=== PATIENT | female | born 1985 | race Hispanic/Latino ===

== ENCOUNTER 2020-05-29 11:14 | Emergency (ER) | payer OTHER ==
[2020-05-29] MEDS ORDERED: METHYLPREDNISOLONE 125 MG INJ ONE (12:33)
[2020-05-29] MEDS ORDERED: DIPHENHYDRAMINE 50 MG/ML VIAL ONE (12:33)
[2020-05-29] MEDS ORDERED: FENTANYL CITR 100 MCG/2 ML ONE (12:34)
[2020-05-29] MEDS ORDERED: ONDANSETRON 4 MG/2 ML VIAL ONE (12:34)
[2020-05-29 12:43] LABS: Absolute Lymphocytes (CBC) 3.1 K/uL (0.7-4.9); Basophils % 1.2 % (0-1.3); Hematocrit 39.7 % (36.0-45.0); Lymphocytes % 37.8 % (15.3-44.8); MPV 8.3 fL (7.6-11.3); RBC Red Blood Cell Count 4.28 M/uL (3.86-4.86)
[2020-05-29 12:49] LABS: ALT/SGPT 18 U/L (12-78); AST/SGOT 6 U/L (15-37); Albumin 3.8 g/dL (3.4-5.0); Alkaline Phosphatase 123 U/L (45-117); BUN Blood Urea Nitrogen 20 mg/dL (7-18); Bicarbonate 25 mmol/L (21-32); Bilirubin Direct 0.2 mg/dL (0-0.2); Bilirubin Total 0.6 mg/dL (0.2-1.0); Glucose Level 84 mg/dL (74-106); Lipase 93 U/L (73-393); Potassium 4.5 mmol/L (3.5-5.1); Protein, Total 7.7 g/dL (6.4-8.2); Sodium Level 141 mmol/L (136-145)
[2020-05-29 12:54] LABS: HCG, Quantitative < 1 mIU/mL (1-3)
--- NOTE | 2020-05-29 13:29 | RAD REPORT ---
EXAM DESCRIPTION: CTAbdomen Pelvis W Contrast - 05/29/2020 1:17 pm CLINICAL HISTORY: Abdominal pain. ABD PAIN COMPARISON: No comparisons TECHNIQUE: Biphasic CT imaging of the abdomen and pelvis was performed with 100 ml non-ionic IV cont rast. All CT scans are performed using dose optimization technique as appropriate and may include automated exposure control or mA/KV adjustment according to patient size. FINDINGS: The lung bases are clear. The liver, spleen, pancreas, adrenal glands and kidneys are within normal limits. No bowel obstruction, free air, free fluid or abscess. The appendix is normal. No evidence of signi ficant lymphadenopathy. No suspicious bony findings. Enlarged uterus with fluid in the endometrial canal noted. IMPRESSION: No acute intra-abdominal or pelvic finding. Enlarged uterus with fluid in the endometrial canal.
--- NOTE | 2020-05-29 14:02 | ER ---
Nurse's Notes [facility] Name: Bethany Duarte Age: 34 yrs Sex: Female : 1985 Arrival Date: 05/29/2020 Time: 11:17 Bed 14 Private MD: Diagnosis: Abdominal and pelvic pain Presentation: 05/29 11:27 Chief complaint: Patient states: C section on 05/11/2020/, had normal vaginal bleeding ca1 post delivery. Then past 2-3 days, been having pain on lower abdominal area and on the surgical incision site that radiates to the knees. Reports post op site healing well, intact, denies infection. Reports chills and bilateral inguinal pain. Denies urinary symptoms. Denies N/V/D. Coronavirus screen: Client denies travel out of the [place] in the last 14 days. chills, Client presents with at least one sign or symptom that may indicate coronavirus-19. Standard/surgical mask placed on the client. Provider contacted for isolation considerations. The client reports previous COVID testing was negative. Date of collection: May 11, 2020. Ebola Screen: Patient negative for fever greater than or equal to 101.5 degrees Fahrenheit, and additional compatible Ebola Virus Disease symptoms Patient denies exposure to infectious person. Patient denies travel to an Ebola-affected area in the 21 days before illness onset. No symptoms or risks identified at this time. Initial Sepsis Screen: Does the patient meet any 2 criteria? No. Patient's initial sepsis screen is negative. Does the patient have a suspected source of infection? No. Patient's initial sepsis screen is negative. Risk Assessment: Do you want to hurt yourself or someone else? Patient reports no desire to harm self or others. Onset of symptoms was May 29, 2020. 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 - Social history:: Smoking status: Patient reports the use of cigarette tobacco products, smokes one-half pack cigarettes per day. Screenin:35 Abuse screen: Denies threats or abuse. Nutritional screening: No deficits noted. tw2 Tuberculosis screening: No symptoms or risk factors identified. Fall Risk None identified. Assessment: 12:01 Reassessment: provider at bedside at this time. tw2 12:02 General: Appears in no apparent distress. well groomed, Behavior is calm, cooperative, tw2 appropriate for age. Pain: Complains of pain in right lower quadrant and left lower quadrant. Neuro: Level of Consciousness is awake, alert, obeys commands, Oriented to person, place, time, situation. Cardiovascular: Heart tones S1 S2 Patient's skin is warm and dry. Respiratory: Airway is patent Respiratory effort is even, unlabored, Respiratory pattern is regular, symmetrical, Breath sounds are clear bilaterally. GI: Abdomen is round non-distended, Bowel sounds present X 4 quads. Reports "pain on the right side of my incision line", no drainage noted to incision line and no s/s of infection noted on incision line. : Urine is clear, Reports vaginal bleeding that is n/a "small amount yesterday". EENT: No signs and/or symptoms were reported regarding the EENT system. Derm: No signs and/or symptoms reported regarding the dermatologic system. Musculoskeletal: Range of motion: intact in all extremities. 13:03 Reassessment: Patient appears in no apparent distress at this time. Patient and/or tw2 family updated on plan of care and expected duration. Pain level reassessed. Patient is alert, oriented x 3, equal unlabored respirations, skin warm/dry/pink. Patient states feeling better. Patient states symptoms have improved. 14:09 Reassessment: Patient appears in no apparent distress at this time. Patient and/or tw2 family updated on plan of care and expected duration. Pain level reassessed. Patient is alert, oriented x 3, equal unlabored respirations, skin warm/dry/pink. Vital Signs: 11:27 BP 135 / 82; Pulse 74; Resp 18 S; Temp 98.3(O); Pulse Ox 99% on R/A; Height 5 ft. 2 in. ca1 (157.48 cm) (R); Pain 7/10; 12:15 BP 115 / 66; Pulse 52; Resp 17; Pulse Ox 99% on R/A; tw2 13:03 BP 112 / 66; Pulse 51; Resp 17; Pulse Ox 99% on R/A; tw2 14:09 BP 116 / 68; Pulse 53; Resp 17; Pulse Ox 99% on R/A; tw2 ED Course: 11:17 Patient arrived in ED. ag5 11:32 Triage completed. ca1 11:34 Arm band placed on right wrist. ca1 11:35 Aretha Robins, RN is Primary Nurse. tw2 11:36 Placed in gown. Bed in low position. Call light in reach. pt in restroom at this time tw2 collected urine sample. Warm blanket given. 11:45 David Henriquez PA is PHCP. jr8 11:45 León Kruse MD is Attending Physician. jr8 13:17 CT Abd/Pelvis - IV Contrast Only In Process Unspecified. EDMS 14:09 No provider procedures requiring assistance completed. IV discontinued, intact, tw2 bleeding controlled, No redness/swelling at site. Pressure dressing applied. Administered Medications: 12:26 Drug: Zofran (Ondansetron) 4 mg Route: IVP; Site: right antecubital; tw2 12:55 Follow up: Response: No adverse reaction tw2 12:28 Drug: fentaNYL (PF) 50 mcg Route: IVP; Site: right antecubital; tw2 12:55 Follow up: Response: No adverse reaction; Pain is decreased; RASS: Alert and Calm (0) tw2 12:56 Drug: Zofran (Ondansetron) 4 mg Route: IVP; Site: right antecubital; tw2 13:33 Follow up: Response: No adverse reaction tw2 12:58 Drug: Benadryl 25 mg Route: IVP; Site: right antecubital; tw2 13:34 Follow up: Response: No adverse reaction tw2 12:59 Drug: SOLU-Medrol 125 mg Route: IVP; Site: right antecubital; tw2 13:33 Follow up: Response: No adverse reaction tw2 Outcome: 14:02 Discharge ordered by . jr8 14:09 Discharged to home ambulatory, with significant other. tw2 14:09 Condition: stable 14:09 Discharge instructions given to patient, significant other, Instructed on discharge instructions, follow up and referral plans. medication usage, Demonstrated understanding of instructions, follow-up care, medications, Prescriptions given X 1. 14:09 Patient left the ED. tw2 Signatures: Dispatcher [employer] EDMS David Henriquez PA PA jr8 Aretha Robins RN RN tw2 Beth Cruz RN RN ca1 Loan Bradley [facility]
--- NOTE | 2020-05-29 14:03 | EDPHYS ---
Physician Documentation [facility] Name: Bethany Duarte Age: 34 yrs Sex: Female : 1985 Arrival Date: 05/29/2020 Time: 11:17 Bed 14 Private MD: ED Physician León Kruse HPI: 05/29 14:05 This 34 yrs old Female presents to ER via Ambulatory with complaints of jr8 Vaginal Bleeding, Post Problem. 14:05 Onset: The symptoms/episode began/occurred acutely, yesterday. Modifying factors: The jr8 symptoms are alleviated by nothing, the symptoms are aggravated by nothing. Associated signs and symptoms: The patient has no apparent associated signs or symptoms. Severity of symptoms: At their worst the symptoms were moderate, in the emergency department the symptoms are unchanged. The patient has not experienced similar symptoms in the past. The patient has not recently seen a physician. Patient stated that she had May 11. Uncomplicated with 5 days of vaginal bleeding that has since subsided. Stated that yesterday noticed brown discharge with mild blood present. Started to have lower abdominal pain that is not going away. Denies fevers . 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 - Social history:: Smoking status: Patient reports the use of cigarette tobacco products, smokes one-half pack cigarettes per day. ROS: 14:05 Eyes: Negative for injury, pain, redness, and discharge, ENT: Negative for injury, jr8 pain, and discharge, Neck: Negative for injury, pain, and swelling, Cardiovascular: Negative for chest pain, palpitations, and edema, Respiratory: Negative for shortness of breath, cough, wheezing, and pleuritic chest pain, Back: Negative for injury and pain, MS/Extremity: Negative for injury and deformity, Skin: Negative for injury, rash, and discoloration, Neuro: Negative for headache, weakness, numbness, tingling, and seizure. 14:05 Abdomen/GI: Positive for abdominal pain, Negative for nausea, vomiting, and diarrhea. 14:05 : Positive for vaginal bleeding, vaginal discharge. Exam: 14:05 Constitutional: This is a well developed, well nourished patient who is awake, alert, jr8 and in no acute distress. Cardiovascular: Regular rate and rhythm with a normal S1 and S2. No gallops, murmurs, or rubs. Normal PMI, no JVD. No pulse deficits. Respiratory: Lungs have equal breath sounds bilaterally, clear to auscultation and percussion. No rales, rhonchi or wheezes noted. No increased work of breathing, no retractions or nasal flaring. Back: No spinal tenderness. No costovertebral tenderness. Full range of motion. Skin: Warm, dry with normal turgor. Normal color with no rashes, no lesions, and no evidence of cellulitis. MS/ Extremity: Pulses equal, no cyanosis. Neurovascular intact. Full, normal range of motion. Neuro: Awake and alert, GCS 15, oriented to person, place, time, and situation. Cranial nerves II-XII grossly intact. Motor strength 5/5 in all extremities. Sensory grossly intact. Cerebellar exam normal. Normal gait. 14:05 Abdomen/GI: Inspection: obese Bowel sounds: active, all quadrants, Palpation: soft, in all quadrants, moderate abdominal tenderness, in the right lower quadrant and left lower quadrant, rebound tenderness, is not appreciated, voluntary guarding, is not appreciated, involuntary guarding, is not appreciated, no appreciated organomegaly, Indicators: McBurney's point is not tender, Palacios's sign is negative, Rovsing's sign is negative, Liver: tenderness, is not appreciated. Vital Signs: 11:27 BP 135 / 82; Pulse 74; Resp 18 S; Temp 98.3(O); Pulse Ox 99% on R/A; Height 5 ft. 2 in. ca1 (157.48 cm) (R); Pain 7/10; 12:15 BP 115 / 66; Pulse 52; Resp 17; Pulse Ox 99% on R/A; tw2 13:03 BP 112 / 66; Pulse 51; Resp 17; Pulse Ox 99% on R/A; tw2 14:09 BP 116 / 68; Pulse 53; Resp 17; Pulse Ox 99% on R/A; tw2 MDM: 11:46 Patient medically screened. jr8 14:03 Data reviewed: vital signs, nurses notes, lab test result(s), radiologic studies, CT jr8 scan. Data interpreted: Pulse oximetry: on room air is 99 %. Interpretation: normal. Counseling: I had a detailed discussion with the patient and/or guardian regarding: the historical points, exam findings, and any diagnostic results supporting the discharge/admit diagnosis, lab results, radiology results, the need for outpatient follow up, an OB/Gyne specialist, to return to the emergency department if symptoms worsen or persist or if there are any questions or concerns that arise at home. ED course: Patient feeling better. CT shows no surgically emergent findings. Enlarged uterus present with fluid in it. Patient has had mild brown discharge. No foul smelling. No elevation in WBC count and no fever. Patient was out of proportion on initial exam. Will medicate incase mild endometritis is present . 05/29 12:09 Order name: Basic Metabolic Panel; Complete Time: 12:59 jr8 05/29 12:09 Order name: CBC with Diff; Complete Time: 12:45 jr8 05/29 12:09 Order name: Hepatic Function; Complete Time: 12:59 jr8 05/29 12:09 Order name: Lipase; Complete Time: 12:59 jr8 05/29 12:09 Order name: HCG-Quantitative; Complete Time: 12:59 jr8 05/29 12:10 Order name: CT Abd/Pelvis - IV Contrast Only; Complete Time: 13:36 8 05/29 12:09 Order name: IV Saline Lock; Complete Time: 12:29 jr8 05/29 12:09 Order name: Labs collected and sent; Complete Time: 12:29 jr8 05/29 12:10 Order name: Misc. Order: Pretreat patient with Solu medrol, benadryl, and more zofran jr8 [address]; Complete Time: 13:02 Administered Medications: 12:26 Drug: Zofran (Ondansetron) 4 mg Route: IVP; Site: right antecubital; tw2 12:55 Follow up: Response: No adverse reaction tw2 12:28 Drug: fentaNYL (PF) 50 mcg Route: IVP; Site: right antecubital; tw2 12:55 Follow up: Response: No adverse reaction; Pain is decreased; RASS: Alert and Calm (0) tw2 12:56 Drug: Zofran (Ondansetron) 4 mg Route: IVP; Site: right antecubital; tw2 13:33 Follow up: Response: No adverse reaction tw2 12:58 Drug: Benadryl 25 mg Route: IVP; Site: right antecubital; tw2 13:34 Follow up: Response: No adverse reaction tw2 12:59 Drug: SOLU-Medrol 125 mg Route: IVP; Site: right antecubital; tw2 13:33 Follow up: Response: No adverse reaction tw2 Disposition: 14:26 Co-signature as Attending Physician, León Kruse MD. rn Disposition: 05/29/20 14:02 Discharged to Home. Impression: Abdominal and pelvic pain. - Condition is Stable. - Discharge Instructions: Abdominal Pain, Adult, Endometritis. - Prescriptions for Doxycycline Monohydrate 100 mg Oral Tablet - take 1 tablet by ORAL route every 12 hours for 10 days; 20 tablet. - Medication Reconciliation Form, Thank You Letter, Antibiotic Education, Prescription Opioid Use form. - Follow up: Private Physician; When: 5 - 6 days; Reason: Recheck today's complaints, Continuance of care, Re-evaluation by your physician. - Problem is new. - Symptoms have improved. Signatures: Dispatcher [employer] EDLeón Elmore MD MD rn Roszak, Josh, PA PA jr8 Aretha Robins RN RN tw2 Beth Cruz RN RN ca1 Corrections: (The following items were deleted from the chart) 14:09 14:02 05/29/2020 14:02 Discharged to Home. Impression: Abdominal and pelvic pain. tw2 Condition is Stable. Forms are Medication Reconciliation Form, Thank You Letter, Antibiotic Education, Prescription Opioid Use. Follow up: Private Physician; When: 5 - 6 days; Reason: Recheck today's complaints, Continuance of care, Re-evaluation by your physician. Problem is new. Symptoms have improved. jr8
[2020-05-29 14:39] VITALS: TEMP 98.3; O2SAT 99
[2020-05-29 14:51] VITALS: BP 116/68
--- OUTSIDE RECORDS SUMMARY | 2020-05-30 20:16 | XMS REPORT | Continuity of Care Document ---
:1985 Author Organization [facility] t Address [address] [place] [address] Care Team Providers Name Role Phone Maureen Palacios MD Attending Clinician Kirsten GRIGGS Attending Clinician Ab NG Attending Clinician Ab NG Admitting Clinician Payers Payer Name Policy Type Policy Number Effective Date Expiration Date S ource Problems This patient has no known problems. Allergies, Adverse Reactions, Alerts Allergy Allergy Status Severity Reaction(s) Onset Inactive Treating Comm ents Source Name Type Date Date Clinician phenylep DA Active [facility] hrine 04-17 [place] 00:00: [address] iodine DA Active [facility] 8 [place] 00:00: [address] codeine DA Active [facility] [place] 00:00: [address] chlorphe DA [facility]amine 04-17 [place] 00:00: [address] latex DA Active [facility] 04-17 [place] 00:00: [address] phenylep DA Active [facility] hrine 806 [place] HCl 00:00: [address] iodine DA Active [facility] 8 [place] 00:00: [address] codeine DA Active [facility] 8-06 [place] 00:00: [facility] chlorphe DA Active [facility] niramine 8-06 [place] 00:00: [facility] latex DA Active [facility] 8-06 [place] 00:00: [address] phenylep DA Active [facility] hrine 6-11 [place] HCl 00:00: [address] iodine DA Active [facility] 6 [place] 00:00: [facility] codeine DA Active [facility] 6-11 [place] 00:00: [facility] chlorphe DA Active [facility] niramine 6 [place] 00:00: [address] latex DA Active [facility] 611 [place] 00:00: [address] Medications This patient has no known medications. Procedures This patient has no known procedures. Encounters Start End Encounter Admission Attending Care Care Encounter Source Date/Time Date/Time Type Type Clinicians Facility Department ID 2020-05-29 2020-05-29 Telephone Maureen Palacios [facility] [id number] 00:00:00 00:00:00 Misha Head [id number] [place] [id number] Professio [id number] [address] 2020-05-29 2020-05-29 Telephone Maureen Palacios [facility] [id number] 00:00:00 00:00:00 Misha Head [id number] [place] [id number] Professio [phone] [address] 2020-05-21 2020-05-21 [id number] 00:00:00 00:00:00 Sarah Beth Head [id number] [place] [id number] Professio [phone] [address] 2020-05-11 2020-05-13 [facility] ALISTAIR Berger [id number] 15:48:00 11:55:00 Encounter Tiffany RUSSELL [id number] [place] [id number] 2020-05-10 2020-05-10 Telephone Maureen Palacios [id number] 00:00:00 00:00:00 [place] [id number] [place] [id number] Professio [phone] [address] 2020-05-10 2020-05-10 Telephone Maureen Palacios [place] 1.2.840.114 [id number] 00:00:00 00:00:00 [place] [id number] [place] 4.2.7.2.686 Professio [phone] [address] 2020-05-08 2020-05-08 Telephone Maureen Palacios [place] 1.2.840.114 [id number] 00:00:00 00:00:00 [place] [id number] [place] [id number] Professio [phone] [address] 2020-05-06 2020-05-06 Routine Maureen Palacios [place] [id number] 14:51:16 16:17:56 [place] 350.1.13.10 Visit [place] 4.2.7.2.686 Professio [phone] [address] Results Test Description Test Time Test Comments Results Result Comments Source UA RFLX MICR CULT IF INDICATED 2019-10-17 03:35:00 Test Item Value Reference Range Interpretation Comme nts UA COLOR (test code = COLU) Yellow YELLOW UA APPEARANCE (test code = APPU) Clear CLEAR UA GLUCOSE DIPSTICK (test code = DGLUU) Normal NORMAL UA BILIRUBIN DIPSTICK (test code = BILU) Negative NEGATIVE UA KETONE DIPSTICK (test code = KETU) Trace NEGATIVE UA SPECIFIC GRAVITY (test code = SGU) 1.025 1.000-1.032 N UA BLOOD DIPSTICK (test code = SHAUNA) Negative NEGATIVE UA PH DIPSTICK (test code = TREVON) 6.0 5.0-9.0 N UA PROTEIN DIPSTICK (test code = PROU) Negative NEGATIVE UA UROBILINIOGEN DIPSTICK (test code = URO) Normal NORMAL UA NITRITE DIPSTICK (test code = MONSTER) Negative NEGATIVE UA LEUKOCYTE ESTERASE DIPSTICK (test code = LEUU) Negative NEGA TIVE UA WBC (test code = WBCU) 0-2 0-5 UA CULTURE NEEDED? (test code = UACULT) SOURCE: URINESPECIMEN DESCRIPTION: CMCIndication for culture: Suprapubic PainUA [id number] 03:35:00 Test Item Value Reference Range Interpretation Comments UA RBC (test code = RBCU) 6-10 0-5 UA EPITHELIAL CELLS (test code = EPIU) 6-10 0-10 UA MUCUS (test code = MUCU) OCC NONE-FEW SOURCE: URINESPECIMEN DESCRIPTION: CMCIndication for culture: Suprapubic PainUA RFLX MICR CULT IF [id number] 03:35:00 Test Item Value Reference Range Interpretation Comments UA COLOR (test code = COLU) Yellow YELLOW UA APPEARANCE (test code = Clear CLEAR APPU) UA GLUCOSE DIPSTICK (test Normal NORMAL code = DGLUU) UA BILIRUBIN DIPSTICK (test Negative NEGATIVE code = BILU) UA KETONE DIPSTICK (test Trace NEGATIVE code = KETU) UA SPECIFIC GRAVITY (test 1.025 1.000-1.032 N code = SGU) UA BLOOD DIPSTICK (test code Negative NEGATIVE = SHAUNA) UA PH DIPSTICK (test code = 6.0 5.0-9.0 N TREVON) UA PROTEIN DIPSTICK (test Negative NEGATIVE code = PROU) UA UROBILINIOGEN DIPSTICK Normal NORMAL (test code = URO) UA NITRITE DIPSTICK (test Negative NEGATIVE code = MONSTER) UA LEUKOCYTE ESTERASE Negative NEGATIVE DIPSTICK (test code = LEUU) UA WBC (test code = WBCU) 0-2 0-5 UA CULTURE NEEDED? (test Criteria not met code = UACULT) SOURCE: URINESPECIMEN DESCRIPTION: CMCIndication for culture: Suprapubic PainUA [id number] 03:35:00 Test Item Value Reference Range Interpretation Comments UA RBC (test code = RBCU) 6-10 0-5 UA EPITHELIAL CELLS (test code = EPIU) 6-10 0-10 UA MUCUS (test code = MUCU) OCC NONE-FEW SOURCE: URINESPECIMEN DESCRIPTION: CMCIndication for culture: Suprapubic PainUA RFLX MICR CULT IF [id number] 03:34:00 Test Item Value Reference Range Interpretation Comments UA COLOR (test code = COLU) Yellow YELLOW UA APPEARANCE (test code = APPU) Clear CLEAR UA GLUCOSE DIPSTICK (test code = Normal NORMAL DGLUU) UA BILIRUBIN DIPSTICK (test code = Negative NEGATIVE BILU) UA KETONE DIPSTICK (test code = Trace NEGATIVE KETU) UA SPECIFIC GRAVITY (test code = 1.025 1.000-1.032 N SGU) UA BLOOD DIPSTICK (test code = SHAUNA) Negative NEGATIVE UA PH DIPSTICK (test code = TREVON) 6.0 5.0-9.0 N UA PROTEIN DIPSTICK (test code = Negative NEGATIVE PROU) UA UROBILINIOGEN DIPSTICK (test code Normal NORMAL = URO) UA NITRITE DIPSTICK (test code = Negative NEGATIVE MONSTER) UA LEUKOCYTE ESTERASE DIPSTICK (test Negative NEGATIVE code = LEUU) UA WBC (test code = WBCU) 0-5 UA CULTURE NEEDED? (test code = UACULT) SOURCE: URINESPECIMEN DESCRIPTION: CMCIndication for culture: Suprapubic PainUA [id number] 03:34:00 Test Item Value Reference Range Interpretation Comments UA RBC (test code = RBCU) 0-5 SOURCE: URINESPECIMEN DESCRIPTION: CMCIndication for culture: Suprapubic PainHCG [id number] 02:15:00 Test Item Value Reference Range Interpretation Comments HCG SERUM (test 314166 mIU/mL <5 Reporting U nits: code = HCG) micro-internati onal units/mL Concen tration of beta-HCG if healthy non- fe maleis less than 5 micro-internati onal units/mL. Weeks Post LMP Approx hCG Rang e(Last Menstrual Perio d) micro-internati onal units/mL======= ========= ======= ========= ==== 3-4 weeks 9 - 130 4-5 weeks 75 - 2,600 5-6 week s 850 - 20,800 6-7 wee ks 4,000 - 100,200 7-12 weeks 11,500 - 289,00 012-16 weeks 18,300 - 137,41099-15 we eks 1,400 - 53,000(2nd Trimester)29-41 weeks 940 - 60,000(3r d Trimester) - US ABDOMEN [id number] 02:06:00 [place]: [facility] St: REG Name: MARCE BOWER [facility] : 1985 Age/S: 34/F [address] [facility] Unit #: [id number] [facility] [place] [place] [address] Phys: Desiree Rodriguez MD Acct: [id number] Dis Date: Status: REG ER PHONE #: [phone] Exam Date: 10/17/2019 0115 FAX #: [phone] Reason: upper abd pain and tenderness EXAMS: CPT CODE: [id number] US ABDOMEN LTD 28285[place] ultrasound. History: First trimester . Vaginal bleeding. Tech nique and Findings: Ashley scale, color and pulsed Doppler imaging were utilized. Nocomparison studies are available. The uterus measures 11.3 x 5.2 x 7.9 cm. The crown-rump length measures 1.2 cm. The approximate gestational age of the fetus is 7 weeks 2 days. The uterus appears otherwise unremarkable.. heart tones measure 155 bpm. The right ovary measures 2.6 x 2.3 x 2.2 cm. The left ovary measures 1.8 x 1.7 x 1.9 cm. A normal flow pattern is seen in both ovaries. There is no evidence of free fluid within the pelvis. Impression: Single live intrauterine of an approximate gestational age of 7 weeks 2 days. ULTRASOUND: - US PREG 1ST TRIMTR, - US ABDOMEN LTD History: pelvic pain Comparison: None available. Findings: The limitedly visualized portion of the liver has relatively increased echogenicity. No intrahepatic ductal dilation is seen. No cholelithiasis is seen. There is no gallbladder wall thickening or pericholecystic free fluid The common bile duct measures 4 mm The pancreas is incompletely visualized. The right kidney measuring 9.6 cm there is no hydronephrosis. Visualized portions of the aorta and IVC are normal. PAGE 1 Signed Report (CONTINUED) [place]: [facility] St: REG Name: MARCE BOWER [facility] : 1985 Age/S: 34/F [address] Unit #: [id number] Loc: [place] [address] Phys: Desiree Rodriguez MD Acct: [id number] Dis Date: Status: REG ER PHONE #: [phone] Exam Date: 10/17/2019 0115 FAX #: [phone] Reason: upper abdpain and tenderness EXAMS: CPT CODE: [id number] US ABDOMEN LTD 06016 <Continued> Impression: No sonographic evidence of cholelithiasis or acute cholecystitis The appearance the liver is nonspecific but may reflect steatosis versus underlying parenchymal disease at 0206 Reported and signed by: JEAN BORRERO M.D. Facility ACR Accreditation for Ultrasound - September 2011 CC: Bentley Arnett MD; Desiree Rodriguez MD Technologist: ELSIE GAVIN RDMS Transcribed Date/Time/By: 10/17/2019 (205) : By: [email or web address] Orig Print D/T: S: 10/17/2019 (0209) PAGE 2 Signed Report- US PREG [id number] 02:06:00 [place]: [facility] St: REG Name: MARCE BOWER [facility] [place] : 1985 Age/S: 34/F [address] [facility] Unit #: [id number] [facility] [place], [place] [address] Phys: Desiree Rodriguez MD Acct: [id number] Dis Date: Status: REG ER PHONE #: [phone] Exam Date: 10/17/2019 011 FAX #: [phone] Reason: pelvic pain EXAMS: CPT CODE: [id number] US PREG 1ST TRIMTR 15[address] ultrasound. History: First trimester . Vaginal bleeding. Tech nique and Findings: Ashley scale, color and pulsed Doppler imaging were utilized. Nocomparison studies are available. The uterus measures 11.3 x 5.2 x 7.9 cm. The crown-rump length measures 1.2 cm. The approximate gestational age of the fetus is 7 weeks 2 days. The uterus appears otherwise unremarkable.. heart tones measure 155 bpm. The right ovary measures 2.6 x 2.3 x 2.2 cm. The left ovary measures 1.8 x 1.7 x 1.9 cm. A normal flow pattern is seen in both ovaries. There is no evidence of free fluid within the pelvis. Impression: Single live intrauterine of an approximate gestational age of 7 weeks 2 days. ULTRASOUND: - US PREG 1ST TRIMTR, - US ABDOMEN LTD History: pelvic pain Comparison: None available. Findings: The limitedly visualized portion of the liver has relatively increased echogenicity. No intrahepatic ductal dilation is seen. No cholelithiasis is seen. There is no gallbladder wall thickening or pericholecystic free fluid The common bile duct measures 4 mm The pancreas is incompletely visualized. The right kidney measuring 9.6 cm there is no hydronephrosis. Visualized portions of the aorta and IVC are normal. PAGE 1 Signed Report (CONTINUED) [place]: [facility] St: REG Name: MARCE BOWER [facility] : 1985 Age/S: 34/F [address] Unit #: [id number] Loc: [facility] [place], [place] [address] Phys: Desiree Rodriguez MD Acct: [id number] Dis Date: Status: REG ER PHONE #: [phone] Exam Date: 10/17/2019 011 FAX #: [phone] Reason: pelvic pain EXAMS: CPT CODE: [id number] US PREG 1ST TRIMTR 11604 <Continued> Impression: No sonographic evidence of cholelithiasis or acute cholecystitis The appearance the liver is nonspecific but may reflect steatosis versus underlying parenchymal disease at 0206 Reported and signed by: JEAN BORRERO M.D. Facility ACR Accreditation for Ultrasound - September 2011 CC: Bentley Arnett MD; Desiree Rodriguez MD Technologist: ELSIE GAVIN RDMS Transcribed Date/Time/By: 10/17/2019 (0206) : By: [email or web address] Orig Print D/T: S: 10/17/2019 (0205) PAGE 2 Signed ReportBASIC METABOLIC [id number] 01:39:00 Test Item Value Reference Range Interpretation Comments SODIUM (test code = 137 mmol/L 136-145 N NA) POTASSIUM (test code = 4.2 mmol/L 3.5-5.1 N K) CHLORIDE (test code = 109 mmol/L 98-107 H CL) CARBON DIOXIDE (test 18 mmol/L 21-32 L code = CO2) GLUCOSE (test code = 103 mg/dL 65-99 H GLU) BLOOD UREA NITROGEN 13 mg/dL 7-18 N (test code = BUN) GLOMERULAR FILTRATION 103 Report ing units: RATE (test code = GFR) ml/mi n/1.73m\\S\\2 (Modified MDRD Formula)If age < 18 years, GFR is n ot applicable. KD/ DOQI Clinical Practi ce Guidelines: Sta ge 1: Kidney damage w/normal or inc reased GFR >90Stag e 2: Kidney damage w /mild decrease in GFR 60 - 89Stage 3: Moderate decrea se in GFR 30 - 59Stage 4: Severe decrease in GFR 15 - 29Stage 5: Kidney failure < 15 (or dialysis) CREATININE (test code 0.7 mg/dL 0.6-1.0 N = CREAT) CALCIUM (test code = 8.4 mg/dL 7.8-10.9 N CA) BASIC METABOLIC [id number] 01:30:00 Test Item Value Reference Range Interpretation Comments SODIUM (test code = NA) 137 mmol/L 136-145 N POTASSIUM (test code = K) 4.2 mmol/L 3.5-5.1 N CHLORIDE (test code = CL) 109 mmol/L 98-107 H CARBON DIOXIDE (test code = CO2) 18 mmol/L 21-32 L GLUCOSE (test code = GLU) mg/dL 65-99 BLOOD UREA NITROGEN (test code = mg/dL 7-18 BUN) GLOMERULAR FILTRATION RATE (test code = GFR) CREATININE (test code = CREAT) mg/dL 0.6-1.0 CALCIUM (test code = CA) 8.4 mg/dL 7.8-10.9 N CBC W/AUTO [id number] 01:10:00 Test Item Value Reference Range Interpretation Comments WHITE BLOOD CELL (test code = 15.8 K/mm3 4.8-10.8 H WBC) RED BLOOD CELL (test code = RBC) 4.29 M/mm3 4.2-5.4 N HEMOGLOBIN (test code = HGB) 13.3 gm/DL 12.0-16.0 N HEMATOCRIT (test code = HCT) 38.5 % 34.7-43.3 N MEAN CELL VOLUME (test code = 89.7 fL 81-99 N MCV) MEAN CELL HGB (test code = MCH) 31.0 pg 27-31 N MEAN CELL HGB CONCETRATION (test 34.5 gm/dL 33-37 N code = MCHC) RED CELL DISTRIBUTION WIDTH (test 12.7 % 11.5-14.5 N code = RDW) PLATELET COUNT (test code = PLT) 327 X10(3) 130-400 N MEAN PLATELET VOLUME (test code = 10.0 fL 9.4-12.4 N MPV) NEUTROPHIL % (test code = NT%) 85.1 % 51.5-79.7 H IMMATURE GRANULOCYTE % (test code 0.500 % 0.108-0.322 H = IG%) LYMPHOCYTE % (test code = LY%) 9.5 % 14-40 L MONOCYTE % (test code = MO%) 4.3 % 4.0-10.2 N EOSINOPHIL % (test code = EO%) 0.5 % 0-4.1 N BASOPHIL % (test code = BA%) 0.1 % 0.1-0.7 N NUCLEATED RBC % (test code = 0 % 0-0 N NRBC%) NEUTROPHIL # (test code = NT#) 13.4 K/mm3 2.5-8.6 H IMMATURE GRANULOCYTE # (test code 0.080 K/mm3 0.0052-0.0224 H = IG#) LYMPHOCYTE # (test code = LY#) 1.5 K/mm3 1.1-3.6 N MONOCYTE # (test code = MO#) 0.7 K/mm3 0.3-0.9 N EOSINOPHIL # (test code = EO#) 0.08 # 0.0-0.4 N BASOPHIL # (test code = BA#) 0.02 K/mm3 0.0-0.2 N NUCLEATED RBC # (test code = 0.00 K/mm3 0.00-0.20 N NRBC#) POC LACTIC [id number] 15:26:00 Test Item Value Reference Range Interpretation Comments POC LACTIC ACID (test code = 1.08 MMOL/L 0.40-2.00 N POCLAC) UA RFLX MICR CULT IF [id number] 14:14:00 Test Item Value Reference Range Interpretation Comments UA COLOR (test code = COLU) YELLOW YELLOW UA APPEARANCE (test code = CLEAR CLEAR APPU) UA GLUCOSE DIPSTICK (test NEGATIVE NEGATIVE code = DGLUU) UA BILIRUBIN DIPSTICK (test NEGATIVE NEGATIVE code = BILU) UA KETONE DIPSTICK (test NEGATIVE NEGATIVE code = KETU) UA SPECIFIC GRAVITY (test 1.015 1.000-1.030 N code = SGU) UA BLOOD DIPSTICK (test code NEGATIVE NEGATIVE = SHAUNA) UA PH DIPSTICK (test code = 6.0 5.0-8.5 N TREVON) UA PROTEIN DIPSTICK (test NEGATIVE NEGATIVE code = PROU) UA UROBILINIOGEN DIPSTICK 0.2 EU/DL <=1.0 EU/DL (test code = URO) UA NITRITE DIPSTICK (test NEGATIVE NEGATIVE code = MONSTER) UA LEUKOCYTE ESTERASE NEGATIVE NEGATIVE DIPSTICK (test code = LEUU) UA WBC (test code = WBCU) 0-2 0-5 UA CULTURE NEEDED? (test Criteria not met code = UACULT) SOURCE: URINESPECIMEN DESCRIPTION: CMCIndication for culture: Sev. Sepsis-no other srcHEPATIC FUNCTION [id number] 14:01:00 Test Item Value Reference Range Interpretation Comments TOTAL PROTEIN (test 7.6 g/dL 6.4-8.2 N code = PROT) ALBUMIN (test code = 3.4 g/dL 3.4-5.0 N ALB) GLOBULIN (test code = 4.2 gm/dL 2.3-3.5 H GLOB) ALBUMIN/GLOBULIN 0.8 1.5-2.2 L RATIO (test code = A/G) BILIRUBIN TOTAL (test 0.6 mg/dL 0.0-1.1 N code = BILT) BILIRUBIN DIRECT <0.1 mg/dL 0.05-0.3 N (test code = BILD) BILIRUBIN INDIRECT 0.5 mg/dL 0.0-0.6 N (test code = BILIND) SGOT/AST (test code = 11 U/L 15-37 L Report ing units: AST) International U nits/L SGPT/ALT (test code = 23 U/L 10-30 N Report ing units: ALT) International U nits/L ALKALINE PHOSPHATASE 94 U/L 45-117 N TOTAL (test code = ALKP) [id number] 14:01:00 Test Item Value Reference Range Interpretation Comments TROPONIN-I (test <0.02 ng/mL 0.00-0.05 N <0.05 code = TROPI) Normal0.06 - 0 .39 Consistent with circulating Tro ponin with possible Myocar dial injury.>0.40 Consistent with Myocardial inju ry exten sive enough to confo rm with AMI as defined by WHO. PROCALCITONIN (PCT)2019-05-29 14:01:00 Test Item Value Reference Range Interpretation Comments PROCALCITONIN (PCT) (test code = 0.06 ng/mL 0.00-0.05 H PROCAL) - XR CHEST 1 [id number] 13:43:00 FAX: Beto Montgomery MD Cam[place]: ER St: REG FAX: Marcos Mayer FAX: Bentley Chamorro MD [phone] Name: MARCE BOWER [facility] : 1985 Age/S: 33/F [address] [facility] Unit #: [id number] Loc: [place], [place] [address] Phys: Marcos Bonilla Acct: [id number] Dis Date: Status: REG ER PHONE #: [phone] Exam Date: 05/29/2019 1253 FAX #: [phone] Reason: cough EXAMS: CPT CODE: [id number] XR CHEST 1 V 68058 - XR CHEST 1 V PROVIDED REASON FOR EXAM: cough COMPARISON: March 2019 FINDINGS: Lungs are clear of focal consolidation. Cardiac silhouette is unremarkable . Pulmonary vasculature is unremarkable . There are no acute osseous findings. IMPRESSION: No acute cardiopulmonary process. Location: V20 at 1343 Reported and signed by: DEANDRE ROJAS MD CC: Beto Puri MD; Marcos HUNT; Bentley Arnett MD Technologist: DEE MILLER RT(R) ARRT Transcribed Date/Time/By: 05/29/2019 (1151) :[email or web address] Orig Print D/T: S: 05/29/2019 (3074) Automated exposure control, iterative reconstruction technique, and/oradjustment of mA and/or kV according to patient's size was utilizedfor optimum radiation dose reduction. PAGE 1 Signed ReportUA RFLX MICR CULT IF [id number] 13:21:00 Test Item Value Reference Range Interpretation Comments UA COLOR (test code = COLU) YELLOW YELLOW UA APPEARANCE (test code = APPU) CLEAR CLEAR UA GLUCOSE DIPSTICK (test code = NEGATIVE NEGATIVE DGLUU) UA BILIRUBIN DIPSTICK (test code = NEGATIVE NEGATIVE BILU) UA KETONE DIPSTICK (test code = NEGATIVE NEGATIVE KETU) UA SPECIFIC GRAVITY (test code = 1.015 1.000-1.030 N SGU) UA BLOOD DIPSTICK (test code = SHAUNA) NEGATIVE NEGATIVE UA PH DIPSTICK (test code = TREVON) 6.0 5.0-8.5 N UA PROTEIN DIPSTICK (test code = NEGATIVE NEGATIVE PROU) UA UROBILINIOGEN DIPSTICK (test 0.2 EU/DL <=1.0 EU/DL code = URO) UA NITRITE DIPSTICK (test code = NEGATIVE NEGATIVE MONSTER) UA LEUKOCYTE ESTERASE DIPSTICK NEGATIVE NEGATIVE (test code = LEUU) UA WBC (test code = WBCU) 0-5 UA CULTURE NEEDED? (test code = UACULT) SOURCE: URINESPECIMEN DESCRIPTION: CMCIndication for culture: Sev. Sepsis-no other srcHEPATIC FUNCTION [id number] 13:19:00 Test Item Value Reference Range Interpretation Comments TOTAL PROTEIN (test 7.6 g/dL 6.4-8.2 N code = PROT) ALBUMIN (test code = 3.4 g/dL 3.4-5.0 N ALB) GLOBULIN (test code = 4.2 gm/dL 2.3-3.5 H GLOB) ALBUMIN/GLOBULIN 0.8 1.5-2.2 L RATIO (test code = A/G) BILIRUBIN TOTAL (test 0.6 mg/dL 0.0-1.1 N code = BILT) BILIRUBIN DIRECT <0.1 mg/dL 0.05-0.3 N (test code = BILD) BILIRUBIN INDIRECT 0.5 mg/dL 0.0-0.6 N (test code = BILIND) SGOT/AST (test code = 11 U/L 15-37 L Report ing units: AST) International U nits/L SGPT/ALT (test code = 23 U/L 10-30 N Report ing units: ALT) International U nits/L ALKALINE PHOSPHATASE 94 U/L 45-117 N TOTAL (test code = ALKP) [id number] 13:19:00 Test Item Value Reference Range Interpretation Comments TROPONIN-I (test <0.02 ng/mL 0.00-0.05 N <0.05 code = TROPI) Normal0.06 - 0 .39 Consistent with circulating Tro ponin with possible Myocar dial injury.>0.40 Consistent with Myocardial inju ry exten sive enough to confo rm with AMI as defined by WHO. PROCALCITONIN (PCT)2019-05-29 13:19:00 Test Item Value Reference Range Interpretation Comments PROCALCITONIN (PCT) (test code = ng/mL 0.00-0.05 PROCAL) CBC W/AUTO [id number] 13:06:00 Test Item Value Reference Range Interpretation Comments WHITE BLOOD CELL (test code = 18.9 K/mm3 4.8-10.8 H WBC) RED BLOOD CELL (test code = RBC) 4.32 M/mm3 4.2-5.4 N HEMOGLOBIN (test code = HGB) 13.3 gm/DL 12.0-16.0 N HEMATOCRIT (test code = HCT) 38.6 % 34.7-43.3 N MEAN CELL VOLUME (test code = 89.4 fL 81-99 N MCV) MEAN CELL HGB (test code = MCH) 30.8 pg 27-31 N MEAN CELL HGB CONCETRATION (test 34.5 gm/dL 33-37 N code = MCHC) RED CELL DISTRIBUTION WIDTH (test 13.3 % 11.5-14.5 N code = RDW) PLATELET COUNT (test code = PLT) 225 X10(3) 130-400 N MEAN PLATELET VOLUME (test code = 9.5 fL 9.4-12.4 N MPV) NEUTROPHIL % (test code = NT%) 86.9 % 51.5-79.7 H IMMATURE GRANULOCYTE % (test code 1.000 % 0.108-0.322 H = IG%) LYMPHOCYTE % (test code = LY%) 6.5 % 14-40 L MONOCYTE % (test code = MO%) 5.4 % 4.0-10.2 N EOSINOPHIL % (test code = EO%) 0.1 % 0-4.1 N BASOPHIL % (test code = BA%) 0.1 % 0.1-0.7 N NUCLEATED RBC % (test code = 0 % 0-0 N NRBC%) NEUTROPHIL # (test code = NT#) 16.4 K/mm3 2.5-8.6 H IMMATURE GRANULOCYTE # (test code 0.190 K/mm3 0.0052-0.0224 H = IG#) LYMPHOCYTE # (test code = LY#) 1.2 K/mm3 1.1-3.6 N MONOCYTE # (test code = MO#) 1.0 K/mm3 0.3-0.9 H EOSINOPHIL # (test code = EO#) 0.01 # 0.0-0.4 N BASOPHIL # (test code = BA#) 0.02 K/mm3 0.0-0.2 N NUCLEATED RBC # (test code = 0.00 K/mm3 0.00-0.20 N NRBC#) CHEMISTRY 8 [id number] 12:48:00 Test Item Value Reference Range Interpretation Comments IONIZED CALCIUM (test code = 1.17 mmol/L 1.13-1.32 N CAIABG) ISTAT-TCO2 VENOUS (test code = 21 MMOL/L 24-30 L TCO2VP) ISTAT-HEMOGLOBIN (test code = 13.9 G/DL 12.0-16.0 N HBP) ISTAT-HEMATOCRIT (test code = 41 % 44.0-56.0 L HCTP) ISTAT-SODIUM (test code = NAP) 135 MMOL/L 136-145 L ISTAT-POTASSIUM (test code = KP) 3.8 MMOL/L 3.5-5.1 N ISTAT-CHLORIDE (test code = CLP) 102 MMOL/L 98-107 N ISTAT GLUCOSE (test code = GLUP) 132 MG/DL 65-99 H ISTAT-BUN (test code = BUNP) 15 MG/DL 7-18 N BEDSIDE CREATININE (test code = 0.6 MG/DL 0.6-1.0 N CREATBED) POC LACTIC [id number] 12:43:00 Test Item Value Reference Range Interpretation Comments POC LACTIC ACID 2.86 MMOL/L 0.40-2.00 H RESULTS CALL ED TO [] (test code = POCLAC) AT 1243 05/29/19.NMI-MT CRITICA L VALUE READ BA CK BY NURSE AND VERIF IED BY TECH? []REFEREN CE RANGES FOR: 1) ARTERIAL SAMPLE (0.5-1.6MMOL/L) 2) SPINAL FLUID (0.6-2.2MMOL/L) UR HCG [id number] 23:25:00 Test Item Value Reference Range Interpretation Comments UR HCG QUAL (test code = HCGQLU) NEGATIVE Do not do if urine colorless or bloody CLEARUPG RESULT: NEGATIVEPERFORMED BY: LCHCG LOT # : [id number] EXPIRATION DATE: 10/20/20HCG PROCEDURAL CONTROL VERIFIED KIT LOT # [id number]. DATE 10/20/20- CT ABD PELVIS [id number] 16:29:00 [place]: [facility] St: REG Name: MARCE BOWER [facility] : 1985 Age/S: 33/F [address] [id number] [place], [place] [address] Phys: Beto Puri MD Acct: [id number] Dis Date: Status: REG ER PHONE #: [phone] Exam Date: 04/17/2019 5116 FAX #: [phone] Reason: ABD PAIN, RLQ CTDI: DLP: Automated exposure control, iterative reconstruction technique, and/oradjustment of mAand/or kV according to patient's size was utilized fooptimum radiation dose reduction. EXAMS: CPT CODE: [id number] CT ABD PELVIS W/CONT 48493 - CT ABD PELVIS W/CONT REASON FOR EXAM: ABD PAIN, RLQ TECHNIQUE: Volumetric CT data acquisition of the abdomen and pelvis was performed after the administration of IV contrast. Axial, sagittal, and coronal data sets are provided. All CT scan to performed using radiation dose reduction technique. Technical factors are evaluated to insure appropriate moderation of exposure. Automated dose management technologies applied to adjust the radiation dose to minimize exposure well achieving a diagnostic quality image. COMPARISON: February 2016. FINDINGS: VISUALIZED THORAX: Unremarkable. ABDOMEN / PELVIS: Liver: Unremarkable. Gallbladder: Unremarkable. Spleen: Unremarkable. Pancreas: Unremarkable. Adrenal glands: Unremarkable. Kidneys / Ureters: Unremarkable. Small Bowel: Unremarkable. Colon: The colon is unremarkable. The appendix is normal. Bladder: Unremarkable. Reproductive organs No significant abnormality. Adenopathy: No significant adenopathy. Fluid: No free fluid or fluid collection. Vascular: No significant abnormality. Other: No free air. OSSEOUS STRUCTURES: No significant abnormality. 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 : 1985 Age/S: 33/F [address] [facility] Unit #: [id number] Loc: [place], [place] [address] Phys: Beto Puri MD Acct: [id number] Dis Date: Status: REG ER PHONE #: [phone] Exam Date: 04/17/2019 1540 FAX #: [phone] Reason: ABD PAIN, RLQ CTDI: DLP: Automated exposure control, iterative reconstruction technique, and/oradjustment of mA and/or kV according to patient's size was utilized fooptimum radiation dose reduction. EXAMS: CPT CODE: [id number] CT ABD PELVIS W/CONT 68833 <Continued> IMPRESSION: No acute process in the abdomen or pelvis. The appendix is normal. Location: V20 at 1629 Reported and signed by:DEANDRE ROJAS MD Facility ACR Accreditation for March 2012 CC: Latasha Corado REGIONAL LOSS PREVENTION MANAGER; Beto Puri MD; Bentley Arnett MD Technologist: LILIAN BOWER RT(R) (ARRT) Transcribed Date/Time/By: 04/17/2019 (3186) : By: [email or web address] Orig Print D/T: S: 04/17/2019 (1218) PAGE 2 Signed ReportURINALYSIS W/O [id number] 15:21:00 Test Item Value Reference Range Interpretation Comments UA COLOR (test code = COLU) YELLOW YELLOW UA APPEARANCE (test code = SLIGHTLY HAZY CLEAR APPU) UA GLUCOSE DIPSTICK (test code NEGATIVE NEGATIVE = DGLUU) UA BILIRUBIN DIPSTICK (test SMALL NEGATIVE code = BILU) UA KETONE DIPSTICK (test code = SMALL NEGATIVE A KETU) UA SPECIFIC GRAVITY (test code 1.025 1.000-1.030 N = SGU) UA BLOOD DIPSTICK (test code = TRACE NEGATIVE A SHAUNA) UA PH DIPSTICK (test code = 6.0 5.0-8.5 N TREVON) UA PROTEIN DIPSTICK (test code TRACE NEGATIVE A = PROU) UA UROBILINIOGEN DIPSTICK (test 1.0 EU/DL <=1.0 EU/DL code = URO) UA NITRITE DIPSTICK (test code NEGATIVE NEGATIVE = MONSTER) UA LEUKOCYTE ESTERASE DIPSTICK NEGATIVE NEGATIVE (test code = LEUU) SOURCE: URINESPECIMEN DESCRIPTION: CMCUA [id number] 15:21:00 Test Item Value Reference Range Interpretation Comments UA WBC (test code = WBCU) 2-5 0-5 UA RBC (test code = RBCU) 1-5 0-5 UA BACTERIA (test code = BACU) 1+ NONE SEEN UA SQUAMOUS CELLS (test code = 5-10 #/lpf NONE SEEN SQU) SOURCE: URINESPECIMEN DESCRIPTION: CMCURINALYSIS W/O [id number] 14:48:00 Test Item Value Reference Range Interpretation Comments UA COLOR (test code = COLU) YELLOW YELLOW UA APPEARANCE (test code = SLIGHTLY HAZY CLEAR APPU) UA GLUCOSE DIPSTICK (test code NEGATIVE NEGATIVE = DGLUU) UA BILIRUBIN DIPSTICK (test SMALL NEGATIVE code = BILU) UA KETONE DIPSTICK (test code = SMALL NEGATIVE A KETU) UA SPECIFIC GRAVITY (test code 1.025 1.000-1.030 N = SGU) UA BLOOD DIPSTICK (test code = TRACE NEGATIVE A SHAUNA) UA PH DIPSTICK (test code = 6.0 5.0-8.5 N TREVON) UA PROTEIN DIPSTICK (test code TRACE NEGATIVE A = PROU) UA UROBILINIOGEN DIPSTICK (test 1.0 EU/DL <=1.0 EU/DL code = URO) UA NITRITE DIPSTICK (test code NEGATIVE NEGATIVE = MONSTER) UA LEUKOCYTE ESTERASE DIPSTICK NEGATIVE NEGATIVE (test code = LEUU) SOURCE: URINESPECIMEN DESCRIPTION: [facility] [id number] 14:48:00 Test Item Value Reference Range Interpretation Comments UA WBC (test code = WBCU) 0-5 UA RBC (test code = RBCU) 0-5 SOURCE: URINESPECIMEN DESCRIPTION: [facility]/O [id number] 14:48:00 Test Item Value Reference Range Interpretation Comments UA COLOR (test code = COLU) YELLOW YELLOW UA APPEARANCE (test code = SLIGHTLY HAZY CLEAR APPU) UA GLUCOSE DIPSTICK (test code NEGATIVE NEGATIVE = DGLUU) UA BILIRUBIN DIPSTICK (test SMALL NEGATIVE code = BILU) UA KETONE DIPSTICK (test code = SMALL NEGATIVE A KETU) UA SPECIFIC GRAVITY (test code 1.025 1.000-1.030 N = SGU) UA BLOOD DIPSTICK (test code = TRACE NEGATIVE A SHAUNA) UA PH DIPSTICK (test code = 6.0 5.0-8.5 N TREVON) UA PROTEIN DIPSTICK (test code TRACE NEGATIVE A = PROU) UA UROBILINIOGEN DIPSTICK (test 1.0 EU/DL <=1.0 EU/DL code = URO) UA NITRITE DIPSTICK (test code NEGATIVE NEGATIVE = MONSTER) UA LEUKOCYTE ESTERASE DIPSTICK NEGATIVE NEGATIVE (test code = LEUU) SOURCE: URINESPECIMEN DESCRIPTION: [facility] [id number] 14:48:00 Test Item Value Reference Range Interpretation Comments UA WBC (test code = WBCU) 0-5 UA RBC (test code = RBCU) 0-5 SOURCE: URINESPECIMEN DESCRIPTION: [facility] [id number] 13:28:00 Test Item Value Reference Range Interpretation Comments TOTAL PROTEIN (test 8.5 g/dL 6.4-8.2 H code = PROT) ALBUMIN (test code = 4.1 g/dL 3.4-5.0 N ALB) GLOBULIN (test code = 4.4 gm/dL 2.3-3.5 H GLOB) ALBUMIN/GLOBULIN 0.9 1.5-2.2 L RATIO (test code = A/G) BILIRUBIN TOTAL (test 0.5 mg/dL 0.0-1.1 N code = BILT) BILIRUBIN DIRECT <0.1 mg/dL 0.05-0.3 N (test code = BILD) BILIRUBIN INDIRECT 0.4 mg/dL 0.0-0.6 N (test code = BILIND) SGOT/AST (test code = 13 U/L 15-37 L Report ing units: AST) International U nits/L SGPT/ALT (test code = 20 U/L 10-30 N Report ing units: ALT) International U nits/L ALKALINE PHOSPHATASE 94 U/L 45-117 N TOTAL (test code = ALKP) CHEMISTRY 8 [id number] 13:08:00 Test Item Value Reference Range Interpretation Comments IONIZED CALCIUM (test code = 1.11 mmol/L 1.13-1.32 L CAIABG) ISTAT-TCO2 VENOUS (test code = 21 MMOL/L 24-30 L TCO2VP) ISTAT-HEMOGLOBIN (test code = 15.3 G/DL 12.0-16.0 N HBP) ISTAT-HEMATOCRIT (test code = 45 % 44.0-56.0 N HCTP) ISTAT-SODIUM (test code = NAP) 140 MMOL/L 136-145 N ISTAT-POTASSIUM (test code = KP) 3.8 MMOL/L 3.5-5.1 N ISTAT-CHLORIDE (test code = CLP) 107 MMOL/L 98-107 N ISTAT GLUCOSE (test code = GLUP) 97 MG/DL 65-99 N ISTAT-BUN (test code = BUNP) 20 MG/DL 7-18 H BEDSIDE CREATININE (test code = 0.7 MG/DL 0.6-1.0 N CREATBED) CBC W/AUTO [id number] 12:37:00 Test Item Value Reference Range Interpretation Comments WHITE BLOOD CELL (test code = 8.4 K/mm3 4.8-10.8 N WBC) RED BLOOD CELL (test code = RBC) 4.83 M/mm3 4.2-5.4 N HEMOGLOBIN (test code = HGB) 14.5 gm/DL 12.0-16.0 N HEMATOCRIT (test code = HCT) 43.9 % 34.7-43.3 H MEAN CELL VOLUME (test code = 90.9 fL 81-99 N MCV) MEAN CELL HGB (test code = MCH) 30.0 pg 27-31 N MEAN CELL HGB CONCETRATION (test 33.0 gm/dL 33-37 N code = MCHC) RED CELL DISTRIBUTION WIDTH (test 12.9 % 11.5-14.5 N code = RDW) PLATELET COUNT (test code = PLT) 326 X10(3) 130-400 N MEAN PLATELET VOLUME (test code = 9.5 fL 9.4-12.4 N MPV) NEUTROPHIL % (test code = NT%) 61.7 % 51.5-79.7 N IMMATURE GRANULOCYTE % (test code 0.200 % 0.108-0.322 N = IG%) LYMPHOCYTE % (test code = LY%) 32.3 % 14-40 N MONOCYTE % (test code = MO%) 5.0 % 4.0-10.2 N EOSINOPHIL % (test code = EO%) 0.6 % 0-4.1 N BASOPHIL % (test code = BA%) 0.2 % 0.1-0.7 N NUCLEATED RBC % (test code = 0 % 0-0 N NRBC%) NEUTROPHIL # (test code = NT#) 5.2 K/mm3 2.5-8.6 N IMMATURE GRANULOCYTE # (test code 0.020 K/mm3 0.0052-0.0224 N = IG#) LYMPHOCYTE # (test code = LY#) 2.7 K/mm3 1.1-3.6 N MONOCYTE # (test code = MO#) 0.4 K/mm3 0.3-0.9 N EOSINOPHIL # (test code = EO#) 0.05 # 0.0-0.4 N BASOPHIL # (test code = BA#) 0.02 K/mm3 0.0-0.2 N NUCLEATED RBC # (test code = 0.00 K/mm3 0.00-0.20 N NRBC#) - XR NECK SOFT [id number] 12:32:00 FAX: Latahsa Corado [phone] Camps: ER St: REG FAX: Beto Montgomery MD FAX: Bentley Chamorro MD [phone] Name: MARCE BOWER [facility] : 1985 Age/S: 33/F [address] [facility] Unit #: [id number] Loc: [place], [place] [address] Phys: Beto Puri MD Acct: [id number] Dis Date: Status: REG ER PHONE #: [phone] Exam Date: 04/17/2019 1212 FAX #: [phone] Reason: PAIN EXAMS: CPT CODE: [id number] XR NECK SOFT TISSUE 72048 - XR NECK SOFT TISSUE PROVIDED REASON FOR EXAM: PAIN Comparison: None available. FINDINGS: Lung apices are clear. Prevertebralsoft tissues are unremarkable. Facets are well aligned.. No acute fracture or subluxation. Regional soft tissues are unremarkable. IMPRESSION: No acute process. Location: V20 at 1232 Reported and signed by: DEANDRE ROJAS MD CC: Latasha Corado REGIONAL LOSS PREVENTION MANAGER; Beto Puri MD; Bentley Arnett MD Technologist: DEE MILLER, RT(R) ARRT Transcribed Date/Time/By: 04/17/2019 (1232) :[email or web address] Orig Print D/T: S: 04/17/2019 (0399) Automated exposure control, iterative reconstruction technique, and/oradjustment of mA and/or kV according to patient's size was utilizedfor optimum radiation dose reduction. PAGE 1 Signed ReportUR HCG [id number] 05:51:00 Test Item Value Reference Range Interpretation Comments UR HCG QUAL (test code = HCGQLU) NEGATIVE UPG RESULT: NEGATIVEPERFORMED BY: SMHCG LOT # : [id number] EXPIRATION DATE: 07/22/20HCG PROCEDURAL CONTROL VERIFIED KIT LOT # [id number]. DATE 07/22/20COMPREHENSIVE METABOLIC [id number] 04:54:00 Test Item Value Reference Range Interpretation Comments SODIUM (test code = 137 mmol/L 136-145 N NA) POTASSIUM (test code 3.9 mmol/L 3.5-5.1 N = K) CHLORIDE (test code = 109 mmol/L 98-107 H CL) CARBON DIOXIDE (test 21 mmol/L 21-32 N code = CO2) GLUCOSE (test code = 94 mg/dL 65-99 N GLU) BLOOD UREA NITROGEN 15 mg/dL 7-18 N (test code = BUN) GLOMERULAR FILTRATION 89 Report ing units: RATE (test code = ml/min/1.7 3m\\S\\2 GFR) (Modified MDRD Formula)If age < 18 years, GFR is n ot applicable. KD/ DOQI Clinical Practi ce Guidelines: Sta ge 1: Kidney damage w /normal or increased GF R >90Stage 2: Kid crispin damage w/mild d ecrease in GFR 60 - 89Stage 3: Mode rate decrease in GFR 30 - 59Stage 4: Vaishali re decrease in GFR 15 - 29Stage 5: Kidn ey failure < 15 (or darren lysis) CREATININE (test code 0.8 mg/dL 0.6-1.0 N = CREAT) TOTAL PROTEIN (test 7.5 g/dL 6.4-8.2 N code = PROT) ALBUMIN (test code = 3.6 g/dL 3.4-5.0 N ALB) GLOBULIN (test code = 3.9 gm/dL 2.3-3.5 H GLOB) ALBUMIN/GLOBULIN 0.9 1.5-2.2 L RATIO (test code = A/G) CALCIUM (test code = 8.5 mg/dL 7.8-10.9 N CA) BILIRUBIN TOTAL (test 0.3 mg/dL 0.0-1.1 N code = BILT) SGOT/AST (test code = 10 U/L 15-37 L Report ing units: AST) International U nits/L SGPT/ALT (test code = 25 U/L 10-30 N Report ing units: ALT) International U nits/L ALKALINE PHOSPHATASE 97 U/L 45-117 N TOTAL (test code = ALKP) COMPREHENSIVE METABOLIC [id number] 04:48:00 Test Item Value Reference Range Interpretation Comments SODIUM (test code = NA) 137 mmol/L 136-145 N POTASSIUM (test code = K) 3.9 mmol/L 3.5-5.1 N CHLORIDE (test code = CL) 109 mmol/L 98-107 H CARBON DIOXIDE (test code = CO2) 21 mmol/L 21-32 N GLUCOSE (test code = GLU) mg/dL 65-99 BLOOD UREA NITROGEN (test code = mg/dL 7-18 BUN) GLOMERULAR FILTRATION RATE (test code = GFR) CREATININE (test code = CREAT) mg/dL 0.6-1.0 TOTAL PROTEIN (test code = PROT) g/dL 6.4-8.2 ALBUMIN (test code = ALB) 3.6 g/dL 3.4-5.0 N GLOBULIN (test code = GLOB) gm/dL 2.3-3.5 ALBUMIN/GLOBULIN RATIO (test code 1.5-2.2 = A/G) CALCIUM (test code = CA) 8.5 mg/dL 7.8-10.9 N BILIRUBIN TOTAL (test code = BILT) mg/dL 0.0-1.1 SGOT/AST (test code = AST) U/L 15-37 SGPT/ALT (test code = ALT) U/L 10-30 ALKALINE PHOSPHATASE TOTAL (test U/L 45-117 code = ALKP) - XR CHEST 2 [id number] 04:44:00 FAX: Eric Arnett MD [phone] Cam[place]: [place] St: REG Name: MARCE BOWER [facility] : 1985 Age/S: 33/F [address] Unit #: [id number] Loc: [place] [address] Phys: Eric Arnett MD Acct: [id number] Dis Date: Status: REG ER PHONE #: [phone] Exam Date: 03/28/2019 0425 FAX #: [phone] Reason: cp EXAMS: CPT CODE: [id number] XR CHEST 2 V 98059 HISTORY: Chest pain. Location: C3 COMPARISON:None FINDINGS: 2 views of the chest are provided. Heart size and vascularity are within normal limits. The lungs are clear of focal consolidation. No effusion, pneumothorax, or acute osseous abnormality. IMPRESSION: 1. No focal consolidation. No other acute abnormalities. at 0444 Reported and signed by: JV GUIDO M.D. CC: Eric Arnett MD Technologist: DEE MILLER RT(R) ARRT Transcribed Date/Time/By: 03/28/2019 (0444) :[email or web address] Orig Print D/T: S: 03/28/2019 (0447) Automated exposure control, iterative reconstruction technique, and/oradjustment of mA and/or kV according to patient's size was utilizedfor optimum radiation dose reduction. PAGE 1 Signed ReportCBC W/AUTO [id number] 04:33:00 Test Item Value Reference Range Interpretation Comments WHITE BLOOD CELL (test code = 12.5 K/mm3 4.8-10.8 H WBC) RED BLOOD CELL (test code = RBC) 4.32 M/mm3 4.2-5.4 N HEMOGLOBIN (test code = HGB) 13.2 gm/DL 12.0-16.0 N HEMATOCRIT (test code = HCT) 40.0 % 34.7-43.3 N MEAN CELL VOLUME (test code = 92.6 fL 81-99 N MCV) MEAN CELL HGB (test code = MCH) 30.6 pg 27-31 N MEAN CELL HGB CONCETRATION (test 33.0 gm/dL 33-37 N code = MCHC) RED CELL DISTRIBUTION WIDTH (test 13.2 % 11.5-14.5 N code = RDW) PLATELET COUNT (test code = PLT) 263 X10(3) 130-400 N MEAN PLATELET VOLUME (test code = 9.8 fL 9.4-12.4 N MPV) NEUTROPHIL % (test code = NT%) 68.5 % 51.5-79.7 N IMMATURE GRANULOCYTE % (test code 0.300 % 0.108-0.322 N = IG%) LYMPHOCYTE % (test code = LY%) 24.5 % 14-40 N MONOCYTE % (test code = MO%) 5.4 % 4.0-10.2 N EOSINOPHIL % (test code = EO%) 1.0 % 0-4.1 N BASOPHIL % (test code = BA%) 0.3 % 0.1-0.7 N NUCLEATED RBC % (test code = 0 % 0-0 N NRBC%) NEUTROPHIL # (test code = NT#) 8.6 K/mm3 2.5-8.6 N IMMATURE GRANULOCYTE # (test code 0.040 K/mm3 0.0052-0.0224 H = IG#) LYMPHOCYTE # (test code = LY#) 3.1 K/mm3 1.1-3.6 N MONOCYTE # (test code = MO#) 0.7 K/mm3 0.3-0.9 N EOSINOPHIL # (test code = EO#) 0.13 # 0.0-0.4 N BASOPHIL # (test code = BA#) 0.04 K/mm3 0.0-0.2 N NUCLEATED RBC # (test code = 0.00 K/mm3 0.00-0.20 N NRBC#) TROPONIN I [id number] 04:19:00 Test Item Value Reference Range Interpretation Comments TROPONIN I RAPID 0.00 NG/ML 0.00-0.08 N 0.00 - 0.08 (test code = Normal0.09 - 0. 40 TROPIRAP) Indeterminate f or AMI 0.41 and above Compatible with AMI HEPATIC FUNCTION [id number] 00:40:00 Test Item Value Reference Range Interpretation Comments TOTAL PROTEIN (test 7.5 g/dL 6.4-8.2 N code = PROT) ALBUMIN (test code = 3.6 g/dL 3.4-5.0 N ALB) GLOBULIN (test code = 3.9 gm/dL 2.3-3.5 H GLOB) ALBUMIN/GLOBULIN 0.9 1.5-2.2 L RATIO (test code = A/G) BILIRUBIN TOTAL (test 0.4 mg/dL 0.0-1.1 N code = BILT) BILIRUBIN DIRECT <0.1 mg/dL 0.05-0.3 N (test code = BILD) BILIRUBIN INDIRECT 0.3 mg/dL 0.0-0.6 N (test code = BILIND) SGOT/AST (test code = 14 U/L 15-37 L Report ing units: AST) International U nits/L SGPT/ALT (test code = 24 U/L 10-30 N Report ing units: ALT) International U nits/L ALKALINE PHOSPHATASE 86 U/L 45-117 N TOTAL (test code = ALKP) [id number] 00:40:00 Test Item Value Reference Range Interpretation Comments LIPASE (test code = 76 U/L 73-393 N Reportin g units: LIP) International U nits/L URINALYSIS W/O [id number] 00:39:00 Test Item Value Reference Range Interpretation Comments UA COLOR (test code = COLU) YELLOW YELLOW UA APPEARANCE (test code = SLIGHTLY HAZY CLEAR APPU) UA GLUCOSE DIPSTICK (test code NEGATIVE NEGATIVE = DGLUU) UA BILIRUBIN DIPSTICK (test NEGATIVE NEGATIVE code = BILU) UA KETONE DIPSTICK (test code = SMALL NEGATIVE A KETU) UA SPECIFIC GRAVITY (test code <= 1.005 1.000-1.030 N = SGU) UA BLOOD DIPSTICK (test code = NEGATIVE NEGATIVE SHAUNA) UA PH DIPSTICK (test code = 6.0 5.0-8.5 N TREVON) UA PROTEIN DIPSTICK (test code NEGATIVE NEGATIVE = PROU) UA UROBILINIOGEN DIPSTICK (test 0.2 EU/DL <=1.0 EU/DL code = URO) UA NITRITE DIPSTICK (test code NEGATIVE NEGATIVE = MONSTER) UA LEUKOCYTE ESTERASE DIPSTICK NEGATIVE NEGATIVE (test code = LEUU) SOURCE: URINESPECIMEN DESCRIPTION: [facility]MC[facility] [id number] 00:39:00 Test Item Value Reference Range Interpretation Comments UA WBC (test code = WBCU) 0-2 0-5 UA RBC (test code = RBCU) 0-2 0-5 UA BACTERIA (test code = BACU) 2+ NONE SEEN UA SQUAMOUS CELLS (test code = SQU) 3-5 #/lpf NONE SEEN SOURCE: URINESPECIMEN DESCRIPTION: [facility] [place] ABDOMEN [id number] 00:34:00 [place]: [facility] St: REG Name: MARCE BOWER [facility] : 1985 Age/S: 33/F [address] [id number] Loc: [place], [place] [address] Phys: Desiree Rodriguez MD Acct: [id number] Dis Date: Status: [facility] ER PHONE #: [phone] Exam Date: 02/26/2019 0013 FAX #: [phone] Reason: abdominal pain EXAMS: CPT CODE: [id number] ABDOMEN LTD 11512 HISTORY: Pain COMPARISON: None FINDINGS: The gallbladder is normal appearance with no cholelithiasis. No significant gallbladder wall thickening or pericholecystic fluid. The common bile duct is within normal limits measuring 3 mm. The liver is homogeneous in appearance with no focal liver lesion identified. Doppler interrogation of the portal vein demonstrates normalflow. The visualized right kidney demonstrates no significant abnormalities. The pancrease is partially obscured without significant abnormality. IMPRESSION: 1. No gallstones demonstrated. No biliary dilatation. at 0034 Reported and signed by: JV GUIDO M.D. Facility ACR Accreditation for Ultrasound - September 2011 CC: Desiree Rodriguez MD Technologist: PACHECO ZAMBRANO RT(R)(CT)RDMS(RVT) Transcribed Date/Time/By: 02/27/2019 (0034) : By: [email or web address] Orig Print D/T: S: 02/27/2019 (0037) PAGE 1 Signed ReportURINALYSIS W/O MICRO 2019-02-27 00:32:00 Test Item Value Reference Range Interpretation Comments UA COLOR (test code = COLU) YELLOW YELLOW UA APPEARANCE (test code = SLIGHTLY HAZY CLEAR APPU) UA GLUCOSE DIPSTICK (test code NEGATIVE NEGATIVE = DGLUU) UA BILIRUBIN DIPSTICK (test NEGATIVE NEGATIVE code = BILU) UA KETONE DIPSTICK (test code = SMALL NEGATIVE A KETU) UA SPECIFIC GRAVITY (test code <= 1.005 1.000-1.030 N = SGU) UA BLOOD DIPSTICK (test code = NEGATIVE NEGATIVE SHAUNA) UA PH DIPSTICK (test code = 6.0 5.0-8.5 N TREVON) UA PROTEIN DIPSTICK (test code NEGATIVE NEGATIVE = PROU) UA UROBILINIOGEN DIPSTICK (test 0.2 EU/DL <=1.0 EU/DL code = URO) UA NITRITE DIPSTICK (test code NEGATIVE NEGATIVE = MONSTER) UA LEUKOCYTE ESTERASE DIPSTICK NEGATIVE NEGATIVE (test code = LEUU) SOURCE: URINESPECIMEN DESCRIPTION: [facility] [id number] 00:32:00 Test Item Value Reference Range Interpretation Comments UA WBC (test code = WBCU) 0-5 UA RBC (test code = RBCU) 0-5 SOURCE: URINESPECIMEN DESCRIPTION: CMCURINALYSIS W/O [id number] 00:32:00 Test Item Value Reference Range Interpretation Comments UA COLOR (test code = COLU) YELLOW YELLOW UA APPEARANCE (test code = SLIGHTLY HAZY CLEAR APPU) UA GLUCOSE DIPSTICK (test code NEGATIVE NEGATIVE = DGLUU) UA BILIRUBIN DIPSTICK (test NEGATIVE NEGATIVE code = BILU) UA KETONE DIPSTICK (test code = SMALL NEGATIVE A KETU) UA SPECIFIC GRAVITY (test code <= 1.005 1.000-1.030 N = SGU) UA BLOOD DIPSTICK (test code = NEGATIVE NEGATIVE SHAUNA) UA PH DIPSTICK (test code = 6.0 5.0-8.5 N TREVON) UA PROTEIN DIPSTICK (test code NEGATIVE NEGATIVE = PROU) UA UROBILINIOGEN DIPSTICK (test 0.2 EU/DL <=1.0 EU/DL code = URO) UA NITRITE DIPSTICK (test code NEGATIVE NEGATIVE = MONSTER) UA LEUKOCYTE ESTERASE DIPSTICK NEGATIVE NEGATIVE (test code = LEUU) SOURCE: URINESPECIMEN DESCRIPTION: [facility] [id number] 00:32:00 Test Item Value Reference Range Interpretation Comments UA WBC (test code = WBCU) 0-5 UA RBC (test code = RBCU) 0-5 SOURCE: [facility]PEC[facility]EN [facility] [id number] 00:18:00 Test Item Value Reference Range Interpretation Comments WHITE BLOOD CELL (test code = 10.7 K/mm3 4.8-10.8 N WBC) RED BLOOD CELL (test code = RBC) 4.60 M/mm3 4.2-5.4 N HEMOGLOBIN (test code = HGB) 13.9 gm/DL 12.0-16.0 N HEMATOCRIT (test code = HCT) 41.3 % 34.7-43.3 N MEAN CELL VOLUME (test code = 89.8 fL 81-99 N MCV) MEAN CELL HGB (test code = MCH) 30.2 pg 27-31 N MEAN CELL HGB CONCETRATION (test 33.7 gm/dL 33-37 N code = MCHC) RED CELL DISTRIBUTION WIDTH (test 13.2 % 11.5-14.5 N code = RDW) PLATELET COUNT (test code = PLT) 305 X10(3) 130-400 N MEAN PLATELET VOLUME (test code = 9.8 fL 9.4-12.4 N MPV) NEUTROPHIL % (test code = NT%) 69.4 % 51.5-79.7 N IMMATURE GRANULOCYTE % (test code 0.500 % 0.108-0.322 H = IG%) LYMPHOCYTE % (test code = LY%) 25.3 % 14-40 N MONOCYTE % (test code = MO%) 4.4 % 4.0-10.2 N EOSINOPHIL % (test code = EO%) 0.2 % 0-4.1 N BASOPHIL % (test code = BA%) 0.2 % 0.1-0.7 N NUCLEATED RBC % (test code = 0 % 0-0 N NRBC%) NEUTROPHIL # (test code = NT#) 7.4 K/mm3 2.5-8.6 N IMMATURE GRANULOCYTE # (test code 0.050 K/mm3 0.0052-0.0224 H = IG#) LYMPHOCYTE # (test code = LY#) 2.7 K/mm3 1.1-3.6 N MONOCYTE # (test code = MO#) 0.5 K/mm3 0.3-0.9 N EOSINOPHIL # (test code = EO#) 0.02 # 0.0-0.4 N BASOPHIL # (test code = BA#) 0.02 K/mm3 0.0-0.2 N NUCLEATED RBC # (test code = 0.00 K/mm3 0.00-0.20 N NRBC#) CHEMISTRY 8 [id number] 23:59:00 Test Item Value Reference Range Interpretation Comments IONIZED CALCIUM (test code = 1.09 mmol/L 1.13-1.32 L CAIABG) ISTAT-TCO2 VENOUS (test code = 21 MMOL/L 24-30 L TCO2VP) ISTAT-HEMOGLOBIN (test code = 14.6 G/DL 12.0-16.0 N HBP) ISTAT-HEMATOCRIT (test code = 43 % 44.0-56.0 L HCTP) ISTAT-SODIUM (test code = NAP) 140 MMOL/L 136-145 N ISTAT-POTASSIUM (test code = KP) 3.6 MMOL/L 3.5-5.1 N ISTAT-CHLORIDE (test code = CLP) 107 MMOL/L 98-107 N ISTAT GLUCOSE (test code = GLUP) 96 MG/DL 65-99 N ISTAT-BUN (test code = BUNP) 9 MG/DL 7-18 N BEDSIDE CREATININE (test code = 0.8 MG/DL 0.6-1.0 N CREATBED) URINALYSIS W/O [id number] 06:54:00 Test Item Value Reference Range Interpretation Comments UA COLOR (test code = COLU) YELLOW YELLOW UA APPEARANCE (test code = APPU) CLEAR CLEAR UA GLUCOSE DIPSTICK (test code = NEGATIVE NEGATIVE DGLUU) UA BILIRUBIN DIPSTICK (test code = NEGATIVE NEGATIVE BILU) UA KETONE DIPSTICK (test code = NEGATIVE NEGATIVE KETU) UA SPECIFIC GRAVITY (test code = <= 1.005 1.000-1.030 N SGU) UA BLOOD DIPSTICK (test code = SHAUNA) NEGATIVE NEGATIVE UA PH DIPSTICK (test code = TREVON) 6.0 5.0-8.5 N UA PROTEIN DIPSTICK (test code = NEGATIVE NEGATIVE PROU) UA UROBILINIOGEN DIPSTICK (test 0.2 EU/DL <=1.0 EU/DL code = URO) UA NITRITE DIPSTICK (test code = NEGATIVE NEGATIVE MONSTER) UA LEUKOCYTE ESTERASE DIPSTICK NEGATIVE NEGATIVE (test code = LEUU) SOURCE: URINESPECIMEN DESCRIPTION: [employer] SystemsUDS PROCEDURAL CONTROL VERIFIED? YKIT LOT # [id number]. DATE DRUGS OF ABUSE SCREEN [id number] 06:54:00 Test Item Value Reference Range Interpretation Comments URN TRICYCLICS (test Negative NEGATIVE code = TRICYCURN) URN COCAINE (test Positive NEGATIVE A THE code = COCAURN) PROFILE-II/V ERDICT-II DRUGS OF ABUSE TEST PROVIDES ONLYA PRELIMINARY PINKY LYTICAL TEST RESULT. A MORE SPECIFICALTERNA TE CHEMICAL METHOD MUST BE USED IN ORDER T O OBTAIN ACONFIRMED ANAL YTICAL RESULT. URN CANNABINOIDS Negative NEGATIVE (test code = CANNABURN) URN AMPHETAMINE (test Negative NEGATIVE code = AMPHETURN) URN BARBITURATE (test Negative NEGATIVE code = BARBITURN) URN BENZODIAZEPINE Positive NEGATIVE A THE (test code = PROFILE-II/VERD ICT-II BENZOURN) DRUGS OF ABUSE TEST PROVIDES ONLYA PRELIMINARY PINKY LYTICAL TEST RESULT. A MORE SPECIFICALTERNA TE CHEMICAL METHOD MUST BE USED IN ORDER T O OBTAIN ACONFIRMED ANAL YTICAL RESULT. URN OPIATES (test Negative NEGATIVE code = OPIATURN) URN PHENCYCLIDINE Negative NEGATIVE (PCP) (test code = PHENCURN) URN METHADONE (test Negative NEGATIVE code = METHAURN) SOURCE: URINESPECIMEN DESCRIPTION: [employer] Systems[employer]DS PROCEDURAL CONTROL VERIFIED? YKIT LOT # [id number]. DATE URINALYSIS W/O [id number] 06:51:00 Test Item Value Reference Range Interpretation Comments UA COLOR (test code = COLU) YELLOW YELLOW UA APPEARANCE (test code = APPU) CLEAR CLEAR UA GLUCOSE DIPSTICK (test code = NEGATIVE NEGATIVE DGLUU) UA BILIRUBIN DIPSTICK (test code = NEGATIVE NEGATIVE BILU) UA KETONE DIPSTICK (test code = NEGATIVE NEGATIVE KETU) UA SPECIFIC GRAVITY (test code = <= 1.005 1.000-1.030 N SGU) UA BLOOD DIPSTICK (test code = SHAUNA) NEGATIVE NEGATIVE UA PH DIPSTICK (test code = TREVON) 6.0 5.0-8.5 N UA PROTEIN DIPSTICK (test code = NEGATIVE NEGATIVE PROU) UA UROBILINIOGEN DIPSTICK (test 0.2 EU/DL <=1.0 EU/DL code = URO) UA NITRITE DIPSTICK (test code = NEGATIVE NEGATIVE MONSTER) UA LEUKOCYTE ESTERASE DIPSTICK NEGATIVE NEGATIVE (test code = LEUU) SOURCE: URINESPECIMEN DESCRIPTION: CMCDRUGS OF ABUSE SCREEN [id number] 06:51:00 Test Item Value Reference Range Interpretation Comments URN TRICYCLICS (test code = TRICYCURN) NEGATIVE URN COCAINE (test code = COCAURN) NEGATIVE URN CANNABINOIDS (test code = NEGATIVE CANNABURN) URN AMPHETAMINE (test code = AMPHETURN) NEGATIVE URN BARBITURATE (test code = BARBITURN) NEGATIVE URN BENZODIAZEPINE (test code = NEGATIVE BENZOURN) URN OPIATES (test code = OPIATURN) NEGATIVE URN PHENCYCLIDINE (PCP) (test code = NEGATIVE PHENCURN) URN METHADONE (test code = METHAURN) NEGATIVE SOURCE: URINESPECIMEN DESCRIPTION: CMCUR HCG [id number] 06:43:00 Test Item Value Reference Range Interpretation Comments UR HCG QUAL (test code = HCGQLU) NEGATIVE UPG RESULT: NEGATIVEPERFORMED BY: MLMHCG LOT # : [id number] EXPIRATION DATE: 02/20/20HCG PROCEDURAL CONTROL VERIFIED YKIT LOT # [id number]. DATE 02/20/20CBC W/AUTO [id number] 05:46:00 Test Item Value Reference Range Interpretation Comments WHITE BLOOD CELL (test code = 7.9 K/mm3 4.8-10.8 N WBC) RED BLOOD CELL (test code = RBC) 4.58 M/mm3 4.2-5.4 N HEMOGLOBIN (test code = HGB) 13.7 gm/DL 12.0-16.0 N HEMATOCRIT (test code = HCT) 42.7 % 34.7-43.3 N MEAN CELL VOLUME (test code = 93.2 fL 81-99 N MCV) MEAN CELL HGB (test code = MCH) 29.9 pg 27-31 N MEAN CELL HGB CONCETRATION (test 32.1 gm/dL 33-37 L code = MCHC) RED CELL DISTRIBUTION WIDTH (test 14.6 % 11.5-14.5 H code = RDW) PLATELET COUNT (test code = PLT) 368 X10(3) 130-400 N MEAN PLATELET VOLUME (test code = 9.0 fL 9.4-12.4 L MPV) NEUTROPHIL % (test code = NT%) 41.0 % 51.5-79.7 L IMMATURE GRANULOCYTE % (test code 0.300 % 0.108-0.322 N = IG%) LYMPHOCYTE % (test code = LY%) 49.4 % 14-40 H MONOCYTE % (test code = MO%) 7.4 % 4.0-10.2 N EOSINOPHIL % (test code = EO%) 1.5 % 0-4.1 N BASOPHIL % (test code = BA%) 0.4 % 0.1-0.7 N NUCLEATED RBC % (test code = 0 % 0-0 N NRBC%) NEUTROPHIL # (test code = NT#) 3.3 K/mm3 2.5-8.6 N IMMATURE GRANULOCYTE # (test code 0.020 K/mm3 0.0052-0.0224 N = IG#) LYMPHOCYTE # (test code = LY#) 3.9 K/mm3 1.1-3.6 H MONOCYTE # (test code = MO#) 0.6 K/mm3 0.3-0.9 N EOSINOPHIL # (test code = EO#) 0.12 # 0.0-0.4 N BASOPHIL # (test code = BA#) 0.03 K/mm3 0.0-0.2 N NUCLEATED RBC # (test code = 0.00 K/mm3 0.00-0.20 N NRBC#) BASIC METABOLIC [id number] 05:15:00 Test Item Value Reference Range Interpretation Comments SODIUM (test code = 141 mmol/L 136-145 N NA) POTASSIUM (test code = 4.0 mmol/L 3.5-5.1 N K) CHLORIDE (test code = 110 mmol/L 98-107 H CL) CARBON DIOXIDE (test 23 mmol/L 21-32 N code = CO2) GLUCOSE (test code = 73 mg/dL 65-99 N GLU) BLOOD UREA NITROGEN 6 mg/dL 7-18 L (test code = BUN) GLOMERULAR FILTRATION 89 Report ing units: RATE (test code = GFR) ml/mi n/1.73m\\S\\2 (Modified MDRD Formula)If age < 18 years, GFR is n ot applicable. KD/ DOQI Clinical Practi ce Guidelines: Sta ge 1: Kidney damage w/normal or inc reased GFR >90Stag e 2: Kidney damage w /mild decrease in GFR 60 - 89Stage 3: Moderate decrea se in GFR 30 - 59Stage 4: Severe decrease in GFR 15 - 29Stage 5: Kidney failure < 15 (or dialysis) CREATININE (test code 0.8 mg/dL 0.6-1.0 N = CREAT) CALCIUM (test code = 8.6 mg/dL 7.8-10.9 N CA) BASIC METABOLIC [id number] 05:12:00 Test Item Value Reference Range Interpretation Comments SODIUM (test code = NA) 141 mmol/L 136-145 N POTASSIUM (test code = K) 4.0 mmol/L 3.5-5.1 N CHLORIDE (test code = CL) 110 mmol/L 98-107 H CARBON DIOXIDE (test code = CO2) 23 mmol/L 21-32 N GLUCOSE (test code = GLU) mg/dL 65-99 BLOOD UREA NITROGEN (test code = mg/dL 7-18 BUN) GLOMERULAR FILTRATION RATE (test code = GFR) CREATININE (test code = CREAT) mg/dL 0.6-1.0 CALCIUM (test code = CA) 8.6 mg/dL 7.8-10.9 N HEPATIC FUNCTION [id number] 05:12:00 Test Item Value Reference Range Interpretation Comments TOTAL PROTEIN (test 8.1 g/dL 6.4-8.2 N code = PROT) ALBUMIN (test code = 3.6 g/dL 3.4-5.0 N ALB) GLOBULIN (test code = 4.5 gm/dL 2.3-3.5 H GLOB) ALBUMIN/GLOBULIN 0.8 1.5-2.2 L RATIO (test code = A/G) BILIRUBIN TOTAL (test 0.3 mg/dL 0.0-1.1 N code = BILT) BILIRUBIN DIRECT <0.1 mg/dL 0.05-0.3 N (test code = BILD) BILIRUBIN INDIRECT 0.2 mg/dL 0.0-0.6 N (test code = BILIND) SGOT/AST (test code = 10 U/L 15-37 L Report ing units: AST) International U nits/L SGPT/ALT (test code = 17 U/L 10-30 N Report ing units: ALT) International U nits/L ALKALINE PHOSPHATASE 106 U/L 45-117 N TOTAL (test code = ALKP) [id number] 05:12:00 Test Item Value Reference Range Interpretation Comments ACETAMINOPHEN (test code = ACET) <2 mcg/mL 10-25 L [id number] 05:12:00 Test Item Value Reference Range Interpretation Comments SALICYLATE (test code = TASHA) 3.3 mg/dL 2.8-20.0 N [id number] 05:12:00 Test Item Value Reference Range Interpretation Comments ALCOHOL (test code 72 mg/dL 0-50 H THE PHARM ALOGICAL RESPONSE = ALC) TO BLOOD ALCOHO L LEVELS MAY VARYFROM IN DIVIDUAL TO INDIVIDUAL. THE FATAL CONCENTRATION H ASBEEN REPORTED TO BE GREATER THAN 400 MG/DL. THE PHYSIOLOGICAL A ND PSYCHOLOGICAL E FFECTS OF ETHANOL DONOT N ECESSARILY CORRELATE WITH URINARY CONCENTRATIONS. THEPRESENCE OF ETHANOL IN URINE IS ONLY A N INDICATION OF RECENTINGESTION . DETERMINATIONS ON SERUM, PLASMA, OR WHOL E BLOODARE NEEDED TO ASSES S THE EFFECT. [id number] 11:46:00 RUN DATE: 08/15/18 [facility] LIVE PAGE 1 RUN TIME: 1146 Specimen Inquiry RUN USER: INTERFACE PATIENT: MARCE BOWER LOC: [address] #: [id number] AGE/SX: 32/F ROOM: [facility] RE08/11/18REG DR: Dmitri Contreras MD : 87 BED: 01 DIS: 08/13/18 STATUS: DIS IN TLOC: SPEC #: [id number] RECD: 08/11/18 STATUS: [facility] #: [id number] GABRIELE: 08/11/18-[address] [facility] [address]: Dmitri Contreras MD ENTERED: 08/12/18 SP TYPE: SURGICAL OTHR DR: Jeff Arguello MD, Viji CRNAORDERED: GROSS/MICRO V CODES: [id number] - PLACENTA, NOS COPIES TO: Jeff Arguello MD [facility] [address] [place] [address] Dmitri Contreras MD [address] [place] [address] Tete Pickering WAREHOU[employer]ER [address] [facility] [place] [address] PROCEDURES: GROSS/MICRO V (08/12/18) TISSUES: A. PLACENTA, NOS - PLACENTA AND CORD CLINICAL DIAGNOSIS: Repeat 34 weeks gestation. FINAL DIAGNOSIS SPECIMEN 1 - PLACENTA, PRODUCTS OF DELIVERY: -- THIRD TRIMESTER PLACENTA, WEIGHT 440 GRAMS (WEIGHT WITHIN 10TH - 90TH PERCENTILES FOR STATED EGA OF 34 WEEKS) WITH SMALL INFARCTED AREA INVOLVING <5% OF DISC VOLUME, DEEMED PHYSIOLOGICALLY INSIGNIFICANT. -- THREE VESSEL UMBILICAL CORD WITH NO SIGNIFICANT PATHOLOGIC ABNORMALITY. -- MEMBRANES WITH NO SIGNIFICANT PATHOLOGIC ABNORMALITY. CONTINUED ON NEXT PAGE RUN DATE: 08/15/18 [facility] LIVE PAGE 2 RUN TIME: 1146 Specimen Inquiry RUN USER: INTERFACE SPEC #: [id number] PATIENT: MARCE BOWER #[id number] (Continued) GROSS DESCRIPTION Specimen 1 received in formalin fixative. Container labeled "placenta and cord" on Mckenna. Received is an oval to slightly triangularly shaped placenta with eccentric inserting umbilical cord. The placenta is 19.5 x 18.5 x 2.7 cm and 440 grams. The umbilical cord segment is 36.0 cm in length and averages 1.4 cm in diameter. It has no knots or varix and has small areas of thrombosed vascular component. The membranes are wrinkled, dull, pink to yellow-stephen and slightly thickened and opaque. The maternal surface is lobular, complete and intact. Cross sections through the parenchyma reveal a spongy red-brown cut surface. There is a 1.8 cm pale yellow infarct, 6.0cm from the umbilical cord insertion. There are no masses or other focal lesions identified. Car Restorer sections are submitted as follows: 1A - account manager sales representative sections of the umbilical cord. 1B - membranres. 1C-1D - full thickness sections of the chorionic plate. 1E - account manager sales representative section of the infarcted area. RPE five blocks 1A - 1E. MICROSCOPIC DESCRIPTION Microscopic examination of all glass slides. Signed SIGNATURE ON FILE Foreign Drake Madhuri 08/15/18 1146 END OF REPORT
--- OUTSIDE RECORDS SUMMARY | 2020-05-30 20:22 | XMS REPORT | Summary of Care ---
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 Performing Organization Address City/State/Zipcode Phone Number BLD LAB Type and Screen - ONCE Routine (05/11/2020 5:24 PM CDT) Pathologist Sig nature ABO & RH O NEGATIVE LAB Comment: Performed at [facility] Laboratory Services - [facility] Blood [place] [address] Toll Free: [phone] CLIA No. [id number] IAT Positive LAB Comment: Performed at [facility] Laboratory Services - [facility] Blood [place] [address] Toll Free: [phone] CLIA No. [id number] Specimen Blood - VENOUS Performing Organization Address [facility] Phone Number [facility] COVID-19 (ID NOW RAPID TESTING) (05/11/2020 4:05 PM CDT) SARS-CoV-2 Rapid ID Not Detected Not Detected [facility] NOW SERVICES Specimen Swab - NASOPHARYNGEAL SWAB Narrative Performed At ID NOW COVID-19 Assay is an isothermal nucleic acid [facility] amplification test intended for the qualitative detect ion of nucleic acid from SARS-CoV-2 viral RNA in nasopharynge al (STATION JAILER) specimens. It is used under Emergency Use Authori zation (EUA) by FDA. The limit of detection (LOD) of the assa y is 125 Genome Equivalents/mL. A positive result is indicative of the presence of SARS-CoV-2 RNA. Clinical correlation with patient hi story and other diagnostic information is necessary to deter mine patient infection status. A negative (Not Detected) result does not preclude SARS-CoV-2 infection. In patients with clinical sympto ms and other tests that are consistent with SARS-CoV-2 infect ion, negative results should be treated as presumptive nega tive and a new specimen should be tested with alternative P CR molecular test. Invalid: Please collect a new specimen for repeat amie ent testing if clinically indicated. 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, antepartum condition 37 weeks gestation of state, incidental Delivery of by sectio n documented in this encounter Administered Medications Medication Order MAR Action Action Date Dose Rate Site cetirizine (ZYRTEC) tablet 10 mg Given 05/13/2020 9:47 AM CDT 10 mg 10 mg, Oral, DAILY, First dose on 05/12/20 at 0900, Until Discontinued, Routine Given 05/12/2020 8:09 AM CDT 10 mg diphenhydrAMINE (BENADRYL) tablet 25 mg Given 05/12/2020 4:38 AM CDT 25 mg 25 mg, Oral, Q6HPRN, Starting 05/11/20 at 2305, Until Discontinued, Routine, Sleep, Itching docusate calcium (SURFAK) capsule 240 mg Given 05/13/2020 4:05 AM CDT 240 mg 240 mg, Oral, QDAILYPRN, Starting 05/11/20 at 2305, Until Discontinued, Routine, Constipation Given 05/12/2020 8:09 AM CDT 240 mg HYDROcodone-acetaminophen (NORCO 5) 5-32 5 mg tablet 1 tablet 1 tablet, Oral, Q6HPRN, Starting Sat 04/23 05/12 at 2305, Until Discontinued, Routine, Pain (scale 4-6) HYDROcodone-acetaminophen (NORCO 5) 5-325 Given 2019 9:47 AM CDT 2 tablets mg tablet 2 tablet 2 tablet, Oral, Q6HPRN, Starting 05/11/20 at 2305, Until Discontinued, Routine, Pain (scale 7-10) Given 05/13/2020 4:05 AM CDT 2 tablets Given 05/12/2020 10:31 PM CDT 2 tablets ibuprofen (IBU) tablet 600 mg Given 05/13/2020 6:19 AM CDT 600 mg 600 mg, Oral, Q6HPRN, Starting 05/11/20 at 2305, Until Discontinued, Routine, Pain (scale 1-3) Given 05/13/2020 12:45 AM CDT 600 mg Given 05/12/2020 3:55 PM CDT 600 mg naloxone (NARCAN) injection 0.4 mg 0.4 mg, Slow IV Push, PRN - SEE INSTRUCT IONS, Starting 05/11/20 at 2105, Until 05/13/20 at 1814, Routine, Analgesia Recovery simethicone (GAS RELIEF (SIMETHICONE)) Given 05/13/2020 9:47 AM CDT 160 mg chewable tablet 160 mg 160 mg, Oral, PC+HSPRN, Starting 05/11/20 at 2305, Until Discontinued, Routine, Gas Given 05/13/2020 4:05 AM CDT 160 mg Given 05/12/2020 10:32 PM CDT 160 mg Medication Order MAR Action Action Date Dose Rate Site acetaminophen (TYLENOL) tablet Given 05/11/2020 6:00 PM CDT 650 mg 650 mg 650 mg, Oral, ONCE, 1 dose, 05/11/20 at 1715, Routine acetaminophen ADULT (OFIRMEV) injection Given 05/11/2020 10:45 P M CDT 1,000 mg 1,000 mg 1,000 mg, IV Infusion, Administer over 15 Minutes, ONCE, 1 dose, 05/11/20 at 2245, Routine, Indication: Perioperative Patient ceFAZolin in dextrose (iso-os) (ANCEF) 2 Given 05/11/2020 8:02 PM CDT 2 g gram/100 mL Piggyback 2 g 2 g (2,000 mg), IV Piggyback, O.R. 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, Duration of therapy: within 24 hours of surgery Given 05/12/2020 12:00 PM CDT 2 g Given 05/12/2020 4:18 AM CDT 2 g diphenhydrAMINE (BENADRYL) injection 25 mg Given 05/11/2020 10:15 PM CDT 25 mg 25 mg, Slow IV Push, Q4HPRN, Starting 05/11/20 at 2105, Until 05/12/20 at 1855, Routine, Itching ketorolac (TORADOL) injection 30 mg Given 05/11/2020 10:15 PM CDT 30 mg 30 mg, Slow IV Push, PRN, 1 dose, Starting 05/11/20 at 2105, Until 05/11/20 at 2215, Routine, Pain (scale 7-10), manufacturing team member approving Restricted medication: MEL GALLAGHER lactated ringers IV infusion New Bag 05/11/2020 5:35 PM CDT 1,000 mL 125 mL/hr 1,000 mL at 125 mL/hr, 1,000 mL, IV Infusion, CONTINUOUS, Starting 05/11/20 at 1715, Until 05/11/20 at 2305, Routine lactated ringers IV infusion 500 New Bag 05/11/2020 5:35 PM C DT 500 mL 999 mL/hr mL at 999 mL/hr, 500 mL, IV Infusion, ONCE, 1 dose, 05/11/20 at 1715, Routine LR 1000 mL + oxytocin 20 units IV Given 05/11/2020 11:20 PM CDT 125 mL/hr Solution at 125 mL/hr, IV Infusion, ONCE, 1 dose, 05/11/20 at 2315, JHONATHAN rho(D) immune globulin (RHOGAM) Given 05/12/2020 4:58 PM CDT 30 0 mcg Left Arm syringe 300 mcg 300 mcg, Intramuscular, ONCE, 1 dose, 05/11/20 at 2330, Routine sodium citrate-citric acid (BICITRA) 500-334 Given 8:02 PM CDT 30 mL mg/5 mL solution 30 mL 30 mL, Oral, PRE-PROCEDURE ONCE, 1 dose, Starting 05/11/20 at 1711, Until 05/11/20 at 2002, Routine, Surgery/Procedure documented in this encounter Additional Health Concerns Infection Onset Date Last Indicated Resolved Time COVID-19 Rule Out 05/11/2020 05/11/2020 05/11/2020 4: 33 PM CDT documented as of this encounter Insurance Payer Benefit Plan / Subscriber ID Effective Dates Phone Addre ss Type Group SUPERIOR SUPERIOR STAR [id number] 2016-Manohar INIGUEZ , Medicaid [place] [phone] MANAGED MEDICAID documented as of this encounter
--- OUTSIDE RECORDS SUMMARY | 2020-05-30 20:23 | XMS REPORT | Summary of Care ---
:1985 Author Organization [facility] Address [address] [place] [address] Care Team Providers Name Role Phone Maureen Palacios MD Primary Care Provider Reason for Visit Reason Comments Refill Request Encounter Details Date Type Department Care Team Description 05/21/2020 Refill [facility] Women's Kavitha Curtis PA-C Refill Request Healthcare- [place] [address] [facility] 146 [facility] [address] [place] [address] [place] [address] [phone] Allergies Active Allergy Reactions Severity Noted Date Comments Codeine Anaphylaxis 11/23/2019 Iodine Nausea and/or Vomiting, Rash 11/23/2019 Latex Anaphylaxis 11/23/2019 documented as of this encounter (statuses as of 05/27/2020) Medications Medication Sig Dispensed Refills Start End Date Status Date fluticasone Inhale. 0 Active propion/salmeterol (ADVAIR DISKUS INHALE) albuterol 90 Inhale 2 Puffs 8.5 g 1 Ac tive mcg/actuation every 6 (six) 0 inhalerIndications: hours as needed Mild intermittent for Wheezing, asthma without Shortness of complication Breath, Bronchospasm or Chest tightness. diethyltoluamide Apply 1 [place] to 113 g 1 Active (OFF DEEP ANDRES DRY) area(s) as 0 25 % needed ([place] AerPIndications: EXPOSURE). Supervision of with history of pre-term labor in second trimester vitamin Take 1 tablet by 100 tablet [...] daily as S/P section needed for Constipation. CETIRIZINE 10 mg TAKE 1 TABLET BY 30 tablet 1 Active tabletIndications: MOUTH EVERY DAY 0 Mild intermittent asthma without complication CETIRIZINE 10 mg TAKE 1 TABLET BY 30 tablet 1 Discontinued tabletIndications: MOUTH EVERY DAY 0 20 Mild intermittent asthma without complication documented as of this encounter (statuses as of 05/27/2020) Active Problems Problem Noted Date 37 weeks [...] as of this encounter (statuses as of 05/27/2020) Resolved Problems Problem Noted Date Resolved Date Uterine size-date discrepancy in second trimester 02/15/2020 04/01/2020 Nausea and vomiting during prior to 22 weeks 11/2204/01/2020 gestation documented as of this encounter (statuses as of 05/27/2020) Immunizations Name Administration Dates Next Due HPV9 [...] of this encounter Last Filed Vital Signs Not on filedocumented in this encounter Plan of Treatment Date Type Specialty Care Team Description 06/03/2020 Routine Obstetrics & Palacios, Maureen Cabral MD Visit Gynecology [address] [place] [address] DR. Machado [place] [address] [phone] Health Maintenance Due Date Last Done Comments VARICELLA VACCINES (1 of 2 - 2-dose childhood series) 1988 PNEUMOCOCCAL 0-64 YEARS COMBINED SERIES (1 of 1 - 1993 PPSV23) Depression Screening 1999 PAP SMEAR 2008 INFLUENZA VACCINE (#1) 2020 DTaP,Tdap,and Td Vaccines (2 - Td) 03/15/2030 03/15/2020 documented as of this encounter Results Not on filedocumented in this encounter Visit Diagnoses Diagnosis Mild intermittent asthma without complic ation Unspecified asthma documented in this encounter Insurance Payer Benefit Plan / Subscriber ID Effective Dates Phone Addre ss Type Group SUPERIOR SUPERIOR STAR [id number] [facility] [place] , [place] [phone] MANAGED MEDICAID documented as of this encounter
--- OUTSIDE RECORDS SUMMARY | 2020-05-30 20:23 | XMS REPORT | Summary of Care ---
:1985 Author Organization [facility] Address [address] [place] [address] Care Team Providers Name Role Phone Maureen Palacios MD Primary Care Provider Reason for Visit Reason Comments Assessment Possible Infection Encounter Details Date Type Department Care Team Description 05/29/2020 Telephone [facility] Women's Maureen Palacios MD Assessment (Possible Healthcare- [address] Infection) [address] [place] [address] [address]. Bush, [address] [facility] 208 [place], [place] [address] [phone] Allergies Active Allergy Reactions Severity Noted Date Comments Codeine Anaphylaxis 11/23/2019 Iodine Nausea and/or Vomiting, Rash 11/23/2019 Latex Anaphylaxis 11/23/2019 documented as of this encounter (statuses as of 05/29/2020) Medications Medication Sig Dispensed Refills Start Date End Date Status fluticasone Inhale. 0 Active propion/salmeterol (ADVAIR DISKUS INHALE) albuterol 90 Inhale 2 Puffs 8.5 g 1 11/23/2019 A ctive mcg/actuation every 6 (six) inhalerIndications: hours as needed Mild intermittent for Wheezing, asthma without Shortness of complication Breath, Bronchospasm or Chest tightness. diethyltoluamide (OFF Apply 1 [place] to 113 g 1 12/21/2019 Active DEEP ANDRES DRY) 25 % area(s) as needed AerPIndications: ([place] Supervision of EXPOSURE). with history of pre-term labor in second trimester vitamin w/FA Take 1 tablet by 100 tablet 3 05/13/2020 Active tabletIndications: S/P mouth daily. section ferrous sulfate 325 mg Take 1 tablet by 60 tablet 2 05/13/2020 Active (65 mg iron) mouth 2 (two) tabletIndications: S/P times daily. section ibuprofen 600 mg Take 1 tablet by 60 tablet 1 05/13/2020 Active tabletIndications: S/P mouth every 6 section (six) hours as needed (Pain). Take with food or milk. Docusate Sodium (DOK) Take 1 tablet by 60 tablet 1 05/13/2020 Active 100 mg mouth 2 (two) tabletIndications: S/P times daily as section needed for Constipation. CETIRIZINE 10 mg TAKE 1 TABLET BY 30 tablet 1 05/27/2020 Active tabletIndications: MOUTH EVERY DAY Mild intermittent asthma without complication documented as of this encounter (statuses as of 05/29/2020) Active Problems Problem Noted Date 37 weeks [...] as of this encounter (statuses as of 05/29/2020) Resolved Problems Problem Noted Date Resolved Date Uterine size-date discrepancy in second trimester 02/15/2020 04/01/2020 Nausea and vomiting during prior to 22 weeks 11/2204/01/2020 gestation documented as of this encounter (statuses as of 05/29/2020) Immunizations Name Administration Dates Next Due HPV9 [...] Signs Not on filedocumented in this encounter Miscellaneous Notes Telephone Encounter - Leonel Atkins - 05/29/2020 9:07 AM CDTAfter discussing the patient symptoms with Dr. Palacios I called the patient back to instruct her to go to the ER for evaluation. Due to her pain scale, fever, and no visible signs of infection, she needs to be evaluated where diagnostic imaging is available. Patient verbalized her understanding. In office appointment canceled. Leonel Atkins 05/29/2020 9:08 AM documented in this encounter Plan of Treatment Date Type Specialty Care Team Description 06/03/2020 Routine Obstetrics & Maureen Palacios MD Visit Gynecology [address] [place] [address] DR. Machado [place] [address] 15 [phone] Health Maintenance Due Date Last Done Comments VARICELLA VACCINES (1 of 2 - 2-dose childhood series) 1988 PNEUMOCOCCAL 0-64 YEARS COMBINED SERIES (1 of 1 - 1993 PPSV23) Depression Screening 1999 PAP SMEAR 2008 INFLUENZA VACCINE (#1) 2020 DTaP,Tdap,and Td Vaccines (2 - Td) 03/15/2030 03/15/2020 documented as of this encounter Results Not on filedocumented in this encounter Insurance Payer Benefit Plan / Subscriber ID Effective Dates Phone Addre ss Type Group SUPERIOR SUPERIOR STAR [id number] 2016-Manohar [place] , [place] [phone] MANAGED MEDICAID documented as of this encounter
--- OUTSIDE RECORDS SUMMARY | 2020-05-30 20:23 | XMS REPORT | Summary of Care ---
:1985 Author Organization [facility] Address [address] [place] [address] Care Team Providers Name Role Phone Maureen Palacios MD Primary Care Provider Reason for Visit Reason Comments Assessment Encounter Details Date Type Department Care Team Description 05/29/2020 Telephone [facility] Women's Maureen Palacios MD Assessment Healthcare- [address] [place] [address] [place] [address] [place] [address] [phone] Allergies Active Allergy Reactions Severity Noted Date [...] or Chest tightness. diethyltoluamide (OFF Apply 1 [place] to 113 g 1 12/21/2019 Active DEEP [...] Telephone Encounter - Leonel Atkins - 05/29/2020 8:58 AM CDTPatient delivered in [place] by C Section 05/11/20 Has not had PP wound check Patient c/o possible wound infection. Patient states she had fever of 102 with chills and possible signs of infection yesterday and she isc/o incisional pain of 10/10, however the incision is closed and does not appear to be infected per patient. Patient states she was COVID tested last week and was negative. Appointment given for Physician evaluation TODAY Patient verbalized her understanding. elephone Encounter - Theresa Nicholson - 05/29/2020 8:46 AM CDTPatient is calling and is requesting to speak to the nurse, patient is 2 wks PP and is having severe pain, chills and blood around wound is brown, patient stated pain feels like she is having contractions, call has been transferred to clinic for traige documented in this encounter Plan of Treatment Date Type Specialty Care Team Description 05/29/2020 Routine Obstetrics & Maureen Palacios MD Visit Gynecology [address] [place] [address] [address]. Finney [address] [place] [address] [phone] 06/03/2020 Routine Obstetrics & PalaciosMaureen MD Visit Gynecology [address] [place] [address] [address]. Finney [address] [place] [address] 15 [phone] Health Maintenance Due Date Last Done Comments [...] Addre ss Type Group SUPERIOR SUPERIOR STAR [id number] 2016-Manohar [place] , [place] [phone] MANAGED MEDICAID documented as of this encounter
== END 2020-05-29 14:09 | disposition home or self-care (01) ==
LOC: ER 11:14
DX: R10.2 Pelvic and perineal pain (principal); F17.210 Nicotine dependence, cigarettes, uncomplicated; Z88.5 Allergy status to narcotic agent; Z91.040 Latex allergy status; Z91.048 Other nonmedicinal substance allergy status
CPT/HCPCS: 85025; 80048; 36415; 80076; 84702; 83690; 74177; 96375; 96374; 99283; Q9967; J1200; J3010; J2930; J2405

== ENCOUNTER 2020-06-17 09:10 | Emergency (ER) | payer OTHER ==
--- NOTE | 2020-06-17 09:48 | ER ---
Nurse's Notes [facility] Name: Bethany Duarte Age: 34 yrs Sex: Female : 1985 Arrival Date: 06/17/2020 Time: 09:13 Bed 16 Private MD: Diagnosis: mood disturbance;Bipolar disorder Presentation: 06/17 09:28 Chief complaint: Patient states: POST- DEPRESSION, DELIVERY ON 05/11. -SI/HI. bp Coronavirus screen: At this time, the client does not indicate any symptoms associated with coronavirus-19. Ebola Screen: No symptoms or risks identified at this time. Initial Sepsis Screen: Does the patient meet any 2 criteria? No. Patient's initial sepsis screen is negative. Does the patient have a suspected source of infection? No. Patient's initial sepsis screen is negative. Risk Assessment: Do you want to hurt yourself or someone else? Patient reports no desire to harm self or others. Onset of symptoms is unknown. 09:28 Method Of Arrival: Ambulatory bp 09:28 Acuity: SHERLYN 4 bp Triage Assessment: 09:30 General: Appears distressed, comfortable, obese, Behavior is cooperative, appropriate bp for age, anxious, crying. Pain: Denies pain. EENT: No deficits noted. Neuro: Level of Consciousness is awake, alert, obeys commands, Oriented to person, place, time, situation, Appropriate for age. Cardiovascular: No deficits noted. Respiratory: No deficits noted. GI: No signs and/or symptoms were reported involving the gastrointestinal system. : No signs and/or symptoms were reported regarding the genitourinary system. Derm: No deficits noted. Musculoskeletal: No deficits noted. 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 - Social history:: Smoking status: Patient denies any tobacco usage or history of. Screenin:30 Abuse screen: Denies threats or abuse. Denies injuries from another. Nutritional bp screening: No deficits noted. Tuberculosis screening: No symptoms or risk factors identified. Fall Risk None identified. Assessment: 09:30 General: SEE TRIAGE NOTE. bp Vital Signs: 09:28 BP 113 / 84; Pulse 98; Resp 16; Temp 98; Pulse Ox 98% ; Weight 77.11 kg; Height 5 ft. 2 bp in. (157.48 cm); 09:28 Body Mass Index 31.09 (77.11 kg, 157.48 cm) bp ED Course: 09:13 Patient arrived in ED. ag5 09:18 Lev Terry, RN is Primary Nurse. bp 09:19 David Henriquez PA is PHCP. jr8 09:19 Garo Aguilera MD is Attending Physician. jr8 09:30 Patient has correct armband on for positive identification. Bed in low position. Call bp light in reach. Side rails up X2. 09:31 Triage completed. bp 09:32 Arm band placed on. bp 09:46 Chi Laura MD is Referral Physician. jr8 10:18 No provider procedures requiring assistance completed. Patient did not have IV access iw during this emergency room visit. Administered Medications: No medications were administered Outcome: 09:47 Discharge ordered by . jr8 10:18 Discharged to home ambulatory. iw 10:18 Condition: good 10:18 Discharge instructions given to patient, Instructed on discharge instructions, follow up and referral plans. medication usage, Demonstrated understanding of instructions, follow-up care, medications, Prescriptions given X 2. 10:18 Patient left the ED. iw Signatures: Nichol Correa RN WALLACE David Henriquez PA PA rust Lev Terry, RN RN Loan Chish[place]m ag5
--- NOTE | 2020-06-17 09:48 | EDPHYS ---
Physician Documentation [facility] Name: Bethany Duarte Age: 34 yrs Sex: Female : 1985 Arrival Date: 06/17/2020 Time: 09:13 Bed 16 Private MD: Garo Cadet HPI: 06/17 09:50 This 34 yrs old Female presents to ER via Ambulatory with complaints of jr8 Depression. 09:50 Onset: The symptoms/episode began/occurred gradually, 2 week(s) ago. Associated signs jr8 and symptoms: The patient has no apparent associated signs or symptoms. Modifying factors: The patient symptoms are alleviated by nothing, the patient symptoms are aggravated by nothing. The patient has not experienced similar symptoms in the past. The patient has not recently seen a physician. Patient with history of bipolar disorder. Currently off of her medication and has been for several months as she was and had recent delivery about one month ago. Stated that over the past couple of weeks has been very sad and crying uncontrollably. Has been getting into more arguments as well. Stated that she needs to be back on her medications and has no f/u around this area. No breast feeding per patient . [employer]: 09:32 LMP N/A - Recent bp Historical: - Allergies: 09:32 Codeine; bp 09:32 Iodine; bp 09:32 Latex, Natural Rubber; bp - Home Meds: 09:32 Zoloft Oral [Active]; Seroquel Oral [Active]; Trazodone Oral [Active]; bp - PMHx: 09:32 Bipolar disorder; bp - Immunization history:: Adult Immunizations up to date. - Social history:: Smoking status: Patient denies any tobacco usage or history of. ROS: 09:50 Eyes: Negative for injury, pain, redness, and discharge, ENT: Negative for injury, jr8 pain, and discharge, Neck: Negative for injury, pain, and swelling, Cardiovascular: Negative for chest pain, palpitations, and edema, Respiratory: Negative for shortness of breath, cough, wheezing, and pleuritic chest pain, Abdomen/GI: Negative for abdominal pain, nausea, vomiting, diarrhea, and constipation, Back: Negative for injury and pain, MS/Extremity: Negative for injury and deformity, Skin: Negative for injury, rash, and discoloration, Neuro: Negative for headache, weakness, numbness, tingling, and seizure. 09:50 Psych: Positive for depression, insomnia, Negative for suicide gesture, suicidal ideation. Exam: 09:50 Eyes: Pupils equal round and reactive to light, extra-ocular motions intact. Lids and jr8 lashes normal. Conjunctiva and sclera are non-icteric and not injected. Cornea within normal limits. Periorbital areas with no swelling, redness, or edema. ENT: Nares patent. No nasal discharge, no septal abnormalities noted. Tympanic membranes are normal and external auditory canals are clear. Oropharynx with no redness, swelling, or masses, exudates, or evidence of obstruction, uvula midline. Mucous membranes moist. Neck: Trachea midline, no thyromegaly or masses palpated, and no cervical lymphadenopathy. Supple, full range of motion without nuchal rigidity, or vertebral point tenderness. No Meningismus. Cardiovascular: Regular rate and rhythm with a normal S1 and S2. No gallops, murmurs, or rubs. Normal PMI, no JVD. No pulse deficits. Respiratory: Lungs have equal breath sounds bilaterally, clear to auscultation and percussion. No rales, rhonchi or wheezes noted. No increased work of breathing, no retractions or nasal flaring. Abdomen/GI: Soft, non-tender, with normal bowel sounds. No distension or tympany. No guarding or rebound. No evidence of tenderness throughout. Back: No spinal tenderness. No costovertebral tenderness. Full range of motion. Skin: Warm, dry with normal turgor. Normal color with no rashes, no lesions, and no evidence of cellulitis. MS/ Extremity: Pulses equal, no cyanosis. Neurovascular intact. Full, normal range of motion. Neuro: Awake and alert, GCS 15, oriented to person, place, time, and situation. Cranial nerves II-XII grossly intact. Motor strength 5/5 in all extremities. Sensory grossly intact. Cerebellar exam normal. Normal gait. 09:50 Psych: Behavior/mood is cooperative, depressed, Affect is calm, Oriented to person, place, time, Patient has no thoughts/intents to harm self or others. Judgement / Insight is normal. Memory is normal. Delusions/hallucinations are not present. Vital Signs: 09:28 BP 113 / 84; Pulse 98; Resp 16; Temp 98; Pulse Ox 98% ; Weight 77.11 kg; Height 5 ft. 2 bp in. (157.48 cm); 09:28 Body Mass Index 31.09 (77.11 kg, 157.48 cm) bp MDM: 09:19 Patient medically screened. jr8 09:50 Data reviewed: vital signs, nurses notes. Data interpreted: Pulse oximetry: on room air jr8 is 98 %. Interpretation: normal. Counseling: I had a detailed discussion with the patient and/or guardian regarding: the historical points, exam findings, and any diagnostic results supporting the discharge/admit diagnosis, the need for outpatient follow up, a psychiatrist, to return to the emergency department if symptoms worsen or persist or if there are any questions or concerns that arise at home. ED course: Will start patient back on Zoloft and Klonopin. Will hold her Seroquel and trazodone for now as it makes her too sleepy at night time and wont be able to get up with child to feed him. Will also have her f/u with psych today as well on outpatient basis and inpatient is not indicated at this time. Patient and good with this plan . Administered Medications: No medications were administered Disposition: 15:55 Co-signature as Attending Physician, Garo Aguilera MD I agree with the assessment and kate plan of care. Disposition: 06/17/20 09:47 Discharged to Home. Impression: mood disturbance, Bipolar disorder. - Condition is Stable. - Discharge Instructions: Bipolar Disorder, Depression and Baby Blues. - Prescriptions for Klonopin 0.5 mg Oral Tablet - take 1 tablet by ORAL route every 12 hours As needed; 20 tablet. Zoloft 50 mg Oral Tablet - take 1 tablet by ORAL route once daily for 7 days then increase to 100mg once daily; 30 tablet. - Medication Reconciliation Form, Thank You Letter, Antibiotic Education, Prescription Opioid Use form. - Follow up: Chi Laura MD; When: Today; Reason: Recheck today's complaints, Continuance of care, Re-evaluation by your physician. - Problem is new. - Symptoms have improved. Signatures: Garo Aguilera MD MD cha Williams, Irene, RN RN David Henriquez PA PA jr8 Lev Terry RN RN bp Corrections: (The following items were deleted from the chart) 10:18 09:47 06/17/2020 09:47 Discharged to Home. Impression: mood disturbance; iw Bipolar disorder. Condition is Stable. Prescriptions for Klonopin 0.5 mg Oral Tablet - take 1 tablet by ORAL route every 12 hours As needed; 20 tablet, Zoloft 50 mg Oral Tablet - take 1 tablet by ORAL route once daily; 30 tablet. and Forms are Medication Reconciliation Form, Thank You Letter, Antibiotic Education, Prescription Opioid Use. Follow up: Chi Laura; When: Today; Reason: Recheck today's complaints, Continuance of care, Re-evaluation by your physician. Problem is new. Symptoms have improved. jr8
--- OUTSIDE RECORDS SUMMARY | 2020-06-17 10:14 | XMS REPORT | Continuity of Care Document ---
:1985 Author Organization [facility] t Address [address] [place] [address] Care Team Providers Name Role Phone Maureen [...] Type Date Date Clinician phenylep DA [facility] 04[facility]17 [place] 00:[facility]: [address] iodine [facility] [place] 00:00: [address] codeine DA Active [facility] 8 [place] 00:00: [address] chlorphe DA Active [facility] niramine 04-17 [place] 00:00: [address] latex [facility] 04-17 [place] 00:00: [address] phenylep DA Active [facility] hrine 806 [place] HCl 00:00: [address] iodine DA [facility] 8 [place] 00:00: [address] codeine DA Active [facility] 8-06 [place] 00:00: [address] [facility] chlorphe DA Active [facility] niramine 8-06 [place] 00:00: [facility] latex DA [facility] 8-06 [place] 00:00: [address] phenylep DA Active [facility] hrine 6-11 [place] HCl 00:00: [address] iodine DA [facility] 611 [place] 00:00: [facility] codeine DA Active [facility] 6-11 [place] 00:00: [facility] chlorphe DA Active [facility] niramine 6-11 [place] 00:00: [address] latex [facility] 611 [place] 00:00: [address] Medications This patient has no known medications. Procedures This patient has no known procedures. Encounters Start End Encounter Admission Attending Care Care Encounter Source Date/Time Date/Time Type Type Clinicians Facility Department ID 2020-06-07 2020-06-07 Telephone Maureen Palacios [facility] [id number] 00:00:00 00:00:00 [place] [id number] [place] 4.2.7.2.686 Professio [phone] [address] 2020-05-29 2020-05-29 Telephone Maureen Palacios [facility] 1.2.840.114 [id number] 00:00:00 00:00:00 [place] 350.1.13.10 [place] 4.2.7.2.686 Professio [phone] [address] 2020-05-29 2020-05-29 Telephone Maureen Palacios [facility] 1.2.840.114 [id number] 00:00:00 00:00:00 [place] 350.1.13.10 [place] 4.2.7.2.686 Professio [phone] [address] 2020-05-21 2020-05-21 [facility] [id number] 00:00:00 00:00:00 Sarah Beth [place] 350.1.13.10 [place] 4.2.7.2.686 Professio [phone] [address] 2020-05-11 2020-05-13 Hospital [facility] 1.2.840.114 [id number] 15:48:00 11:55:00 Encounter Tifafny RUSSELL 350.1.13.10 [facility] 4.2.7.2.686 [id number] 2020-05-10 2020-05-10 Telephone Maureen Palacios [place] 1.2.840.114 [id number] 00:00:00 00:00:00 [place] 350.1.13.10 [place] 4.2.7.2.686 Professio [phone] [address] 2020-05-10 2020-05-10 Telephone Maureen Palacios [place] 1.2.840.114 [id number] 00:00:00 00:00:00 [place] 350.1.13.10 [place] 4.2.7.2.686 Professio [phone] [address] 2020-05-08 2020-05-08 Telephone Maureen Palacios [place] 1.2.840.114 [id number] 00:00:00 00:00:00 [place] 350.1.13.10 [place] 4.2.7.2.686 Professio [phone] [address] 2020-05-06 2020-05-06 Routine Maureen Palacios [place] [id number] 14:51:16 16:17:56 [place] 350.1.13.10 Visit [place] 4.2.7.2.686 Professio [phone] [address] Results Test Description Test Time Test [...] URINESPECIMEN DESCRIPTION: CMCIndication for culture: Suprapubic PainUA [id number] 03:35:00 Test Item Value Reference Range Interpretation Comments UA RBC (test code = RBCU) 6-10 0-5 UA EPITHELIAL CELLS (test code = EPIU) 6-10 0-10 UA MUCUS (test code = MUCU) OCC NONE-FEW SOURCE: URINESPECIMEN DESCRIPTION: CMCIndication for culture: Suprapubic PainUA RFLX MICR CULT IF [id number] 03:35:00 Test Item Value Reference Range Interpretation [...] URINESPECIMEN DESCRIPTION: CMCIndication for culture: Suprapubic PainUA [id number] 03:35:00 Test Item Value Reference Range Interpretation Comments UA RBC (test code = RBCU) 6-10 0-5 UA EPITHELIAL CELLS (test code = EPIU) 6-10 0-10 UA MUCUS (test code = MUCU) OCC NONE-FEW SOURCE: URINESPECIMEN DESCRIPTION: CMCIndication for culture: Suprapubic PainUA RFLX MICR CULT IF [id number] 03:34:00 Test Item Value Reference Range Interpretation [...] URINESPECIMEN DESCRIPTION: CMCIndication for culture: Suprapubic PainUA [id number] 03:34:00 Test Item Value Reference Range Interpretation Comments UA RBC (test code = RBCU) 0-5 SOURCE: URINESPECIMEN DESCRIPTION: CMCIndication for culture: Suprapubic PainHCG [id number] 02:15:00 Test Item Value Reference Range Interpretation Comments HCG SERUM (test 316382 mIU/mL <5 Reporting U nits: code = [...] 11,500 - 289,00 012-16 weeks 18,300 - 137,86845-10 we eks 1,400 - 53,000(2nd Trimester)29-41 weeks 940 - 60,000(3r d Trimester) - US ABDOMEN [id number] 02:06:00 [place]: [facility] St: REG Name: MARCE BOWER [facility] : 1985 Age/S: 34/F [address] [facility] Unit #: [id number] Loc: [place], [place] [address] Phys: Desiree Rodriguez MD Acct: [id number] Dis Date: Status: REG ER PHONE #: [phone] Exam Date: 10/17/2019114 FAX #: [phone] Reason: upper abd pain and tenderness EXAMS: CPT CODE: [id number] US ABDOMEN LTD 70831Kmgkix ultrasound. History: First trimester . Vaginal bleeding. [...] are normal. PAGE 1 Signed Report (CONTINUED) [place]: [facility]: REG Name: SATHISHMARCE [facility] : 1985 Age/S: 34/F [address] [facility] Unit #: [id number] Loc: [place], [place] [address] Phys: Desiree Rodriguez MD Acct: [id number] Dis Date: Status: REG ER PHONE #: [phone] Exam Date: 10/17/2019 0115 FAX #: [phone] Reason: upper abdpain and tenderness EXAMS: CPT CODE: [id number] US ABDOMEN LTD 76493 <Continued> Impression: No sonographic evidence of cholelithiasis [...] By: [email or web address] Orig Print D/T: S: 10/17/2019 (0207) PAGE 2 Signed Report- US PREG 1ST [id number] 02:06:00 [place]: [facility] St: REG Name: MARCE BOWER [facility] : 1985 Age/S: 34/F [address] [facility] Unit #: [id number] Loc: [place], [place] [address] Phys: Desiree Rodriguez MD Acct: [id number] Dis Date: Status: REG ER PHONE #: [phone] Exam Date: 10/17/2019 0115 FAX #: [phone] Reason: pelvic pain EXAMS: CPT CODE: [id number] US PREG 1ST TRIMTR 51790Hgboue ultrasound. History: First trimester . Vaginal bleeding. [...] are normal. PAGE 1 Signed Report (CONTINUED) [place]: [facility]: REG Name: MARCE BOWER [facility] : 1985 Age/S: 34/F [address] [facility] Unit #: [id number] [facility] [place] [place] [address] Phys: Desiree Rodriguez MD Acct: [id number] Dis Date: Status: REG ER PHONE #: [phone] Exam Date: 10/17/2019 0115 FAX #: [phone] Reason: pelvic pain EXAMS: CPT CODE: [id number] US PREG 1ST TRIMTR 11642 <Continued> Impression: No sonographic evidence of cholelithiasis [...] By: [email or web address] Orig Print D/T: S: 10/17/2019 (208) PAGE 2 Signed ReportBASIC METABOLIC [id number] 01:39:00 Test Item Value Reference Range Interpretation [...] 8.4 mg/dL 7.8-10.9 N CA) BASIC METABOLIC [id number] 01:30:00 Test Item Value Reference Range Interpretation [...] CA) 8.4 mg/dL 7.8-10.9 N CBC W/AUTO [id number] 01:10:00 Test Item Value Reference Range Interpretation [...] 0.00 K/mm3 0.00-0.20 N NRBC#) POC LACTIC [id number] 15:26:00 Test Item Value Reference Range Interpretation Comments POC LACTIC ACID (test code = 1.08 MMOL/L 0.40-2.00 N POCLAC) UA RFLX MICR CULT IF [id number] 14:14:00 Test Item Value Reference Range Interpretation [...] for culture: Sev. Sepsis-no other srcHEPATIC FUNCTION [id number] 14:01:00 Test Item Value Reference Range Interpretation [...] 45-117 N TOTAL (test code = ALKP) [id number] 14:01:00 Test Item Value Reference Range Interpretation [...] 0.00-0.05 H PROCAL) - XR CHEST 1 [id number] 13:43:00 FAX: Beto Montgomery MD Camps: ER St: REG FAX: Marcos Mayer FAX: Bentley Chamorro MD [phone] Name: MARCE BOWER [facility] : 1985 Age/S: 33/F [address] [facility] Unit #: [id number] Loc: [place], [place] [address] Phys: Marcos Bonilla Acct: [id number] Dis Date: Status: REG ER PHONE #: [phone] Exam Date: 05/29/2019 1253 FAX #: [phone] Reason: cough EXAMS: CPT CODE: [id number] XR CHEST 1 V 96972 - XR CHEST 1 V PROVIDED REASON [...] DEE MILLER RT(R) ARRT Transcribed Date/Time/By: 05/29/2019 (2291) :[email or web address] Orig Print D/T: S: 05/29/2019 (6060) Automated exposure control, iterative reconstruction technique, and/oradjustment of mA and/or kV according to patient's size was utilizedfor optimum radiation dose reduction. PAGE 1 Signed ReportUA RFLX MICR CULT IF [id number] 13:21:00 Test Item Value Reference Range Interpretation [...] for culture: Sev. Sepsis-no other srcHEPATIC FUNCTION [id number] 13:19:00 Test Item Value Reference Range Interpretation [...] 45-117 N TOTAL (test code = ALKP) [id number] 13:19:00 Test Item Value Reference Range Interpretation [...] code = ng/mL 0.00-0.05 PROCAL) CBC W/AUTO [id number] 13:06:00 Test Item Value Reference Range Interpretation [...] 0.00 K/mm3 0.00-0.20 N NRBC#) CHEMISTRY 8 [id number] 12:48:00 Test Item Value Reference Range Interpretation [...] 0.6 MG/DL 0.6-1.0 N CREATBED) POC LACTIC [id number] 12:43:00 Test Item Value Reference Range Interpretation Comments POC LACTIC ACID 2.86 MMOL/L 0.40-2.00 H RESULTS CALL ED TO [] (test code = POCLAC) AT 1243 05/29/19.NMI-MT CRITICA L VALUE READ BA CK BY NURSE AND VERIF IED BY TECH? []REFEREN CE RANGES FOR: 1) ARTERIAL SAMPLE (0.5-1.6MMOL/L) 2) SPINAL FLUID (0.6-2.2MMOL/L) UR HCG [id number] 23:25:00 Test Item Value Reference Range Interpretation Comments UR HCG QUAL (test code = HCGQLU) NEGATIVE Do not do if urine colorless or bloody CLEARUPG RESULT: NEGATIVEPERFORMED BY: LCHCG LOT # : [id number] EXPIRATION DATE: 10/20/20HCG PROCEDURAL CONTROL VERIFIED KIT LOT # [id number]. DATE 10/20/20- CT ABD PELVIS [id number] 16:29:00 [place]: [facility] St: REG Name: MARCE BOWER [facility] : 1985 Age/S: 33/F [address] Unit #: [id number] Loc: [place], [place] [address] Phys: Beto Puri MD Acct: [id number] Dis Date: Status: REG ER PHONE #: [phone] Exam Date: 04/17/2019 1540 FAX #: [phone] Reason: ABD PAIN, RLQ CTDI: DLP: Automated exposure control, iterative reconstruction technique, and/oradjustment of mAand/or kV according to patient's size was utilized fooptimum radiation dose reduction. EXAMS: CPT CODE: [id number] CT ABD PELVIS W/CONT 15248 - CT ABD PELVIS W/CONT REASON FOR [...] joint; chronic PAGE 1 Signed Report (CONTINUED) [place]: [facility]: REG Name: MARCE BOWER [facility] : 1985 Age/S: 33/F [address] [facility] Unit #: [id number] Loc: [place], [place] [address] Phys: Beto Puri MD Acct: [id number] Dis Date: Status: REG ER PHONE #: [phone] Exam Date: 04/17/2019 1540 FAX #: [phone] Reason: ABD PAIN, RLQ CTDI: DLP: Automated exposure control, iterative reconstruction technique, and/oradjustment of mA and/or kV according to patient's size was utilized fooptimum radiation dose reduction. EXAMS: CPT CODE: [id number] CT ABD PELVIS W/CONT 24433 <Continued> IMPRESSION: No acute process in the abdomen or pelvis. The appendix is normal. Location: V20 at 1629 Reported and signed by:DEANDRE ROJAS MD Facility ACR Accreditation for CT - March 2012 CC: Latasha Corado SANITARY ENGINEER; Beto Puri MD; Bentley Arnett MD Technologist: LILIAN BOWER RT(R) (ARRT) Transcribed Date/Time/By: 04/17/2019 (5109) : By: [email or web address] Orig Print D/T: S: 04/17/2019 (5097) PAGE 2 Signed ReportURINALYSIS W/O [id number] 15:21:00 Test Item Value Reference Range Interpretation [...] code = LEUU) SOURCE: URINESPECIMEN DESCRIPTION: CMCUA [id number] 15:21:00 Test Item Value Reference Range Interpretation Comments UA WBC (test code = WBCU) 2-5 0-5 UA RBC (test code = RBCU) 1-5 0-5 UA BACTERIA (test code = BACU) 1+ NONE SEEN UA SQUAMOUS CELLS (test code = 5-10 #/lpf NONE SEEN SQU) SOURCE: URINESPECIMEN DESCRIPTION: CMCURINALYSIS W/O [id number] 14:48:00 Test Item Value Reference Range Interpretation [...] code = LEUU) SOURCE: URINESPECIMEN DESCRIPTION: CMCUA [id number] 14:48:00 Test Item Value Reference Range Interpretation Comments UA WBC (test code = WBCU) 0-5 UA RBC (test code = RBCU) 0-5 SOURCE: URINESPECIMEN DESCRIPTION: CMCURINALYSIS W/O [id number] 14:48:00 Test Item Value Reference Range Interpretation [...] code = LEUU) SOURCE: URINESPECIMEN DESCRIPTION: CMCUA [id number] 14:48:00 Test Item Value Reference Range Interpretation Comments UA WBC (test code = WBCU) 0-5 UA RBC (test code = RBCU) 0-5 SOURCE: URINESPECIMEN DESCRIPTION: [facility] [id number] 13:28:00 Test Item Value Reference Range Interpretation [...] TOTAL (test code = ALKP) CHEMISTRY 8 [id number] 13:08:00 Test Item Value Reference Range Interpretation [...] 0.7 MG/DL 0.6-1.0 N CREATBED) CBC W/AUTO [id number] 12:37:00 Test Item Value Reference Range Interpretation [...] 0.00-0.20 N NRBC#) - XR NECK SOFT [id number] 12:32:00 FAX: Latasha Corado [phone] Camps: ER St: REG FAX: Beto Montgomery MD FAX: Bentley Chamorro MD [phone] Name: MARCE BOWER [facility] : 1985 Age/S: 33/F [address] [facility] Unit #: [id number] Loc: [place], [place] [address] Phys: Beto Puri MD Acct: [id number] Dis Date: Status: REG ER PHONE #: [phone] Exam Date: 04/17/2019 1212 FAX #: [phone] Reason: PAIN EXAMS: CPT CODE: [id number] XR NECK SOFT TISSUE 58602 - XR NECK SOFT TISSUE PROVIDED REASON FOR EXAM: PAIN Comparison: None available. FINDINGS: Lung apices are clear. Prevertebralsoft tissues are unremarkable. Facets are well aligned.. No acute fracture or subluxation. Regional soft tissues are unremarkable. IMPRESSION: No acute process. Location: V20 at 1232 Reported and signed by: DEANDRE ROJAS MD CC: Latasha Corado SANITARY ENGINEER; Beto Puri MD; Bentley Arnett MD Technologist: DEE MILLER RT(R) ARRT Transcribed Date/Time/By: 04/17/2019 (1232) :[email or web address] Orig Print D/T: S: 04/17/2019 (9690) Automated exposure control, iterative reconstruction technique, and/oradjustment of mA and/or kV according to patient's size was utilizedfor optimum radiation dose reduction. PAGE 1 Signed ReportUR HCG [id number] 05:51:00 Test Item Value Reference Range Interpretation Comments UR HCG QUAL (test code = HCGQLU) NEGATIVE UPG RESULT: NEGATIVEPERFORMED BY: SMHCG LOT # : [id number] EXPIRATION DATE: 07/22/20HCG PROCEDURAL CONTROL VERIFIED KIT LOT # [id number]. DATE 07/22/20COMPREHENSIVE METABOLIC [id number] 04:54:00 Test Item Value Reference Range Interpretation [...] TOTAL (test code = ALKP) COMPREHENSIVE METABOLIC [id number] 04:48:00 Test Item Value Reference Range Interpretation [...] code = ALKP) - XR CHEST 2 [id number] 04:44:00 FAX: Eric Arnett MD [phone] Camps: ER St: REG Name: MARCE BOWER [facility] : 1985 Age/S: 33/F [address] [facility] Unit #: [id number] Loc: [place], [place] [address] Phys: Eric Arnett MD Acct: [id number] Dis Date: Status: REG ER PHONE #: [phone] Exam Date: 03/28/2019 0425 FAX #: [phone] Reason: cp EXAMS: CPT CODE: [id number] XR CHEST 2 V 74463 HISTORY: Chest pain. Location: C3 COMPARISON:None FINDINGS: [...] optimum radiation dose reduction. PAGE 1 Signed ReportC W/AUTO [id number] 04:33:00 Test Item Value Reference Range Interpretation [...] 0.00 K/mm3 0.00-0.20 N NRBC#) TROPONIN I [id number] 04:19:00 Test Item Value Reference Range Interpretation Comments TROPONIN I RAPID 0.00 NG/ML 0.00-0.08 N 0.00 - 0.08 (test code = Normal0.09 - 0. 40 TROPIRAP) Indeterminate f or AMI 0.41 and above Compatible with AMI HEPATIC FUNCTION [id number] 00:40:00 Test Item Value Reference Range Interpretation [...] 45-117 N TOTAL (test code = ALKP) [id number] 00:40:00 Test Item Value Reference Range Interpretation Comments LIPASE (test code = 76 U/L 73-393 N Reportin g units: LIP) International U nits/L URINALYSIS W/O [id number] 00:39:00 Test Item Value Reference Range Interpretation [...] (test code = LEUU) SOURCE: URINESPECIMEN DESCRIPTION: [facility] [id number] 00:39:00 Test Item Value Reference Range Interpretation Comments UA WBC (test code = WBCU) 0-2 0-5 UA RBC (test code = RBCU) 0-2 0-5 UA BACTERIA (test code = BACU) 2+ NONE SEEN UA SQUAMOUS CELLS (test code = SQU) 3-5 #/lpf NONE SEEN SOURCE: URINESPECIMEN DESCRIPTION: [facility] US ABDOMEN [id number] 00:34:00 [place]: [facility] St: REG Name: MARCE BOWER [facility] : 1985 Age/S: 33/F [address] [id number] Loc: [place], [place] [address] Phys: Desiree Rodriguez MD Acct: [id number] Dis Date: Status: REG ER PHONE #: [phone] Exam Date: 02/26/2019 0013 FAX #: [phone] Reason: abdominal pain EXAMS: CPT CODE: [id number] US ABDOMEN LTD 25591 HISTORY: Pain COMPARISON: None FINDINGS: The gallbladder [...] code = LEUU) SOURCE: URINESPECIMEN DESCRIPTION: CMCUA [id number] 00:32:00 Test Item Value Reference Range Interpretation Comments UA WBC (test code = WBCU) 0-5 UA RBC (test code = RBCU) 0-5 SOURCE: URINESPECIMEN DESCRIPTION: CMCURINALYSIS W/O [id number] 00:32:00 Test Item Value Reference Range Interpretation [...] (test code = LEUU) SOURCE: URINESPECIMEN DESCRIPTION: [facility] [id number] 00:32:00 Test Item Value Reference Range Interpretation Comments UA WBC (test code = WBCU) 0-5 UA RBC (test code = RBCU) 0-5 SOURCE: URINESPECIMEN DESCRIPTION: [facility] W/AUTO [id number] 00:18:00 Test Item Value Reference Range Interpretation [...] 0.00 K/mm3 0.00-0.20 N NRBC#) CHEMISTRY 8 [id number] 23:59:00 Test Item Value Reference Range Interpretation [...] 0.8 MG/DL 0.6-1.0 N CREATBED) URINALYSIS W/O [id number] 06:54:00 Test Item Value Reference Range Interpretation [...] (test code = LEUU) SOURCE: URINESPECIMEN DESCRIPTION: [facility] PROCEDURAL CONTROL VERIFIED? YKIT LOT # [id number]. DATE DRUGS OF ABUSE SCREEN [id number] 06:54:00 Test Item Value Reference Range Interpretation [...] NEGATIVE code = [place]) SOURCE: URINESPECIMEN DESCRIPTION: CMCUDS PROCEDURAL CONTROL VERIFIED? YKIT LOT # [id number]. DATE URINALYSIS W/O [id number] 06:51:00 Test Item Value Reference Range Interpretation [...] SOURCE: URINESPECIMEN DESCRIPTION: CMCDRUGS OF ABUSE SCREEN [id number] 06:51:00 Test Item Value Reference Range Interpretation [...] [place]) NEGATIVE SOURCE: URINESPECIMEN DESCRIPTION: CMCUR HCG [id number] 06:43:00 Test Item Value Reference Range Interpretation Comments UR HCG QUAL (test code = HCGQLU) NEGATIVE UPG RESULT: NEGATIVEPERFORMED BY: MLCG LOT # : [id number] EXPIRATION DATE: 02/20/20HCG PROCEDURAL CONTROL VERIFIED YKIT LOT # [id number]. DATE 02/20/20CBC W/AUTO [id number] 05:46:00 Test Item Value Reference Range Interpretation [...] (test code = 0.00 K/mm3 0.00-0.20 N NR#) BASIC METABOLIC [id number] 05:15:00 Test Item Value Reference Range Interpretation [...] 8.6 mg/dL 7.8-10.9 N CA) BASIC METABOLIC [id number] 05:12:00 Test Item Value Reference Range Interpretation [...] CA) 8.6 mg/dL 7.8-10.9 N HEPATIC FUNCTION [id number] 05:12:00 Test Item Value Reference Range Interpretation [...] 45-117 N TOTAL (test code = ALKP) [id number] 05:12:00 Test Item Value Reference Range Interpretation Comments ACETAMINOPHEN (test code = ACET) <2 mcg/mL 10-25 L [id number] 05:12:00 Test Item Value Reference Range Interpretation Comments SALICYLATE (test code = TASHA) 3.3 mg/dL 2.8-20.0 N [id number] 05:12:00 Test Item Value Reference Range Interpretation [...] BLOODARE NEEDED TO ASSES S THE EFFECT. [id number] 11:46:00 RUN DATE: 08/15/18 [facility] LAB LIVE PAGE 1 RUN TIME: 1146 Specimen Inquiry RUN USER: INTERFACE PATIENT: MARCE BOWER LOC: [facility] U #: [id number] AGE/SX: 32/F ROOM: [facility] RE08/11/18REG DR: Dmitri Contreras MD : 89 BED: 01 DIS: 08/13/18 STATUS: DIS IN TLOC: SPEC #: [id number] RECD: 08/11/18 STATUS: RAMON REQ #: [id number] GABRIELE: 08/11/18-1230 [facility] [address]: Dmitri Contreras MD ENTERED: 08/12/18-0752 SP TYPE: SURGICAL OTHR DR: Jeff Arguello MD, Viji CRNAORDERED: GROSS/MICRO V CODES: [id number] - PLACENTA, NOS COPIES TO: Jeff Arguello MD Lissett Mancilla [address] [place] [address] Dmitri Contreras MD [address] [address] Tete Pickering PATIENT CLERICAL ASSISTANT [address] [facility] [place] [address] PROCEDURES: GROSS/MICRO V (08/12/18-751) TISSUES: A. PLACENTA, NOS - PLACENTA AND [...] CONTINUED ON NEXT PAGE RUN DATE: 08/15/18 [facility] LIVE PAGE 2 RUN TIME: 1146 Specimen Inquiry RUN USER: INTERFACE SPEC #: [id number] PATIENT: MARCE BOWER SUKUMAR #[id number] (Continued) GROSS DESCRIPTION Specimen 1 received in [...] no masses or other focal lesions identified. Anesthesia Assistant sections are submitted as follows: 1A - logistics service representative sections of the umbilical cord. 1B - membranres. 1C-1D - full thickness sections of the chorionic plate. 1E - logistics service representative section of the infarcted area. RPE five blocks 1A - 1E. MICROSCOPIC DESCRIPTION Microscopic examination of all glass slides. Signed SIGNATURE ON FILE Foreign DrakeJonathan 08/15/18 1146 END OF REPORT
--- OUTSIDE RECORDS SUMMARY | 2020-06-17 10:22 | XMS REPORT | Summary of Care ---
:1985 Author Organization [facility] Address [address] [place] [address] Care Team Providers Name Role Phone Maureen Palacios MD Primary Care Provider Reason for Visit Reason Comments Assessment Encounter Details Date Type Department Care Team Description 05/29/2020 Telephone [facility] Women's Maureen Palacios MD Assessment Healthcare- [address]Jonathan [address] [place] [address] [place] [address] [phone] Allergies Active Allergy Reactions Severity Noted Date [...] or Chest tightness. diethyltoluamide (OFF Apply 1 [place] to 113 g 1 12/21/2019 Active DEEP [...] - 05/29/2020 8:58 AM CDTPatient [place] in [place] C Section 05/11/20 Has not had [...] Obstetrics & Maureen Palacios MD Visit Gynecology [address] [place] [address] [address]. [address] [address] 15 [phone] 06/03/2020 Routine Obstetrics & PalaciosMaureen MD Visit Gynecology [address] [place] [address] [address] [address] 15 [phone] Health Maintenance Due Date Last Done Comments [...] Addre ss Type Group SUPERIOR SUPERIOR STAR [id number] 2016-Manohar [place] , [place] [address] MANAGED MEDICAID documented as of this encounter
--- OUTSIDE RECORDS SUMMARY | 2020-06-17 10:22 | XMS REPORT | Summary of Care ---
:1985 Author Organization [facility] Address [address] [place] [address] Care Team Providers Name Role Phone Maureen Palacios MD Primary Care Provider Reason for Visit Reason Comments Assessment Possible Infection Encounter Details Date Type Department Care Team Description 05/29/2020 Telephone [facility] Women's Maureen Palacios MD Assessment (Possible Healthcare- [address] Infection) [address] [place] [address] DR[address] Bush, [address] [facility] [address] [place], [place] [address] [phone] Allergies Active Allergy Reactions Severity Noted Date [...] or Chest tightness. diethyltoluamide (OFF Apply 1 [place] to 113 g 1 12/21/2019 Active DEEP [...] Obstetrics & Maureen Palacios MD Visit Gynecology [address] [place] [address] [address]. Machado [place] [address] [phone] Health Maintenance Due Date Last Done Comments [...] Addre ss Type Group SUPERIOR SUPERIOR STAR [id number] 2016-Manohar F[place]INGTON , [place] [address] MANAGED MEDICAID documented as of this encounter
--- OUTSIDE RECORDS SUMMARY | 2020-06-17 10:22 | XMS REPORT | Summary of Care ---
:1985 Author Organization [facility] Address [address] [place] [address] Care Team Providers Name Role Phone Maureen Palacios MD Primary Care Provider Reason for Referral (Routine) Status Reason Specialty Diagnoses / Referred By Referred To Procedures Contact Contact New Request Diagnoses S/P section Tiffany Berger MD Lam, Vien Cam, MD Procedures DISCHARGE FOLLOW-UP: PRIVATE PHYSICIAN [address] [place] [id number] [place] [address] [address] Phone: [place], [place] [address] Phone: Fax: Reason for Visit Auth/Cert Status Reason Specialty Diagnoses / Referred By Contact Refe rred To Contact Procedures Obstetrics Diagnoses 37 weeks gestation of [address] [address] Phone: Fax: Encounter Details Date Type Department Care Team Description 05/11/2020 - Hospital Encounter Mother Baby Unit Liu Berger ous 05/13/2020 ([facility]) MD Tiffany section [address] [place] [address] [id number] [place] [address] [phone] Allergies Active Allergy Reactions Severity Noted Date [...] Bronchospasm or Chest tightness. diethyltoluamide Apply 1 [place] to 113 g 1 Active (OFF DEEP [...] or Questions Call: OB Clinic Family Planning [phone] or Emergency: Go to the closest emergency room or call 911 AttachmentsThe following attachments cannot be sent through Care Everywhere. , Breast Care After (Gambian), After (Gambian) Depression, Understanding (Gambian)When to Call the Healthcare Provider, After Delivery (Gambian)documented in this encounter Progress Notes Herminia Stevens [...] O negative/IAT negative, GBS negative, PAP NILM ([place], [place] 2019) Postoperative care: - Diet: Advance as tolerated - Fluid: Encourage oral intake - Activity: Encourage ambulation and incentive spirometry - Pain: [place] and Ibuprofen - DVT prophylaxis: SCDs and [...] O negative/IAT negative, GBS negative, Pap NILM ([place], [place] 2019) - H/H, plt: 11.3 / 34.4, 266 on 03/01 Postoperative care: - Diet: Advance as tolerated - Fluid: Encourage oral intake - Activity: Encourage ambulation and incentive spirometry - Pain: [place] and Ibuprofen - DVT prophylaxis: SCDs and [...] before discharge. Tamra Miller MD atabeto Dina, [facility] - 05/12/2020 7:39 AM CDT Advance [...] Encourage ambulation and incentive spirometry - Pain: [place] and Ibuprofen - DVT prophylaxis: SCDs and [...] ANDRES DRY) 25 % AerP Apply 1 [place] to area(s) as needed ([place] EXPOSURE). 113 [...] Age of Onset Diabetes Mother Heart Father VA (myocardial infarction) Father Stroke Father Arthritis NoFHx [...] Value Date/Time GLUF 87 03/05/2020 09:09 AM [id number] 108 (L) 03/05/2020 11:49 AM GLU3H 97 [...] pregnancies, both at 32 weeks - s/p Mcgaffey Abnormal glucose tolerance - 1 hr 152 - 3 hr wnl, [id number] Rh negative - Received Rhogam 10/06 and [...] posterior placenta - EFW: 3162 g by [facility] US 05/03 - FHT reactive and reassuring [...] reast massage and hand expression Handouts given Gambian Genetic Counsellor Observation Pumping Yes using Ameda single use Position right side Football skin to skin Interventions Placed skin to skin;Taught hand expression reviewed pump use Mother demonstrated teach back of Breast massage and hand expression;Proper use of breast pump equipment Follow up Mom will call staff;[facility] warmline;[facility] office Recommended Feeding Plan Recommended feeding plan Frequent isxu-ut-prsc time with parents;Pump/hand express minimum 8 timesin [...] Clinical Trials: none Surgeon: Radha Hua MD Card Cutter Surgeon: Mari Buenrostro MD OB Faculty: Tiffany [...] of fascia was also grsaped with two [facility] her clamps and both blunt and [...] by lateral traction from the surgeon's and congressional assistant's hand. Delivery A bladder flap was developed by grasping with Andorran forcep and enter with Metzenbaun scissor. Then [...] aid of fundal pressure applied by the respiratory care assistant surgeon . Nuchal cord x1 was [...] sent to pathology. Radha Hua MD PGY-2 DEPARTMENT CHAIRPERSON Personal Pager: [phone] 05/11/20 9:35 PM Associated attestation - Tiffany [...] Description 05/17/2020 Nurse Visit Obstetrics & Nurse, [facility] Women's Gynecology Health 05/24/2020 Hospital Encounter Obstetrics Maureen Palacios MD [address] [place] [address] [address] [address] [phone] 05/24/2020 Surgery Surgery Maureen Palacios M D SECTION [address] [place] [address] DR. Finney [address] [place], [place] [address] [phone] 06/03/2020 Routine Obstetrics & Palacios, Maureen Cabral MD Visit Gynecology [address] [place] [address] DR. Finney [address] [place], [place] [address] [phone] Name Type Priority Associated Order Schedule Diagnoses [...] MATERNAL HEMO SCREEN (05/12/2020 4:30 AM CDT) [facility] SCREEN Negative LAB Comment: Performed at [facility] Laboratory Services - [facility] Blood [place] [address] Toll Free: [phone] CLIA No. [id number] RHIG REQUIRED? 1 Syringe LAB Comment: Baby is Rh positive Performed at [facility] Laboratory Services - [facility] Blood [place] [address] Toll Free: [phone] CLIA No. [id number] Specimen Blood - VENOUS Performing Organization Address City/State/Zipcode Phone Number D LAB CBC with Differential (05/12/2020 4:22 AM CDT) [facility] WBC 10.16 4.30 - 11.10 [facility] LABORATORY 10*3/L SERVICES RBC 3.36 (L) 3.93 - 5.25 [facility] LABORATORY 10*6/L SERVICES HGB 10.5 (L) 11.6 - 15.0 [facility] LABORATORY g/dL SERVICES HCT 31.9 (L) 35.7 - 45.2 % [facility] LABORATORY SERVICES MCV 94.9 80.6 - 95.5 fL [facility] LABORATORY SERVICES MCH 31.3 25.9 - 32.8 pg [facility] LABORATORY SERVICES MCHC 32.9 31.6 - 35.1 [facility] LABORATORY g/dL SERVICES RDW-SD 45.5 39.0 - 49.9 fL [facility] LABORATORY SERVICES RDW-CV 13.1 12.0 - 15.5 % [facility] LABORATORY SERVICES PLT 198 166 - 358 [facility] LABORATORY 10*3/L SERVICES MPV 10.1 9.5 - 12.9 fL [facility] LABORATORY SERVICES NRBC/100 WBC 0.0 0.0 - 10.0 /100 [facility] LABORATORY WBCs SERVICES NRBC x10^3 <0.01 10*3/L [...] Blood - ARM, RIGHT Performing Organization Address City/[facility]/Zipcode Phone Number [facility] LABORATORY SERVICES CLIA: [id number] [place] [address] [place] [address] Venous Cord Gas (05/11/2020 9:27 PM CDT) Pathologist Sig nature VENOUS BASE EXCESS, -2.8 mEq/L [facility] LABORATORY CORD SERVICES VENOUS PH, CORD 7.30 7.25 - 7.45 [facility] LABORATORY SERVICES VENOUS PC02, CORD 50 (H) 27 - 49 mmHg [facility] LABORATORY SERVICES VENOUS PO2, CORD 17 17 - 41 mmHg [facility] LABORATORY SERVICES VENOUS BICARBONATE, 24 12 - 29 mEq/L [facility] LABORATORY CORD SERVICES Specimen Blood - CORD Performing Organization Address City/[facility]/Zipcode Phone Number [facility] LABORATORY SERVICES CLIA: [id number] [place] [address] [place] [address] Arterial Cord Gas (05/11/2020 9:27 PM CDT) Pathologist Sig nature BASE EXCESS, CORD -3.6 mEq/L [facility] LABORATORY SERVICES AC PH, CORD (BEAKER) 7.28 7.18 - 7.38 [facility] LABORATORY SERVICES PC02, CORD 53 32 - 66 mmHg [facility] LABORATORY SERVICES PO2, CORD 11 10 - 30 mmHg [facility] LABORATORY SERVICES BICARBONATE, CORD 24 17 - 27 mEq/L [facility] LABORATORY SERVICES Specimen Blood - CORD Performing Organization Address City/State/Zipcode Phone Number [facility] LABORATORY SERVICES CLIA: [id number] [place] [address] [place] [address] CBC with Differential (05/11/2020 5:40 PM CDT) Pathologist Sig nature WBC 10.59 4.30 - 11.10 [facility] 10*3/L SERVICES RBC 4.02 3.93 - 5.25 [facility] LABORATORY 10*6/L SERVICES HGB 12.5 11.6 - 15.0 [facility] g/dL SERVICES HCT 37.3 35.7 - 45.2 % [facility] LABORATORY SERVICES MCV 92.8 80.6 - 95.5 fL [facility] LABORATORY SERVICES MCH 31.1 25.9 - 32.8 pg [facility] LABORATORY SERVICES MCHC 33.5 31.6 - 35.1 [facility] g/dL SERVICES RDW-SD 44.6 39.0 - 49.9 fL [facility] LABORATORY SERVICES RDW-CV 13.2 12.0 - 15.5 % [facility] LABORATORY SERVICES PLT 259 166 - 358 [facility] LABORATORY 10*3/L SERVICES MPV 10.4 9.5 - 12.9 fL [facility] LABORATORY SERVICES NRBC/100 WBC 0.0 0.0 - 10.0 /100 [facility] LABORATORY WBCs SERVICES NRBC x10^3 <0.01 10*3/L [facility]OR[facility] SERVICES GRAN MAT (NEUT) % 71.9 [...] SERVICES EOS x10^3 0.12 0.03 - 0.39 [facility] LABORATORY 10*3/uL SERVICES BASO x10^3 0.03 0.01 - 0.07 [facility] LABORATORY 10*3/uL SERVICES Specimen Blood - VENOUS Performing Organization Address City/[facility]/Zipcode Phone Number [facility] LABORATORY SERVICES CLIA: [id number] [place] [address] [place] [address] GALV ONLY - SYPHILIS IGG/IGM (05/11/2020 5:29 PM CDT) Pathologist [facility] Syphilis IgG/IgM Non-reactive Non-reactive [facility] LABORATORY SERVICES Specimen Blood - VENOUS Narrative Performed At [facility] LABORATORY SERVICES Non-reactive - No serologic evidence of T. pallidum infection. Cannot exclude incubating or early syphilis . Submit a second specimen in 2-4 weeks if syphilis is clinically suspected. Equivocal - Further testing to follow. Reactive - Further testing to follow. Performing Organization Address [facility] Phone Number [facility] LABORATORY SERVICES CLIA: [id number] [place] [address] [place] [address] Hepatitis B Surface Antigen (05/11/2020 5:29 PM CDT) [facility] HBsAg Negative Negative [facility] LABORATORY SERVICES HBsAg 0.15 [facility] LABORATORY Semi-Quantitative SERVICES Specimen Blood Performing Organization Address [facility] Phone Number [facility] LABORATORY SERVICES CLIA: [id number] [place], [place] [address] [address] [place] [address] RHO (D) IMMUNE GLOBULIN (05/11/2020 5:24 PM CDT) Pathologist [facility] RHIG CANDIDATE? Yes- see comment (A) LAB Comment: Patient is a candidate for RhIg- Patient is Rh Negativ e and baby is Rh Positive. Performed at [facility] Laboratory Services - [facility] Blood Bank [address] [place] [address] Toll Free: [phone] CLIA No. [id number] Specimen Blood Performing Organization Address [facility] Phone Number [facility] LAB ANTI-D R/O PANEL (05/11/2020 5:24 PM CDT) Pathologist [facility] ANTIBODY Anti-D Probable RhIg LAB Comment: Anti-D probably due to Rhogam received 03/01/20. Performed at [facility] Laboratory Services - [facility] Blood [place] [address] Toll Free: [phone] CLIA No. [id number] Specimen Performing Organization Address City/State/Zipcode Phone Number BLD LAB Type and Screen - ONCE Routine (05/11/2020 5:24 PM CDT) Pathologist Sig nature ABO & RH O NEGATIVE LAB Comment: Performed at [facility] Laboratory Services - [facility] Blood [place] [address] Toll Free: [phone] CLIA No. [id number] IAT Positive LAB Comment: Performed at [facility] Laboratory Services - [facility] Blood [place] [address] Toll Free: [phone] CLIA No. [id number] Specimen Blood - VENOUS Performing Organization Address [facility] Phone Number [facility] LAB COVID-19 (ID NOW RAPID TESTING) (05/11/2020 4:05 PM CDT) SARS-CoV-2 Rapid ID Not Detected Not Detected [facility] LABORATORY NOW SERVICES Specimen Swab - NASOPHARYNGEAL SWAB Narrative Performed At ID NOW COVID-19 Assay is an isothermal nucleic acid [facility] LABORATORY SERVICES amplification test intended for the qualitative detect ion of nucleic acid from SARS-CoV-2 viral RNA in nasopharynge al (VOCATIONAL HORTICULTURE INSTRUCTOR) specimens. It is used under Emergency Use [...] indicated. Performing Organization Address City/State/Zipcode Phone Number [facility] LABORATORY SERVICES CLIA: [id number] [place] [address] [place] [address] documented in this encounter Visit Diagnoses Diagnosis [...] Reason for Anti-Infective: Surgical Prophylaxis, Surgical Prophylaxis: DEPARTMENT CHAIRPERSON, Duration of therapy: within 24 hours of surgery ceFAZolin in dextrose (iso-os) (ANCEF) 2 Given 05/12/2020 8:50 PM CDT 2 g gram/100 mL Piggyback 2 g 2 g (2,000 mg), IV Piggyback, Q8H ABX, 3 doses, First dose on 05/12/20 at 0400, Last dose on 05/12/20 at 2000, 100 mL, Reason for Anti-Infective: Surgical Prophylaxis, Surgical Prophylaxis: DEPARTMENT CHAIRPERSON, Duration of therapy: within 24 hours of [...] 05/11/20 at 2215, Routine, Pain (scale 7-10), member of the legislative council approving Restricted medication: MEL GALLAGHER lactated ringers [...] Addre ss Type Group SUPERIOR SUPERIOR STAR [id number] 2016-Manohar INIGUEZ , [place] [phone] MANAGED MEDICAID documented as of this encounter
--- OUTSIDE RECORDS SUMMARY | 2020-06-17 10:22 | XMS REPORT | Summary of Care ---
:1985 Author Organization [facility] Address [address] [place] [address] Care Team Providers Name Role Phone Maureen Palacios MD Primary Care Provider Reason for Visit Reason Comments Assessment Encounter Details Date Type Department Care Team Description 06/07/2020 Telephone [facility] Women's Maureen Palacios MD Assessment Healthcare- [address] [place] [address] [place] [address] [place] [address] [phone] Allergies Active Allergy Reactions Severity Noted Date Comments Codeine Anaphylaxis 11/23/2019 Iodine Nausea and/or Vomiting, Rash 11/23/2019 Latex Anaphylaxis 11/23/2019 documented as of this encounter (statuses as of 06/13/2020) Medications Medication Sig Dispensed Refills Start Date End Date Status fluticasone Inhale. 0 Active propion/salmeterol (ADVAIR DISKUS INHALE) albuterol 90 Inhale 2 Puffs 8.5 g 1 11/23/2019 A ctive mcg/actuation every 6 (six) inhalerIndications: hours as needed Mild intermittent for Wheezing, asthma without Shortness of complication Breath, Bronchospasm or Chest tightness. diethyltoluamide (OFF Apply 1 [place] to 113 g 1 12/21/2019 Active DEEP [...] as of this encounter (statuses as of 06/13/2020) Active Problems Problem Noted Date 37 weeks [...] as of this encounter (statuses as of 06/13/2020) Resolved Problems Problem Noted Date Resolved Date Uterine size-date discrepancy in second trimester 02/15/2020 04/01/2020 Nausea and vomiting during prior to 22 weeks 11/2204/01/2020 gestation documented as of this encounter (statuses as of 06/13/2020) Immunizations Name Administration Dates Next Due HPV9 [...] this encounter Miscellaneous Notes Telephone Encounter - Cris Virk - 06/13/2020 7:36 AM CDTPlease address greater than 48 hours. elephone Encounter - Kaylynn Carranza RN - 06/11/2020 4:57 PM CDTRN called patient back again, name and verified. Patient states that she went to [facility] last week and was given fentanyl and hydrocodone. Patient states that she was told at [facility] that the pain is due to scar tissue from multiple c-sections. Patient requests more hydrocodone. RN advised patient that she would need to be evaluated in the clinic before medications can be prescribed. ER precautions for worsening pain or s/s of infection. Patient verbalized understanding and agrees to plan of care. Call transferred to [facility] for appointment scheduling. Appointment scheduled 06/19/2020 due to patient's 's work schedule and availability. Kaylynn Carranza RN 06/11/2020 5:05 PM Telephone Encounter - Cris Virk - 06/11/2020 7:37 AM CDTPlease address greater than 48 hours. elephone Encounter - Kaylynn Carranza RN - 06/07/2020 9:33 AM CDTRN returned patient call, no answer, left message for patient to return call. Kaylynn Carranza RN 06/07/2020 9:37 AM Telephone Encounter - Cris Virk - 06/07/2020 9:08 AM CDTPt calling to schedule an appointment for today, patient stated she is having vaginal pain and incision pain. documented in this encounter Plan of Treatment Date Type Specialty Care Team Description 06/19/2020 Routine Obstetrics & Sarah Beth Curtis, Visit Gynecology ANSON Aden [address] [address] Health Maintenance Due Date Last Done Comments [...] Addre ss Type Group SUPERIOR SUPERIOR STAR [id number] 2016-Manohar [place] , [place] [phone] MANAGED MEDICAID documented as of this encounter
--- OUTSIDE RECORDS SUMMARY | 2020-06-17 10:22 | XMS REPORT | Summary of Care ---
:1985 Author Organization [facility] Address [address] [place] [address] Care Team Providers Name Role Phone Maureen Palacios MD Primary Care Provider Reason for Visit Reason Comments Refill Request Encounter Details Date Type Department Care Team Description 05/21/2020 Refill [facility] Women's Kavitha Curtis PA-C Refill Request Healthcare- [facility] 146 [facility] 146 [facility] [address] [place] [address] [place] [address] [phone] Allergies Active Allergy Reactions Severity Noted Date [...] Bronchospasm or Chest tightness. diethyltoluamide Apply 1 [place] to 113 g 1 Active (OFF DEEP [...] & Palacios, Maureen Cabral MD Visit Gynecology [address] [place] [address] DR. Mach[address] [place] [address] [phone] Health Maintenance Due Date Last Done Comments [...] Addre ss Type Group SUPERIOR SUPERIOR STAR [id number] 2016-[facility] [place] , [place] [phone] MANAGED MEDICAID documented as of this encounter
[2020-06-17 10:28] VITALS: BP 113/84; TEMP 98; O2SAT 98
== END 2020-06-17 10:18 | disposition home or self-care (01) ==
LOC: ER 09:10
DX: O90.6 Postpartum mood disturbance (principal); F31.9 Bipolar disorder, unspecified; Z88.5 Allergy status to narcotic agent; Z91.040 Latex allergy status; Z91.048 Other nonmedicinal substance allergy status
CPT/HCPCS: 99282

== ENCOUNTER 2021-02-02 11:43 | Emergency (ER) | payer OTHER ==
[2021-02-02 13:13] LABS: SARS-COV-2 RT PCR NEGATIVE (NEGATIVE)
--- NOTE | 2021-02-02 13:23 | ER ---
Nurse's Notes [facility] Name: Bethany Duarte Age: 35 yrs Sex: Female : 1985 Arrival Date: 02/02/2021 Time: 11:45 Bed 14 Private MD: Diagnosis: Acute upper respiratory infection, unspecified Presentation: 02/02 11:53 Chief complaint: Patient states: Cough, body aches, chills since yesterday. No known ll1 fever. + decreased appetite and slight sore throat. No N/V/D. Coronavirus screen: Client denies travel out of the [place] in the last 14 days. chills, cough unrelated to allergies, difficulty breathing, fatigue, headache, muscle pain, shaking with chills, shortness of breath, sore throat, Client presents with at least one sign or symptom that may indicate coronavirus-19. Standard/surgical mask placed on the client. Ebola Screen: Patient denies travel to an Ebola-affected area in the 21 days before illness onset. Initial Sepsis Screen: Does the patient meet any 2 criteria? No. Patient's initial sepsis screen is negative. Does the patient have a suspected source of infection? Yes: Productive cough/pneumonia. Risk Assessment: Do you want to hurt yourself or someone else? Patient reports no desire to harm self or others. Onset of symptoms was February 01, 2021. 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 Flu vaccine is up to date. - Social history:: Smoking status: Patient reports the use of cigarette tobacco products, smokes one-half pack cigarettes per day. Screenin:02 Abuse screen: Denies threats or abuse. Denies injuries from another. Nutritional zb screening: No deficits noted. Tuberculosis screening: No symptoms or risk factors identified. Fall Risk None identified. Assessment: 13:01 General: Appears in no apparent distress. uncomfortable, Behavior is cooperative, zb anxious, Reports chills for >3 days, feeling ill for > 3 days, fatigue for >3 days. Pain: Complains of pain in throat, generalized muscle pain Pain currently is 8 out of 10 on a pain scale. Quality of pain is described as aching. Neuro: Level of Consciousness is awake, alert, obeys commands, Oriented to person, place, time, situation. Cardiovascular: Patient's skin is warm and dry. Respiratory: Airway is patent Respiratory effort is even, unlabored, Respiratory pattern is regular, symmetrical. GI: No deficits noted. EENT: Throat is reddened has enlarged tonsils bilaterally. Derm: Skin is normal. Musculoskeletal: Circulation, motion, and sensation intact. Range of motion: intact in all extremities. 13:35 Reassessment: d/c instructions provided. no question. up ad matilda. zb Vital Signs: 11:53 BP 124 / 81; Pulse 89; Resp 17; Temp 98.4; Pulse Ox 98% on R/A; Weight 83.91 kg; Height ll1 5 ft. 2 in. (157.48 cm); Pain 10/10; 13:00 BP 135 / 94; Pulse 84; Resp 16; Pulse Ox 100% on R/A; zb 11:53 Body Mass Index 33.84 (83.91 kg, 157.48 cm) ll1 ED Course: 11:45 Patient arrived in ED. as 11:46 [facility]C [facility] kb 11:46 León Kruse MD is Attending Physician. kb 11:55 Triage completed. ll1 12:07 Marcus Espinoza RN is Primary Nurse. ll1 12:08 Strep Sent. ll1 12:29 Arm band placed on Patient placed in an exam room, on a stretcher. ll1 13:02 Patient has correct armband on for positive identification. Placed in gown. Bed in low zb position. Pulse ox on. NIBP on. Door closed. Noise minimized. 13:37 No provider procedures requiring assistance completed. Patient did not have IV access zb during this emergency room visit. 13:38 Primary Nurse role handed off by Marcus Espinoza RN zb 13:38 Brown, Francisca, RN is Primary Nurse. zb Administered Medications: No medications were administered Outcome: 13:23 Discharge ordered by MD. tang 13:37 Discharged to home ambulatory. zb 13:37 Condition: stable 13:37 Discharge instructions given to patient, Instructed on discharge instructions, follow up and referral plans. Demonstrated understanding of instructions, follow-up care. 13:38 Patient left the ED. zb Signatures: Evelin Siegel, LOAN AUDITOR-C LOAN AUDITOR-CkPam Diggs Lynsay, RN RN 1 Francisca Wright, RN RN zb Corrections: (The following items were deleted from the chart) 12:29 11:57 Arm band placed on Patient placed in an exam room, on a stretcher, [place] [id number] 12:33 12:08 CORONAVIRUS+MR.LAB.BRZ drawn and sent. [facility] EDNM 12:33 12:08 Influenza Screen (A \T\ B)+BA.LAB.BRZ drawn and sent. [facility] EDMS
--- NOTE | 2021-02-02 13:24 | EDPHYS ---
Physician Documentation [facility] Name: Bethany Duarte Age: 35 yrs Sex: Female : 1985 Arrival Date: 02/02/2021 Time: 11:45 Bed 14 Private MD: ED Physician León Kruse HPI: 02/02 14:19 This 35 yrs old Female presents to ER via Ambulatory with complaints of Cough, kb body aches/chills. 14:19 The patient or guardian reports cough, that is intermittent, described as mild, flu kb symptoms, myalgias. Onset: The symptoms/episode began/occurred yesterday. Severity of symptoms: At their worst the symptoms were moderate, in the emergency department the symptoms are unchanged. Modifying factors: The symptoms are alleviated by nothing, the symptoms are aggravated by nothing. Associated signs and symptoms: Pertinent positives: rhinorrhea, sore throat, Pertinent negatives: chest pain, diarrhea, ear ache, fever, nausea, vomiting. The patient has not experienced similar symptoms in the past. The patient has not recently seen a physician. 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 Flu vaccine is up to date. - Social history:: Smoking status: Patient reports the use of cigarette tobacco products, smokes one-half pack cigarettes per day. ROS: 14:16 Abdomen/GI: Negative for abdominal pain, nausea, vomiting, diarrhea, and constipation. kb 14:16 Constitutional: Positive for body aches, chills, fatigue, malaise. 14:16 ENT: Positive for sinus congestion, sore throat. 14:16 Respiratory: Positive for cough, Negative for dyspnea on exertion, hemoptysis, orthopnea, pleurisy, shortness of breath, sputum production, wheezing. 14:16 All other systems are negative. Exam: 14:19 Constitutional: This is a well developed, well nourished patient who is awake, alert, kb and in no acute distress. Head/Face: Normocephalic, atraumatic. Cardiovascular: Regular rate and rhythm with a normal S1 and S2. No gallops, murmurs, or rubs. No pulse deficits. Respiratory: Respirations even and unlabored. No increased work of breathing, no retractions or nasal flaring. Abdomen/GI: Soft, non-tender. No distention Skin: Warm, dry with normal turgor. Normal color. MS/ Extremity: Pulses equal, no cyanosis. Neurovascular intact. Full, normal range of motion. Neuro: Awake and alert, GCS 15, oriented to person, place, time, and situation. Moves all extremities. Normal gait. Psych: Awake, alert, with orientation to person, place and time. Behavior, mood, and affect are within normal limits. 14:19 ENT: Ear canal(s): are normal, TM's: are normal, Nose: is normal, Mouth: is normal, Posterior pharynx: is normal. 14:19 Respiratory: Breath sounds: are clear throughout. Vital Signs: 11:53 BP 124 / 81; Pulse 89; Resp 17; Temp 98.4; Pulse Ox 98% on R/A; Weight 83.91 kg; Height ll1 5 ft. 2 in. (157.48 cm); Pain 10/10; 13:00 BP 135 / 94; Pulse 84; Resp 16; Pulse Ox 100% on R/A; zb 11:53 Body Mass Index 33.84 (83.91 kg, 157.48 cm) ll1 MDM: 12:00 Patient medically screened. kb 14:18 Data reviewed: vital signs, nurses notes. Data interpreted: Pulse oximetry: on room air kb is 100 %. Interpretation: normal. Counseling: I had a detailed discussion with the patient and/or guardian regarding: the historical points, exam findings, and any diagnostic results supporting the discharge/admit diagnosis, lab results, the need for outpatient follow up, a family practitioner, to return to the emergency department if symptoms worsen or persist or if there are any questions or concerns that arise at home. 02/02 12:00 Order name: Strep; Complete Time: 13:11 kb 02/02 13:07 Order name: Throat Culture EDMS 02/02 13:14 Order name: COVID-19/FLU A+B; Complete Time: 13:16 EDMS Administered Medications: No medications were administered Disposition: 15:18 Co-signature as Attending Physician, León Kruse MD. rn Disposition: 02/02/21 13:23 Discharged to Home. Impression: Acute upper respiratory infection, unspecified. - Condition is Stable. - Discharge Instructions: Upper Respiratory Infection, Adult, [id number], Viral Respiratory Infection, [id number], Sore Throat, [id number]. - Medication Reconciliation Form, Thank You Letter, Antibiotic Education, Prescription Opioid Use form. - Follow up: Emergency Department; When: As needed; Reason: Worsening of condition. Follow up: Private Physician; When: 2 - 3 days; Reason: Recheck today's complaints, Continuance of care, Re-evaluation by your physician. Signatures: Dispatcher [employer] [facility] Evelin Siegel, ADJUSTER ELECTRICAL CONTACTS-C ADJUSTER ELECTRICAL CONTACTS-Ckb León Kruse MD MD rn Lewis, WALLACE Velazquez RN ll1 Francisca Wright RN RN jose angelb Corrections: (The following items were deleted from the chart) 12:33 12:01 Influenza Screen (A \T\ B)+BA.LAB.BRZ ordered. [facility] EDMS 12:33 12:01 CORONAVIRUS+MR.LAB.BRZ ordered. [facility] EDMS 13:38 13:23 02/02/2021 13:23 Discharged to Home. Impression: Acute upper respiratory zb infection, unspecified. Condition is Stable. Forms are Medication Reconciliation Form, Thank You Letter, Antibiotic Education, Prescription Opioid Use. Follow up: Emergency Department; When: As needed; Reason: Worsening of condition. Follow up: Private Physician; When: 2 - 3 days; Reason: Recheck today's complaints, Continuance of care, Re-evaluation by your physician. kb
[2021-02-02 13:54] VITALS: TEMP 98.4
[2021-02-02 13:56] VITALS: BP 135/94; O2SAT 100
== END 2021-02-02 13:38 | disposition home or self-care (01) ==
LOC: ER 11:43
DX: J06.9 Acute upper respiratory infection, unspecified (principal); Z20.822 Contact with and (suspected) exposure to COVID-19; Z88.5 Allergy status to narcotic agent; Z91.040 Latex allergy status; Z91.048 Other nonmedicinal substance allergy status; F17.210 Nicotine dependence, cigarettes, uncomplicated
CPT/HCPCS: 87070; 87081; 0240U; 99283

== ENCOUNTER 2021-04-18 16:25 | Emergency (ER) | payer OTHER ==
--- OUTSIDE RECORDS SUMMARY | 2021-04-18 16:29 | XMS REPORT | Continuity of Care Document ---
:1985 Author Organization [facility] t Address [address] [place] [place] [address] Care Team Providers Name Role Phone Maureen [...] Type Date Date Clinician phenylep DA Active SV [facility] hrine 04-17 [place] HCl 00:00: [address] iodine DA Active [facility] 04-[facility] [place] 00:00: [address] codeine DA Active [facility] 04-17 [place] 00:00: [address] chlorphe DA Active [facility] niramine 04-17 [place] 00:00: [address] latex DA Active [facility] 04-17 [place] 00:00: [address] phenylep DA Active [facility] hrine 8 [place] HCl 00:00: [address] iodine DA Active [facility] 03-28 [place] 00:00: [address] codeine DA Active [facility] 8-06 [place] 00:00: [facility] chlorphe DA Active [facility] niramine 8-06 [place] 00:00: [facility] latex DA Active [facility] 8-06 [place] 00:00: [address] phenylep DA Active [facility] hrine 6-11 [place] HCl 00:00: [address] iodine DA Active [facility] 611 [place] 00:00: [facility] codeine DA Active [facility] 6-11 [place] 00:00: [facility] chlorphe DA Active [facility] niramine 6 [place] 00:00: [address] latex DA Active [facility] 6 [place] 00:00: [address] Medications This patient has no known medications. Procedures This patient has no known procedures. Encounters Start End Encounter Admission Attending Care Care Encounter Source Date/Time Date/Time Type Type Clinicians Facility Department ID 2020-06-07 2020-06-07 Telephone Maureen Palacios [facility] [id number] 00:00:00 00:00:00 Cam Buford [id number] [place] 4.2.7.2.686 Professio [phone] [address] 2020-05-29 2020-05-29 Telephone Maureen Palacios [facility] 1.2.840.114 [id number] 00:00:00 00:00:00 Cam [place]ord [id number] [place] 4.2.7.2.686 Professio [phone] [address] 2020-05-29 2020-05-29 Telephone Maureen Palacios [facility] 1.2.840.114 [id number] 00:00:00 00:00:00 Cam Buford 350.1.13.10 [place] 4.2.7.2.686 Professio [phone] [address] 2020-05-21 2020-05-21 [facility] [id number] 00:00:00 00:00:00 Sarah Beth Head 350.1.13.10 [place] 4.2.7.2.686 Professio [phone] [address] 2020-05-11 2020-05-13 Hospital [facility] 1.2.840.114 [id number] 15:48:00 11:55:00 Encounter Tiffany RUSSELL 350.1.13.10 [facility] 4.2.7.2.686 [id number] [facility] 2020-05-10 2020-05-10 Telephone Maureen Palacios [facility] 1.2.840.114 [id number] 00:00:00 00:00:00 Cam [place]ord 350.1.13.10 [place] 4.2.7.2.686 Professio [phone] [address] 2020-05-10 2020-05-10 Telephone Maureen Palacios [facility] 1.2.840.114 [id number] 00:00:00 00:00:00 Cam [place] 350.1.13.10 [place] 4.2.7.2.686 Professio [phone] [address] 2020-05-08 2020-05-08 Telephone Maureen Palacios [facility] 1.2.840.114 [id number] 00:00:00 00:00:00 Cam [place]ord 350.1.13.10 [place] 4.2.7.2.686 Professio [phone] [address] 2020-05-06 2020-05-06 Routine Maureen Palacios [facility] [id number] 14:51:16 16:17:56 Cam [place]ord 350.1.13.10 Visit [place] 4.2.7.2.686 Professio [phone] [address] Results Test Description Test Time Test [...] URINESPECIMEN DESCRIPTION: CMCIndication for culture: Suprapubic PainUA [id number] 03:35:00 Test Item Value Reference Range Interpretation Comments UA RBC (test code = RBCU) 6-10 0-5 UA EPITHELIAL CELLS (test code = EPIU) 6-10 0-10 UA MUCUS (test code = MUCU) OCC NONE-FEW SOURCE: URINESPECIMEN DESCRIPTION: CMCIndication for culture: Suprapubic PainUA RFLX MICR CULT IF [id number] 03:35:00 Test Item Value Reference Range Interpretation [...] URINESPECIMEN DESCRIPTION: CMCIndication for culture: Suprapubic PainUA [id number] 03:35:00 Test Item Value Reference Range Interpretation Comments UA RBC (test code = RBCU) 6-10 0-5 UA EPITHELIAL CELLS (test code = EPIU) 6-10 0-10 UA MUCUS (test code = MUCU) OCC NONE-FEW SOURCE: URINESPECIMEN DESCRIPTION: CMCIndication for culture: Suprapubic PainUA RFLX MICR CULT IF [id number] 03:34:00 Test Item Value Reference Range Interpretation [...] URINESPECIMEN DESCRIPTION: CMCIndication for culture: Suprapubic PainUA [id number] 03:34:00 Test Item Value Reference Range Interpretation Comments UA RBC (test code = RBCU) 0-5 SOURCE: URINESPECIMEN DESCRIPTION: CMCIndication for culture: Suprapubic PainHCG [id number] 02:15:00 Test Item Value Reference Range Interpretation Comments HCG SERUM (test 768174 mIU/mL <5 Reporting U nits: code = [...] 11,500 - 289,00 012-16 weeks 18,300 - 137,57240-86 we eks 1,400 - 53,000(2nd Trimester)29-41 weeks 940 - 60,000(3r d Trimester) - US ABDOMEN [id number] 02:06:00 [place]: [facility] St: REG Name: MARCE BOWER [facility] : 1985 Age/S: 34/F [address] [facility] Unit #: [id number] Loc: [place], [place] [address] Phys: Desiree Rodriguez MD Acct: [id number] Dis Date: Status: [facility] ER PHONE #: [phone] Exam Date: 10/17/2019114 FAX #: [phone] Reason: upper abd pain and tenderness EXAMS: CPT CODE: [id number] US ABDOMEN LTD 06558Kkwsmm ultrasound. History: First trimester . Vaginal bleeding. [...] are normal. PAGE 1 Signed Report (CONTINUED) Sultan: [facility] St: REG Name: SATHISHMARCE [facility] : 1985 Age/S: 34/F [address] [facility] Unit #: [id number] Loc: [place], [place] [address] Phys: Desiree Rodriguez MD Acct: [id number] Dis Date: Status: REG ER PHONE #: [phone] Exam Date: 10/17/2019 0115 FAX #: [phone] Reason: upper abdpain and tenderness EXAMS: CPT CODE: [id number] US ABDOMEN LTD 83048 <Continued> Impression: No sonographic evidence of cholelithiasis [...] (0209) PAGE 2 Signed Report- US PREG 1ST [id number] 02:06:00 Sultan: [facility] St: REG Name: MARCE BOWER [facility] : 1985 Age/S: 34/F [address] [facility] Unit #: [id number] Loc: [place], [place] [address] Phys: Desiree Rodriguez MD Acct: [id number] Dis Date: Status: REG ER PHONE #: [phone] Exam Date: 10/17/2019 0115 FAX #: [phone] Reason: pelvic pain EXAMS: CPT CODE: [id number] US PREG 1ST TRIMTR 10165Tgwhhb ultrasound. History: First trimester . Vaginal bleeding. [...] are normal. PAGE 1 Signed Report (CONTINUED) Sultan: [facility] St: REG Name: MARCE BOWER [facility] : 1985 Age/S: 34/F [address] [facility] Unit #: [id number] Loc: [place], [place] [address] Phys: Desiree Rodriguez MD Acct: [id number] Dis Date: Status: REG ER PHONE #: [phone] Exam Date: 10/17/2019 0115 FAX #: [phone] Reason: pelvic pain EXAMS: CPT CODE: [id number] US PREG 1ST TRIMTR 91222 <Continued> Impression: No sonographic evidence of cholelithiasis [...] 10/17/2019 (208) PAGE 2 Signed ReportBASIC METABOLIC [id number] 01:39:00 Test Item Value Reference Range Interpretation [...] 8.4 mg/dL 7.8-10.9 N CA) BASIC METABOLIC [id number] 01:30:00 Test Item Value Reference Range Interpretation [...] CA) 8.4 mg/dL 7.8-10.9 N CBC W/AUTO [id number] 01:10:00 Test Item Value Reference Range Interpretation [...] 0.00 K/mm3 0.00-0.20 N NRBC#) POC LACTIC [id number] 15:26:00 Test Item Value Reference Range Interpretation Comments POC LACTIC ACID (test code = 1.08 MMOL/L 0.40-2.00 N POCLAC) UA RFLX MICR CULT IF [id number] 14:14:00 Test Item Value Reference Range Interpretation [...] for culture: Sev. Sepsis-no other srcHEPATIC FUNCTION [id number] 14:01:00 Test Item Value Reference Range Interpretation [...] 45-117 N TOTAL (test code = ALKP) [id number] 14:01:00 Test Item Value Reference Range Interpretation [...] 0.00-0.05 H PROCAL) - XR CHEST 1 [id number] 13:43:00 FAX: Beto Montgomery MD Camps: ER St: REG FAX: Marcos Mayer FAX: Bentley Chamorro MD [phone] Name: MARCE BOWER [facility] : 1985 Age/S: 33/F [address] [facility] Unit #: [id number] Loc: [place], [place] [address] Phys: Marcos Bonilla Acct: [id number] Dis Date: Status: REG ER PHONE #: [phone] Exam Date: 05/29/2019 1253 FAX #: [phone] Reason: cough EXAMS: CPT CODE: [id number] XR CHEST 1 V 69103 - XR CHEST 1 V PROVIDED REASON [...] DEE MILLER RT(R) ARRT Transcribed Date/Time/By: 05/29/2019 (1540) :[email or web address] Orig Print D/T: S: 05/29/2019 (4263) Automated exposure control, iterative reconstruction technique, and/oradjustment of mA and/or kV according to patient's size was utilizedfor optimum radiation dose reduction. PAGE 1 Signed ReportUA RFLX MICR CULT IF [id number] 13:21:00 Test Item Value Reference Range Interpretation [...] SGU) UA BLOOD DIPSTICK (test code = SHANUA) NEGATIVE NEGATIVE UA PH DIPSTICK (test code [...] for culture: Sev. Sepsis-no other srcHEPATIC FUNCTION [id number] 13:19:00 Test Item Value Reference Range Interpretation [...] 45-117 N TOTAL (test code = ALKP) [id number] 13:19:00 Test Item Value Reference Range Interpretation [...] code = ng/mL 0.00-0.05 PROCAL) CBC W/AUTO [id number] 13:06:00 Test Item Value Reference Range Interpretation [...] 0.00 K/mm3 0.00-0.20 N NRBC#) CHEMISTRY 8 [id number] 12:48:00 Test Item Value Reference Range Interpretation [...] 0.6 MG/DL 0.6-1.0 N CREATBED) POC LACTIC [id number] 12:43:00 Test Item Value Reference Range Interpretation Comments POC LACTIC ACID 2.86 MMOL/L 0.40-2.00 H RESULTS CALL ED TO [] (test code = POCLAC) AT 1243 05/29/19.NMI-MT CRITICA L VALUE READ BA CK BY NURSE AND VERIF IED BY TECH? []REFEREN CE RANGES FOR: 1) ARTERIAL SAMPLE (0.5-1.6MMOL/L) 2) SPINAL FLUID (0.6-2.2MMOL/L) UR HCG [id number] 23:25:00 Test Item Value Reference Range Interpretation Comments UR HCG QUAL (test code = HCGQLU) NEGATIVE Do not do if urine colorless or bloody CLEARUPG RESULT: NEGATIVEPERFORMED BY: MARIIA.LCHCG LOT # : [id number] EXPIRATION DATE: 10/20/20HCG PROCEDURAL CONTROL VERIFIED KIT LOT # [id number]. DATE 10/20/20- CT ABD PELVIS [id number] 16:29:00 Sultan: [facility] St: REG Name: MARCE BOWER [facility] : 1985 Age/S: 33/F [address] [facility] Unit #: [id number] Loc: [place], [place] [address] Phys: Beto Puri MD Acct: [id number] Dis Date: Status: REG ER PHONE #: [phone] Exam Date: 04/17/2019 1540 FAX #: [phone] Reason: ABD PAIN, RLQ CTDI: DLP: Automated exposure control, iterative reconstruction technique, and/oradjustment of mAand/or kV according to patient's size was utilized fooptimum radiation dose reduction. EXAMS: CPT CODE: [id number] CT ABD PELVIS W/CONT 24600 - CT ABD PELVIS W/CONT REASON FOR [...] joint; chronic PAGE 1 Signed Report (CONTINUED) Sultan: [facility] St: REG Name: MARCE BOWER [facility] : 1985 Age/S: 33/F [address] [facility] Unit #: [id number] Loc: [place], [place] [address] Phys: Beto Puri MD Acct: [id number] Dis Date: Status: REG ER PHONE #: [phone] Exam Date: 04/17/2019 5859 FAX #: [phone] Reason: ABD PAIN, RLQ CTDI: DLP: Automated exposure control, iterative reconstruction technique, and/oradjustment of mA and/or kV according to patient's size was utilized fooptimum radiation dose reduction. EXAMS: CPT CODE: [id number] CT ABD PELVIS W/CONT 03338 <Continued> IMPRESSION: No acute process in the abdomen or pelvis. The appendix is normal. Location: V20 at 1629 Reported and signed by:DEANDRE ROJAS MD Facility ACR Accreditation for CT - March 2012 CC: Latasha Corado BOLTING MACHINE OPERATOR; Beto Puri MD; Bentley Arnett MD Technologist: LILIAN BOWER RT(R) (ARRT) Transcribed Date/Time/By: 04/17/2019 (1053) : By: [email or web address] Orig Print D/T: S: 04/17/2019 (2076) PAGE 2 Signed ReportURINALYSIS W/O [id number] 15:21:00 Test Item Value Reference Range Interpretation [...] code = LEUU) SOURCE: URINESPECIMEN DESCRIPTION: CMCUA [id number] 15:21:00 Test Item Value Reference Range Interpretation Comments UA WBC (test code = WBCU) 2-5 0-5 UA RBC (test code = RBCU) 1-5 0-5 UA BACTERIA (test code = BACU) 1+ NONE SEEN UA SQUAMOUS CELLS (test code = 5-10 #/lpf NONE SEEN SQU) SOURCE: URINESPECIMEN DESCRIPTION: CMCURINALYSIS W/O [id number] 14:48:00 Test Item Value Reference Range Interpretation [...] code = LEUU) SOURCE: URINESPECIMEN DESCRIPTION: CMCUA [id number] 14:48:00 Test Item Value Reference Range Interpretation Comments UA WBC (test code = WBCU) 0-5 UA RBC (test code = RBCU) 0-5 SOURCE: URINESPECIMEN DESCRIPTION: CMCURINALYSIS W/O [id number] 14:48:00 Test Item Value Reference Range Interpretation [...] code = LEUU) SOURCE: URINESPECIMEN DESCRIPTION: CMCUA [id number] 14:48:00 Test Item Value Reference Range Interpretation Comments UA WBC (test code = WBCU) 0-5 UA RBC (test code = RBCU) 0-5 SOURCE: URINESPECIMEN DESCRIPTION: [facility] [id number] 13:28:00 Test Item Value Reference Range Interpretation [...] TOTAL (test code = ALKP) CHEMISTRY 8 [id number] 13:08:00 Test Item Value Reference Range Interpretation [...] 0.7 MG/DL 0.6-1.0 N CREATBED) CBC W/AUTO [id number] 12:37:00 Test Item Value Reference Range Interpretation [...] 0.00-0.20 N NRBC#) - XR NECK SOFT [id number] 12:32:00 FAX: MakLatasha Trevino [phone] Camps: ER St: REG FAX: Beto Montgomery MD FAX: Bentley Chamorro MD [phone] Name: MARCE BOWER [facility] : 1985 Age/S: 33/F [address] [facility] Unit #: [id number] Loc: [place], [place] [address] Phys: Beto Puri MD Acct: [id number] Dis Date: Status: REG ER PHONE #: [phone] Exam Date: 04/17/2019 1212 FAX #: [phone] Reason: PAIN EXAMS: CPT CODE: [id number] XR NECK SOFT TISSUE 18394 - XR NECK SOFT TISSUE PROVIDED REASON FOR EXAM: PAIN Comparison: None available. FINDINGS: Lung apices are clear. Prevertebralsoft tissues are unremarkable. Facets are well aligned.. No acute fracture or subluxation. Regional soft tissues are unremarkable. IMPRESSION: No acute process. Location: V20 at 1232 Reported and signed by: DEANDRE ROJAS MD CC: Latasha Corado BOLTING MACHINE OPERATOR; Beto Puri MD; Bentley Arnett MD Technologist: DEE MILLER RT(R) ARRT Transcribed Date/Time/By: 04/17/2019 (5992) :[email or web address] Orig Print D/T: S: 04/17/2019 (7450) Automated exposure control, iterative reconstruction technique, and/oradjustment of mA and/or kV according to patient's size was utilizedfor optimum radiation dose reduction. PAGE 1 Signed ReportUR HCG [id number] 05:51:00 Test Item Value Reference Range Interpretation Comments UR HCG QUAL (test code = HCGQLU) NEGATIVE UPG RESULT: NEGATIVEPERFORMED BY: SMHCG LOT # : [id number] EXPIRATION DATE: 07/22/20HCG PROCEDURAL CONTROL VERIFIED KIT LOT # [id number]. DATE 07/22/20COMPREHENSIVE METABOLIC [id number] 04:54:00 Test Item Value Reference Range Interpretation [...] TOTAL (test code = ALKP) COMPREHENSIVE METABOLIC [id number] 04:48:00 Test Item Value Reference Range Interpretation [...] code = ALKP) - XR CHEST 2 [id number] 04:44:00 FAX: Eric Arnett MD [phone] Camps: ER St: REG Name: MARCE BOWER [facility] : 1985 Age/S: 33/F [address] [facility] Unit #: [id number] Loc: [place], [place] [address] Phys: Eric Arnett MD Acct: [id number] Dis Date: Status: REG ER PHONE #: [phone] Exam Date: 03/28/20195 FAX #: [phone] Reason: cp EXAMS: CPT CODE: [id number] XR CHEST 2 V 51264 HISTORY: Chest pain. Location: C3 COMPARISON:None FINDINGS: [...] MILLER RT(R) ARRT Transcribed Date/Time/By: 03/28/2019 (0444) :[email or web address] Orig Print D/T: S: 03/28/2019 (0447) Automated exposure control, iterative reconstruction technique, and/oradjustment of mA and/or kV according to patient's size was utilizedfor optimum radiation dose reduction. PAGE 1 Signed ReportCBC W/AUTO [id number] 04:33:00 Test Item Value Reference Range Interpretation [...] 0.00 K/mm3 0.00-0.20 N NRBC#) TROPONIN I [id number] 04:19:00 Test Item Value Reference Range Interpretation Comments TROPONIN I RAPID 0.00 NG/ML 0.00-0.08 N 0.00 - 0.08 (test code = Normal0.09 - 0. 40 TROPIRAP) Indeterminate f or AMI 0.41 and above Compatible with AMI HEPATIC FUNCTION [id number] 00:40:00 Test Item Value Reference Range Interpretation [...] 45-117 N TOTAL (test code = ALKP) [id number] 00:40:00 Test Item Value Reference Range Interpretation Comments LIPASE (test code = 76 U/L 73-393 N Reportin g units: LIP) International U nits/L URINALYSIS W/O [id number] 00:39:00 Test Item Value Reference Range Interpretation [...] (test code = LEUU) SOURCE: URINESPECIMEN DESCRIPTION: [facility] [id number] 00:39:00 Test Item Value Reference Range Interpretation Comments UA WBC (test code = WBCU) 0-2 0-5 UA RBC (test code = RBCU) 0-2 0-5 UA BACTERIA (test code = BACU) 2+ NONE SEEN UA SQUAMOUS CELLS (test code = SQU) 3-5 #/lpf NONE SEEN SOURCE: URINESPECIMEN DESCRIPTION: [facility] [place] ABDOMEN [id number] 00:34:00 Sultan: [facility] St: REG Name: MARCE BOWER [facility] : 1985 Age/S: 33/F [address] [id number] Loc: [place], [place] [address] Phys: Desiree Rodriguez MD Acct: [id number] Dis Date: Status: REG ER PHONE #: [phone] Exam Date: 02/26/2019 0013 FAX #: [phone] Reason: abdominal pain EXAMS: CPT CODE: [id number] US ABDOMEN LTD 73083 HISTORY: Pain COMPARISON: None FINDINGS: The gallbladder [...] code = LEUU) SOURCE: URINESPECIMEN DESCRIPTION: CMCUA [id number] 00:32:00 Test Item Value Reference Range Interpretation Comments UA WBC (test code = WBCU) 0-5 UA RBC (test code = RBCU) 0-5 SOURCE: URINESPECIMEN DESCRIPTION: CMCURINALYSIS W/O [id number] 00:32:00 Test Item Value Reference Range Interpretation [...] (test code = LEUU) SOURCE: URINESPECIMEN DESCRIPTION: [facility] [id number] 00:32:00 Test Item Value Reference Range Interpretation Comments UA WBC (test code = WBCU) 0-5 UA RBC (test code = RBCU) 0-5 SOURCE: URINESPECIMEN DESCRIPTION: [facility] W/AUTO [id number] 00:18:00 Test Item Value Reference Range Interpretation [...] 0.00 K/mm3 0.00-0.20 N NRBC#) CHEMISTRY 8 [id number] 23:59:00 Test Item Value Reference Range Interpretation [...] 0.8 MG/DL 0.6-1.0 N CREATBED) URINALYSIS W/O [id number] 06:54:00 Test Item Value Reference Range Interpretation [...] (test code = LEUU) SOURCE: URINESPECIMEN DESCRIPTION: CMCUDS PROCEDURAL CONTROL VERIFIED? YKIT LOT # [id number]. DATE DRUGS OF ABUSE SCREEN [id number] 06:54:00 Test Item Value Reference Range Interpretation [...] CMCUDS PROCEDURAL CONTROL VERIFIED? YKIT LOT # [id number]. DATE URINALYSIS W/O [id number] 06:51:00 Test Item Value Reference Range Interpretation [...] SOURCE: URINESPECIMEN DESCRIPTION: CMCDRUGS OF ABUSE SCREEN [id number] 06:51:00 Test Item Value Reference Range Interpretation [...] [place]) NEGATIVE SOURCE: URINESPECIMEN DESCRIPTION: CMCUR HCG [id number] 06:43:00 Test Item Value Reference Range Interpretation Comments UR HCG QUAL (test code = HCGQLU) NEGATIVE UPG RESULT: NEGATIVEPERFORMED BY: MLMHCG LOT # : [id number] EXPIRATION DATE: 02/20/20HCG PROCEDURAL CONTROL VERIFIED YKIT LOT # [id number]. DATE 02/20/20CBC W/AUTO [id number] 05:46:00 Test Item Value Reference Range Interpretation [...] 0.00 K/mm3 0.00-0.20 N NRBC#) BASIC METABOLIC [id number] 05:15:00 Test Item Value Reference Range Interpretation [...] 8.6 mg/dL 7.8-10.9 N CA) BASIC METABOLIC [id number] 05:12:00 Test Item Value Reference Range Interpretation [...] CA) 8.6 mg/dL 7.8-10.9 N HEPATIC FUNCTION [id number] 05:12:00 Test Item Value Reference Range Interpretation [...] 45-117 N TOTAL (test code = ALKP) [id number] 05:12:00 Test Item Value Reference Range Interpretation Comments ACETAMINOPHEN (test code = ACET) <2 mcg/mL 10-25 L [id number] 05:12:00 Test Item Value Reference Range Interpretation Comments SALICYLATE (test code = TASHA) 3.3 mg/dL 2.8-20.0 N [id number] 05:12:00 Test Item Value Reference Range Interpretation [...] BLOODARE NEEDED TO ASSES S THE EFFECT. [id number] 11:46:00 RUN DATE: 08/15/18 [facility] LAB LIVE PAGE 1 RUN TIME: 1146 Specimen Inquiry RUN USER: INTERFACE PATIENT: MARCE BOWER LOC: [facility] U #: [id number] AGE/SX: 32/F ROOM: [facility] RE08/11/18REG DR: Dmitri Contreras MD : [birth year] BED: 01 DIS: 08/13/18 STATUS: DIS IN TLOC: SPEC #: [id number] RECD: 08/11/18 STATUS: RAMON REQ #: [id number] GABRIELE: 08/11/18-[address]: Dmitri Contreras MD ENTERED: 08/12/18-0752 SP TYPE: SURGICAL OTHR DR: Jeff Arguello MD, Viji CRNAORDERED: GROSS/MICRO V CODES: SB8660 - PLACENTA, NOS COPIES TO: Jeff Arguello MD [facility] [address] [place] [address] Dmitri Contreras MD [address] [place] [address] Tete Pickering SHOEMAKER APPRENTICE [address] [place] [address] PROCEDURES: GROSS/MICRO V (08/12/18-075) TISSUES: A. PLACENTA, NOS - PLACENTA AND [...] CONTINUED ON NEXT PAGE RUN DATE: 08/15/18 [facility] LIVE PAGE 2 RUN TIME: 1146 Specimen Inquiry RUN USER: INTERFACE SPEC #: [id number] PATIENT: SATHISHMARCETD PATINO #[id number] (Continued) GROSS DESCRIPTION Specimen 1 received in [...] no masses or other focal lesions identified. Reel Blade Bender Furnace Tender sections are submitted as follows: 1A - insurance sales representative sections of the umbilical cord. 1B - membranres. 1C-1D - full thickness sections of the chorionic plate. 1E - insurance sales representative section of the infarcted area. RPE five blocks 1A - 1E. MICROSCOPIC DESCRIPTION Microscopic examination of all glass slides. Signed SIGNATURE ON FILE Foreign DrakeJonathan 08/15/18 1146 END OF REPORT
[2021-04-18 17:06] LABS: Urine Blood Negative (Negative); Urine Glucose Negative (Negative); Urine Protein Negative (Negative); Urine Specific Gravity 1.025 (1.005-1.030)
[2021-04-18 17:15] LABS: Absolute Lymphocytes (CBC) 2.9 K/uL (0.7-4.9); Basophils % 0.9 % (0-1.3); Hematocrit 39.2 % (36.0-45.0); Lymphocytes % 24.2 % (15.3-44.8); MPV 7.9 fL (7.6-11.3); RBC Red Blood Cell Count 4.51 M/uL (3.86-4.86)
[2021-04-18 17:31] LABS: ALT/SGPT 31 U/L (12-78); AST/SGOT 12 U/L (15-37); Albumin 3.9 g/dL (3.4-5.0); Alkaline Phosphatase 103 U/L (45-117); BUN Blood Urea Nitrogen 8 mg/dL (7-18); Bicarbonate 24 mmol/L (21-32); Bilirubin Direct < 0.1 mg/dL (0-0.2); Bilirubin Total 0.2 mg/dL (0.2-1.0); Glucose Level 98 mg/dL (74-106); Lipase 81 U/L (73-393); Potassium 3.6 mmol/L (3.5-5.1); Protein, Total 7.8 g/dL (6.4-8.2); Sodium Level 139 mmol/L (136-145); Troponin (Emerg Dept Use Only) < 0.02 ng/mL (0.0-0.045)
[2021-04-18] MEDS ORDERED: MORPHINE 4 MG/ML SYR ONE (17:32)
[2021-04-18] MEDS ORDERED: ONDANSETRON 4 MG/2 ML VIAL ONE (17:32)
[2021-04-18] MEDS ORDERED: DIPHENHYDRAMINE 50 MG/ML VIAL ONE (18:42)
[2021-04-18] MEDS ORDERED: dexAMETHasone 10 MG/ML VIAL ONE (18:42)
[2021-04-18] MEDS ORDERED: FAMOTIDINE 20 MG/2 ML VIAL IV ONE (18:43)
--- NOTE | 2021-04-18 18:57 | RAD REPORT ---
EXAM DESCRIPTION: CT - Chest For Pe Angio - 04/18/2021 6:34 pm CLINICAL HISTORY: Chest pain COMPARISON: None. TECHNIQUE: Dynamically enhanced axial 3 mm thick images of the chest were obtained during administra tion of <100> mL Isovue 370 IV contrast. Coronal and oblique reconstruction images were generated and reviewed. Exam utilizes a protocol for optimal evaluation of pulmonary arterial tree. Maximum intensity projections 3D imaging was utilized All CT scans are performed using dose optimization technique as appropriate and may include automated exposure control or mA/KV adjustment according to patient size. FINDINGS: A pulmonary embolus is not seen. A thoracic aortic aneurysm is not noted. A pleural effusion is not seen. A pericardial effusion is not seen. A lung consolidation is not present. IMPRESSION: Negative for a pulmonary embolism.
--- NOTE | 2021-04-18 19:00 | RAD REPORT ---
EXAM DESCRIPTION: CT - Abdomen Pelvis W Contrast - 04/18/2021 6:34 pm CLINICAL HISTORY: Abdominal pain COMPARISON: 2019 TECHNIQUE: Computed axial tomography of the abdomen pelvis was obtained. 100 cc Isovue-300 was admin istered intravenously. Oral contrast was not requested which limits evaluation of bowel. All CT scans are performed using dose optimization technique as appropriate and may include automated exposure control or mA/KV adjustment according to patient size. FINDINGS: The liver, spleen, pancreas, adrenal and kidneys appear unremarkable. There is no evidence of diverticulitis. Normal appendix 2.1 centimeter right ovarian cyst without significant free fluid Tiny umbilical hernia IMPRESSION: 2.1 centimeter right ovarian cyst without significant free fluid
--- NOTE | 2021-04-18 20:05 | ER ---
Nurse's Notes [facility] Name: Bethany Duarte Age: 35 yrs Sex: Female : 1985 Arrival Date: 04/18/2021 Time: 16:28 Bed 17 Private MD: Diagnosis: Chest pain, unspecified Presentation: 04/18 16:36 Chief complaint: Patient states: "I have a lot of chest pain and on this L side of my ss back" Pt reports pain had started a few days ago, but went away and now it's getting worse. Pt reports that upper L back is painful to touch.". Coronavirus screen: Vaccine status:. Ebola Screen: Patient denies exposure to infectious person. Patient denies travel to an Ebola-affected area in the 21 days before illness onset. Initial Sepsis Screen: Does the patient meet any 2 criteria? No. Patient's initial sepsis screen is negative. Does the patient have a suspected source of infection? No. Patient's initial sepsis screen is negative. Risk Assessment: Do you want to hurt yourself or someone else? Patient reports no desire to harm self or others. Onset of symptoms was April 16, 2021. 16:36 Method Of Arrival: Ambulatory ss 16:36 Acuity: SHERLYN 3 ss Historical: - Allergies: 16:38 Codeine; ss 16:38 Iodine; ss 16:38 Latex, Natural Rubber; ss - PMHx: 16:38 Asthma; Bipolar disorder; Ovarian cysts; ss - PSHx: 16:38 section; L breast biopsy; ss - Immunization history:: Client reports receiving the 2nd dose of the Covid vaccine. - Social history:: Smoking status: Patient reports the use of cigarette tobacco products, denies chronic smoking, but will smoke occasionally. Screenin:57 Abuse screen: Denies threats or abuse. Denies injuries from another. Nutritional tr6 screening: No deficits noted. Tuberculosis screening: No symptoms or risk factors identified. Fall Risk None identified. Assessment: 16:56 General: Appears uncomfortable, obese, Behavior is cooperative, appropriate for age, tr6 anxious, crying. Pain: Complains of pain in upper chest Pain radiates to back Pain began gradually, Noted to be grimacing, resistant to movement, pain increases with touch and movement. Neuro: No deficits noted. Cardiovascular: Rhythm is sinus rhythm. Respiratory: No deficits noted. GI: No deficits noted. : No deficits noted. EENT: No deficits noted. Derm: No deficits noted. Musculoskeletal: No deficits noted. 20:25 Reassessment: pt ambulated out. gait even and steady. no c/o at pain at this time. zb Vital Signs: 16:36 Resp 18; Weight 90.72 kg; Height 5 ft. 2 in. (157.48 cm); Pain 8/10; ss 16:39 BP 127 / 80; Pulse 93; Temp 98.5(TE); Pulse Ox 100% on R/A; ss 16:58 BP 117 / 73; Pulse 114; Resp 18; Pulse Ox 100% on R/A; tr6 16:36 Body Mass Index 36.58 (90.72 kg, 157.48 cm) ED Course: 16:28 Patient arrived in ED. mr 16:28 Panfilo Flor PA is PHCP. [facility] 16:28 Rudi Palacios MD is Attending Physician. [facility] 16:37 Triage completed. ss 16:38 Arm band placed on right wrist. ss 16:44 Veronica Stout, WALLACE is Primary Nurse. tr6 16:55 Appears tearful. tr6 16:55 Inserted saline lock: 18 gauge in right antecubital area, using aseptic technique. tr6 Blood collected. 16:57 Patient has correct armband on for positive identification. Placed in gown. Bed in low mh5 position. Call light in reach. Side rails up X 1. Warm blanket given. Pillow given. groundwater monitoring technician on. Pulse ox on. NIBP on. 16:57 Diet: Patient is NPO. tr6 16:57 Initial lab(s) drawn, by ED staff, sent to lab. Urine collected: clean catch specimen, mh5 clear. 16:57 No provider procedures requiring assistance completed. Patient maintains SpO2 tr6 saturation greater than 95% on room air. 16:58 EKG done, by ED staff, reviewed by Panfilo HUNT. mh5 16:58 Basic Metabolic Panel Sent. mh5 16:58 CBC with Diff Sent. mh5 16:59 Hepatic Function Sent. mh5 16:59 Lipase Sent. mh5 16:59 Troponin (emerg Dept Use Only) Sent. mh5 18:04 US Abdomen Limited In Process Unspecified. EDMS 18:34 CT Chest For PE Angio In Process Unspecified. EDMS 18:35 CT Abd/Pelvis - IV Contrast Only In Process Unspecified. EDMS 20:25 IV discontinued, intact, bleeding controlled, No redness/swelling at site. Pressure zb dressing applied. Administered Medications: 17:15 Drug: morphine 4 mg Route: IVP; Site: right antecubital; tr6 19:09 Follow up: Response: No adverse reaction tr6 17:15 Drug: Zofran (Ondansetron) 4 mg Route: IVP; Site: right antecubital; tr6 19:09 Follow up: Response: No adverse reaction tr6 18:30 Drug: Decadron - Dexamethasone 10 mg Route: IVP; Site: left wrist; tr6 19:09 Follow up: Response: No adverse reaction tr6 18:30 Drug: Pepcid (famotidine) 20 mg Route: IVP; Site: left wrist; tr6 19:09 Follow up: Response: No adverse reaction tr6 18:30 Drug: diphenhydrAMINE 25 mg Route: IVP; Site: left wrist; tr6 19:09 Follow up: Response: No adverse reaction tr6 Outcome: 20:04 Discharge ordered by . neeraj 20:25 Discharged to home ambulatory. zb 20:25 Condition: stable 20:25 Discharge instructions given to patient, Instructed on discharge instructions, follow up and referral plans. medication usage, Demonstrated understanding of instructions, follow-up care, medications, Prescriptions given X 1. 20:26 Patient left the ED. zb Signatures: Dispatcher [employer] EDMS Panfilo Flor PA PA jmm Rivera, Mary mr Smirch, Shelby, RN RN ss Martinez, Maria Francisca Murguia RN RN zb Ramnanan, Tiffany, RN RN tr6 Corrections: (The following items were deleted from the chart) 17:02 16:56 Pain: Complains of pain in substernal Pain radiates to back Pain began gradually, tr6 tr6
--- NOTE | 2021-04-18 20:05 | EDPHYS ---
Physician Documentation [facility] Name: Bethany Duarte Age: 35 yrs Sex: Female : 1985 Arrival Date: 04/18/2021 Time: 16:28 Bed 17 Private MD: ED Physician Rudi Palacios HPI: 04/18 16:43 This 35 yrs old Female presents to ER via Ambulatory with complaints of Chest jmm Pain, Back Pain. 16:43 The patient or guardian reports chest pain that is located primarily in the substernal jmm area. The pain radiates to left back. Associated signs and symptoms: Pertinent negatives: abdominal pain, cough, lower extremity swelling, lightheadedness, nausea, near syncope, palpitations. The chest pain is described as aching. Duration: The patient or guardian reports a single episode, that is still ongoing. Duration: The patient or guardian reports a single episode. Patient states pain began 2 days ago worsening today.. Historical: - Allergies: 16:38 Codeine; ss 16:38 Iodine; ss 16:38 Latex, Natural Rubber; ss - PMHx: 16:38 Asthma; Bipolar disorder; Ovarian cysts; ss - PSHx: 16:38 section; L breast biopsy; ss - Immunization history:: Client reports receiving the 2nd dose of the Covid vaccine. - Social history:: Smoking status: Patient reports the use of cigarette tobacco products, denies chronic smoking, but will smoke occasionally. ROS: 16:43 Constitutional: Negative for fever, chills, and weight loss. jmm 16:43 Cardiovascular: Positive for chest pain. 16:43 Back: Positive for radiated pain. 16:43 All other systems are negative. Exam: 16:43 Constitutional: This is a well developed, well nourished patient who is awake, alert, jmm and in no acute distress. Head/Face: atraumatic. Eyes: EOMI, no conjunctival erythema appreciated ENT: Moist Mucus Membranes Neck: Trachea midline, Supple Chest/axilla: Normal chest wall appearance and motion. Cardiovascular: Regular rate and rhythm. No edema appreciated Respiratory: Normal respirations, no respiratory distress appreciated Abdomen/GI: Non distended, soft Back: Normal ROM Skin: General appearance color normal MS/ Extremity: Moves all extremities, no obvious deformities appreciated, no edema noted to the lower extremities Neuro: Awake and alert, normal gait Psych: Behavior is normal, Mood is normal, Patient is cooperative and pleasant Vital Signs: 16:36 Resp 18; Weight 90.72 kg; Height 5 ft. 2 in. (157.48 cm); Pain 8/10; ss 16:39 BP 127 / 80; Pulse 93; Temp 98.5(TE); Pulse Ox 100% on R/A; ss 16:58 BP 117 / 73; Pulse 114; Resp 18; Pulse Ox 100% on R/A; tr6 16:36 Body Mass Index 36.58 (90.72 kg, 157.48 cm) ss MDM: 16:43 Patient medically screened. [facility] 20:03 Data reviewed: vital signs, nurses notes. Counseling: I had a detailed discussion with neeraj the patient and/or guardian regarding: the historical points, exam findings, and any diagnostic results supporting the discharge/admit diagnosis, lab results, radiology results, the need for outpatient follow up, to return to the emergency department if symptoms worsen or persist or if there are any questions or concerns that arise at home. ED course: Patient is alert and nontoxic in appearance in the ER. I discussed all labs and imaging studies with the patient. Patient will follow up with their primary care provider. Patient understood and agrees with plan of care.. 04/18 16:49 Order name: Basic Metabolic Panel; Complete Time: 17:32 [facility] 04/18 16:49 Order name: CBC with Diff; Complete Time: 17:23 [facility] 04/18 16:49 Order name: Hepatic Function; Complete Time: 17:32 [facility] 04/18 16:49 Order name: Lipase; Complete Time: 17:32 [facility] 04/18 16:50 Order name: Troponin (emerg Dept Use Only); Complete Time: 17:32 [facility] 04/18 17:05 Order name: Urine Dipstick-Ancillary; Complete Time: 17:10 [facility] 04/18 17:33 Order name: US Abdomen Limited [facility] 04/18 17:35 Order name: CT Chest For PE Angio; Complete Time: 19:01 [facility] 04/18 17:35 Order name: CT Abd/Pelvis - IV Contrast Only; Complete Time: 19:04 [facility] 04/18 16:49 Order name: IV Saline Lock; Complete Time: 16:55 [facility] 04/18 16:49 Order name: Labs collected and sent; Complete Time: 16:55 [facility] 04/18 16:49 Order name: Urine Dipstick-Ancillary (obtain specimen); Complete Time: 16:58 [facility] 04/18 16:50 Order name: EKG - Nurse/Tech; Complete Time: 16:55 [facility] Administered Medications: 17:15 Drug: morphine 4 mg Route: IVP; Site: right antecubital; tr6 19:09 Follow up: Response: No adverse reaction tr6 17:15 Drug: Zofran (Ondansetron) 4 mg Route: IVP; Site: right antecubital; tr6 19:09 Follow up: Response: No adverse reaction tr6 18:30 Drug: Decadron - Dexamethasone 10 mg Route: IVP; Site: left wrist; tr6 19:09 Follow up: Response: No adverse reaction tr6 18:30 Drug: Pepcid (famotidine) 20 mg Route: IVP; Site: left wrist; tr6 19:09 Follow up: Response: No adverse reaction tr6 18:30 Drug: diphenhydrAMINE 25 mg Route: IVP; Site: left wrist; tr6 19:09 Follow up: Response: No adverse reaction tr6 Disposition Summary: 04/18/21 20:04 Discharge Ordered Location: Home [facility] Condition: Stable [facility] Diagnosis - Chest pain, unspecified [facility] Followup: [facility] - With: Private Physician - When: 2 - 3 days - Reason: Recheck today's complaints, Continuance of care, Re-evaluation by your physician Discharge Instructions: - Discharge Summary Sheet [facility] - Nonspecific Chest Pain, Adult [facility] Forms: - Medication Reconciliation Form [facility] - Thank You Letter [facility] - Antibiotic Education [facility] - Prescription Opioid Use [facility] Prescriptions: - orphenadrine citrate 100 mg Oral Tablet Sustained Release - take 1 tablet by ORAL route 2 times per day As needed; 20 tablet; Refills: 0, [facility] Product Selection Permitted Signatures: Dispatcher [employer] Panfilo Solorzano PA PA jmm Smirch, Shelby RN RN ss Veronica Stout RN RN tr6
[2021-04-18 20:36] VITALS: TEMP 98.5; O2SAT 100
[2021-04-18 20:37] VITALS: BP 117/73
--- NOTE | 2021-04-21 10:10 | RAD REPORT ---
EXAM DESCRIPTION: US - Abdomen Exam Limited - 04/18/2021 6:04 pm CLINICAL HISTORY: Abdominal pain. COMPARISON: None. FINDINGS: The gallbladder wall is not thickened. A gallstone is not seen. The biliary tree is normal in caliber. The spleen measures 10 cm. IMPRESSION: Unremarkable exam
== END 2021-04-18 20:26 | disposition home or self-care (01) ==
LOC: ER 16:25
DX: R07.9 Chest pain, unspecified (principal); F17.210 Nicotine dependence, cigarettes, uncomplicated; Z88.5 Allergy status to narcotic agent; Z91.040 Latex allergy status; Z91.048 Other nonmedicinal substance allergy status
CPT/HCPCS: 93005; 85025; 80048; 36415; 80076; 81003; 84484; 83690; 71275; 74177; 76705; 99285; Q9967; J1200; J1100; J2405

== ENCOUNTER 2021-05-09 12:35 | Emergency (ER) | payer OTHER ==
[2021-05-09] MEDS ORDERED: METHYLPREDNISOLONE 125 MG INJ ONE (13:49)
[2021-05-09] MEDS ORDERED: FAMOTIDINE 20 MG/2 ML VIAL IV ONE (13:50)
[2021-05-09] MEDS ORDERED: DIPHENHYDRAMINE 50 MG/ML VIAL ONE (13:50)
[2021-05-09 14:11] LABS: Urine Blood Negative (Negative); Urine Glucose Negative (Negative); Urine Protein Negative (Negative); Urine Specific Gravity >=1.030 (1.005-1.030)
[2021-05-09 14:13] LABS: Absolute Lymphocytes (CBC) 2.5 K/uL (0.7-4.9); Basophils % 0.6 % (0-1.3); Hematocrit 40.6 % (36.0-45.0); Lymphocytes % 27.2 % (15.3-44.8); MPV 7.6 fL (7.6-11.3); RBC Red Blood Cell Count 4.64 M/uL (3.86-4.86)
[2021-05-09 14:17] LABS: Urine Specific Gravity/Preg >1.030 (1.005-1.030)
[2021-05-09] MEDS ORDERED: ONDANSETRON 4 MG/2 ML VIAL ONE (14:25)
--- NOTE | 2021-05-09 14:32 | RAD REPORT ---
EXAM DESCRIPTION: CT - Head Brain Wo Cont - 05/09/2021 2:19 pm CLINICAL HISTORY: Headache COMPARISON: None TECHNIQUE: Computed axial tomography of the head was obtained. IV contrast was not requested. All CT scans are performed using dose optimization technique as appropriate and may include automated exposure control or mA/KV adjustment according to patient size. FINDINGS: An intracranial bleed is not seen . The ventricles are normal in caliber. No extra-axial fluid collection is noted. . Fluid within the sinuses/ mastoids is not seen. IMPRESSION: No acute intracranial abnormality is seen. If patient's symptoms persist MRI of the bra in would be recommended.
--- NOTE | 2021-05-09 14:38 | RAD REPORT ---
EXAM DESCRIPTION: CTFacial Bones W Con Mpr05/09/2021 2:19 pm CLINICAL HISTORY: Right facial pain COMPARISON: None. TECHNIQUE: Computed axial tomography of the face obtained with coronal and sagittal reconstruction. 50 cc Isovue-[address] scans are performed using dose optimization technique as appropriate and may include automated exposure control or mA/KV adjustment according to patient size. FINDINGS: Visualized airway unremarkable. The parotid and submandibular glands appear unremarkable. The parapharyngeal fat is clear. The globes are intact Fluid within the sinuses/mastoids is not noted Tongue/lip rings noted IMPRESSION: No significant abnormality displayed .
[2021-05-09 14:43] LABS: ALT/SGPT 71 U/L (12-78); AST/SGOT 28 U/L (15-37); Albumin 3.7 g/dL (3.4-5.0); Alkaline Phosphatase 109 U/L (45-117); BUN Blood Urea Nitrogen 10 mg/dL (7-18); Bicarbonate 24 mmol/L (21-32); Bilirubin Total 0.4 mg/dL (0.2-1.0); Glucose Level 82 mg/dL (74-106); Potassium 3.5 mmol/L (3.5-5.1); Protein, Total 7.8 g/dL (6.4-8.2); Sodium Level 140 mmol/L (136-145)
[2021-05-09] MEDS ORDERED: KETOROLAC 30 MG/ML INJ ONE (15:07)
--- NOTE | 2021-05-09 15:20 | EDPHYS ---
Physician Documentation [facility] Name: Bethany Duarte Age: 35 yrs Sex: Female : 1985 Arrival Date: 05/09/2021 Time: 12:35 Bed 11 Private MD: ED Physician Wei Shepherd HPI: 05/09 13:01 This 35 yrs old Female presents to ER via Ambulatory with complaints of Ear jmm Pain - swelling. 13:01 The patient or guardian reports pain. Onset: The symptoms/episode began/occurred jmm gradually, 2 week(s) ago. Associated signs and symptoms: Loss of consciousness: This patient did not experience any loss of consciousness. This is a 35-year-old female with a history of asthma, bipolar that presents emerged department with complaints of right sided facial pain and ear pain beginning approximately 2 weeks ago. Patient states she saw her PCP at [facility] and prescribed her antibiotics and eardrops with no relief. Patient denies fever.. Historical: - Allergies: 12:46 Codeine; aa5 12:46 Iodine; aa5 12:46 Latex, Natural Rubber; aa5 - PMHx: 12:46 Asthma; Bipolar disorder; Ovarian cysts; aa5 - PSHx: 12:46 section; L breast biopsy; aa5 ROS: 13:01 Constitutional: Negative for fever, chills, and weight loss, Cardiovascular: Negative jmm for chest pain, palpitations, and edema, Respiratory: Negative for shortness of breath, cough, wheezing, and pleuritic chest pain. 13:01 ENT: Positive for ear pain. 13:01 All other systems are negative. Exam: 13:01 Constitutional: This is a well developed, well nourished patient who is awake, alert, jmm and in no acute distress. 13:01 Eyes: EOMI, no conjunctival erythema appreciated ENT: Moist Mucus Membranes Neck: Trachea midline, Supple Chest/axilla: Normal chest wall appearance and motion. Cardiovascular: Regular rate and rhythm. No edema appreciated Respiratory: Normal respirations, no respiratory distress appreciated Abdomen/GI: Non distended, soft Back: Normal ROM Skin: General appearance color normal MS/ Extremity: Moves all extremities, no obvious deformities appreciated, no edema noted to the lower extremities Neuro: Awake and alert, normal gait Psych: Behavior is normal, Mood is normal, Patient is cooperative and pleasant 13:01 Head/face: Pain on palpation of the right side of the face, beginning inferior to the right ear. Vital Signs: 12:46 BP 126 / 91; Pulse 100; Resp 20 S; Temp 97.3(TE); Pulse Ox 99% on R/A; aa5 13:02 BP 122 / 80; Pulse 97; Resp 16; Pulse Ox 100% ; vg1 14:30 BP 114 / 69; Pulse 72; Resp 16; Pulse Ox 100% ; vg1 15:30 BP 116 / 73; Pulse 68; Resp 16; Pulse Ox 100% ; vg1 MDM: 13:01 [facility]. [facility] 15:16 Data reviewed: vital signs, nurses notes. Counseling: I had a detailed discussion with harley the patient and/or guardian regarding: the historical points, exam findings, and any diagnostic results supporting the discharge/admit diagnosis, lab results, radiology results, the need for outpatient follow up, to return to the emergency department if symptoms worsen or persist or if there are any questions or concerns that arise at home. ED course: Patient is alert nontoxic in appearance in the ED. Imaging studies are negative for an acute process. Differential would still include TMJ, trigeminal neuralgia.. 05/09 13:08 Order name: CBC with Diff; Complete Time: 14:15 [facility] 05/09 13:08 Order name: CMP; Complete Time: 14:43 [facility] 05/09 13:03 Order name: CT Head Brain wo Cont; Complete Time: 14:43 [facility] 05/09 14:11 Order name: Urine Dipstick-Ancillary; Complete Time: 14:15 [facility] 05/09 14:12 Order name: Urine --Ancillary (enter results) 3 05/09 14:12 Order name: Urine --Ancillary; Complete Time: 14:17 [facility] 05/09 13:03 Order name: Saline Lock; Complete Time: 13:42 [facility] 05/09 13:03 Order name: Facial Bones W/ Con \T\ MPR CT; Complete Time: 14:43 [facility] 05/09 13:03 Order name: Urine Test (obtain specimen); Complete Time: 14:11 [facility] Administered Medications: 13:37 Drug: SOLU-Medrol (methylPrednisoLONE) 125 mg Route: IVP; Site: right antecubital; vg1 14:47 Follow up: Response: No adverse reaction vg1 13:39 Drug: Pepcid (famotidine) 20 mg Route: IVP; Site: right antecubital; vg1 14:47 Follow up: Response: No adverse reaction vg1 13:42 Drug: diphenhydrAMINE 50 mg Route: IVP; Site: right antecubital; vg1 14:47 Follow up: Response: No adverse reaction vg1 14:00 Drug: Zofran (Ondansetron) 4 mg Route: IVP; Site: right antecubital; vg1 14:48 Follow up: Response: No adverse reaction vg1 14:45 Drug: Ketorolac 30 mg Route: IVP; Site: right antecubital; vg1 15:52 Follow up: Response: No adverse reaction; Pain is decreased vg1 Disposition: 16:33 Co-signature as Attending Physician, Wei Shepherd MD I agree with the assessment and kdr plan of care. Disposition Summary: 05/09/21 15:20 Discharge Ordered Location: Home [facility] Condition: Stable jm Diagnosis - Facial Pain [facility] - With: Constantin Bowman MD - When: 2 - 3 days - Reason: Recheck today's complaints, Continuance of care, Re-evaluation by your physician [facility]up[facility] - With: Daron Gorman MD - When: 2 - 3 days - Reason: Recheck today's complaints, Continuance of care, Re-evaluation by your physician [facility]up: [facility] - With: Jose Alfredo Abdi MD - When: 2 - 3 days - Reason: Recheck today's complaints, Continuance of care, Re-evaluation by your physician Discharge Instructions: - Discharge Summary Sheet jmm - Temporomandibular Joint Syndrome jmm - Trigeminal Neuralgia [facility] Forms: - Medication Reconciliation Form jm - Thank You Letter jm - Antibiotic Education jmm - Prescription Opioid Use [facility] Prescriptions: - gabapentin 100 mg Oral capsule - take 1 capsule by ORAL route once daily; 90 capsule; Refills: 0, Product m Selection Permitted Signatures: Dispatcher [employer] Wei Urena MD MD kdr Mickail, Joel, PA PA m Yanique Bhagat RN RN aa5 Melquiades, Kaylynn, RN RN vg1
--- NOTE | 2021-05-09 15:20 | ER ---
Nurse's Notes [facility] Name: Bethany Duarte Age: 35 yrs Sex: Female : 1985 Arrival Date: 05/09/2021 Time: 12:35 Bed 11 Private MD: Diagnosis: Facial Pain Presentation: 05/09 12:46 Chief complaint: Patient states: right ear pain, pt states "I've been taking ear drops aa5 for about a week now and it's not getting better". Coronavirus screen: At this time, the client does not indicate any symptoms associated with coronavirus-19. Ebola Screen: Patient negative for fever greater than or equal to 101.5 degrees Fahrenheit, and additional compatible Ebola Virus Disease symptoms. Initial Sepsis Screen: Does the patient meet any 2 criteria? HR > 90 bpm. Does the patient have a suspected source of infection? No. Patient's initial sepsis screen is negative. Risk Assessment: Do you want to hurt yourself or someone else? Patient reports no desire to harm self or others. Onset of symptoms was April 2021. 12:46 Method Of Arrival: Ambulatory aa5 12:46 Acuity: SHERLYN 4 aa5 13:12 Acuity: SHERLYN 3 iw Historical: - Allergies: 12:46 Codeine; aa5 12:46 Iodine; aa5 12:46 Latex, Natural Rubber; aa5 - PMHx: 12:46 Asthma; Bipolar disorder; Ovarian cysts; aa5 - PSHx: 12:46 section; L breast biopsy; aa5 Screenin:03 Abuse screen: Denies threats or abuse. Nutritional screening: No deficits noted. vg1 Tuberculosis screening: No symptoms or risk factors identified. Fall Risk No fall in past 12 months (0 pts). No secondary diagnosis (0 pts). IV access (20 points). Ambulatory Aid- None/Bed Rest/Nurse Assist (0 pts). Gait- Normal/Bed Rest/Wheelchair (0 pts) Mental Status- Oriented to own ability (0 pts). Total Sanz Fall Scale indicates No Risk (0-24 pts). Assessment: 13:01 General: Appears in no apparent distress. uncomfortable, Behavior is cooperative, vg1 anxious, crying. Pain: Complains of pain in right ear and right side of jaw Pain currently is 10 out of 10 on a pain scale. Pain began about a week ago Noted to be crying, grimacing, moaning. Neuro: Level of Consciousness is awake, alert, obeys commands, Oriented to person, place, time, situation. Cardiovascular: Patient's skin is warm and dry. Respiratory: Airway is patent Respiratory effort is even, unlabored. EENT: Ear canal clear on right ear. Derm: Skin is intact, is healthy with good turgor. Musculoskeletal: Circulation, motion, and sensation intact. 14:41 Reassessment: Received VO from Chacho HUNT to administer Toradol 30 mg IVP x1. vg1 14:48 Reassessment: Patient appears in no apparent distress at this time. No changes from vg1 previously documented assessment. Patient and/or family updated on plan of care and expected duration. Pain level reassessed. Patient is alert, oriented x 3, equal unlabored respirations, skin warm/dry/pink. 15:51 Reassessment: Patient appears in no apparent distress at this time. No changes from vg1 previously documented assessment. Patient and/or family updated on plan of care and expected duration. Pain level reassessed. Patient is alert, oriented x 3, equal unlabored respirations, skin warm/dry/pink. Vital Signs: 12:46 BP 126 / 91; Pulse 100; Resp 20 S; Temp 97.3(TE); Pulse Ox 99% on R/A; aa5 13:02 BP 122 / 80; Pulse 97; Resp 16; Pulse Ox 100% ; vg1 14:30 BP 114 / 69; Pulse 72; Resp 16; Pulse Ox 100% ; vg1 15:30 BP 116 / 73; Pulse 68; Resp 16; Pulse Ox 100% ; vg1 ED Course: 12:35 Patient arrived in ED. as 12:46 Arm band placed on. aa5 12:48 Triage completed. aa5 12:49 [facility] 12:49 Wei Shepherd MD is Attending Physician. [facility] 12:52 Kaylynn Arnett, WALLACE is Primary Nurse. vg1 13:03 Patient has correct armband on for positive identification. Call light in reach. vg1 13:33 Initial lab(s) drawn, by ED staff, sent to lab. Inserted saline lock: 20 gauge in right vg1 antecubital area, using aseptic technique. Blood collected. 14:18 CT Head Brain wo Cont In Process Unspecified. EDMS 14:19 Facial Bones W/ Con \\T\\ MPR CT In Process Unspecified. EDMS 15:19 Constantin Bowman MD is Referral Physician. jmm 15:19 Daron Gorman MD is Referral Physician. jmm 15:19 Jose Alfredo Abdi MD is Referral Physician. [facility] 15:51 No provider procedures requiring assistance completed. IV discontinued, intact, vg1 bleeding controlled, No redness/swelling at site. Pressure dressing applied. Administered Medications: 13:37 Drug: SOLU-Medrol (methylPrednisoLONE) 125 mg Route: IVP; Site: right antecubital; vg1 14:47 Follow up: Response: No adverse reaction vg1 13:39 Drug: Pepcid (famotidine) 20 mg Route: IVP; Site: right antecubital; vg1 14:47 Follow up: Response: No adverse reaction vg1 13:42 Drug: diphenhydrAMINE 50 mg Route: IVP; Site: right antecubital; vg1 14:47 Follow up: Response: No adverse reaction vg1 14:00 Drug: Zofran (Ondansetron) 4 mg Route: IVP; Site: right antecubital; vg1 14:48 Follow up: Response: No adverse reaction vg1 14:45 Drug: Ketorolac 30 mg Route: IVP; Site: right antecubital; vg1 15:52 Follow up: Response: No adverse reaction; Pain is decreased vg1 Outcome: 15:20 Discharge ordered by MD. [facility] 15:52 Discharged to home ambulatory. vg1 15:52 Condition: stable 15:52 Discharge instructions given to patient, Instructed on discharge instructions, follow up and referral plans. medication usage, Demonstrated understanding of instructions, follow-up care, medications, Prescriptions given X 1. 15:52 Patient left the ED. vg1 Signatures: Dispatcher [employer] EDMS Panfilo Flor PA PA jmm Martinez, Amelia as Williams, Irene, RN Yanique Perez RN RN Kaylynn Adler RN RN vg1
[2021-05-09 17:02] VITALS: TEMP 97.3
[2021-05-09 17:03] VITALS: O2SAT 100
[2021-05-09 17:06] VITALS: BP 116/73
== END 2021-05-09 15:52 | disposition home or self-care (01) ==
LOC: ER 12:35
DX: R51.9 Headache, unspecified (principal); F31.9 Bipolar disorder, unspecified; Z88.5 Allergy status to narcotic agent; Z91.040 Latex allergy status; Z91.048 Other nonmedicinal substance allergy status
CPT/HCPCS: 85025; 36415; 81025; 81003; 80053; 70450; 70487; 76377; 96375; 96374; 99284; Q9967; J1200; J2930; J2405

== ENCOUNTER 2021-07-28 17:28 | Emergency (ER) | payer OTHER ==
--- OUTSIDE RECORDS SUMMARY | 2021-07-28 17:33 | XMS REPORT | Continuity of Care Document ---
:1985 Author Organization [facility] t Address [address] [place] [address] Care Team Providers Name Role Phone Apoorva Camilo Primary Care Physician ANA JOSEPH Attending Clinician Unavailable Edinson NG Gene Attending Clinician Philip NG Cam Attending Clinician Kirsten GRIGGS Attending Clinician Ab NG Attending Clinician Fanny Arnett Admitting Clinician Unavailable Ab NG Admitting Clinician Payers Payer Name Policy Type Policy Number Effective Date Expiration Date Bre maria [facility] STAR [id number] 2021 00:00:00 PLUS Problems Condition Condition Condition Status Onset Resolution Last Treating Co mments Source Name Details Category Date Date Treatment Clinician Date Morbid Morbid Disease Active Univers obesity obesity 14 ity of with body with body 00:00: [place] mass index mass index 00 Me dical of of Branch 40.0-49.9 40.0-49.9 Uterine Uterine Disease Active Univers size-date size-date 04-23 [place]y of [place] in third 00 Me dical trimester trimester Bran ch Excessive Excessive Disease Active Uni vers weight weight 9-01 ity of gain gain 00:00: [place] during during 00 Medical Bran ch in third in third trimester trimester Round Round Disease Active 2020-0 Univers ligament ligament 4-30 ity of pain pain 00:00: [place] 00 Medical Branch Obesity Obesity Disease Active 2020-0 Univers (BMI (BMI 402 ity of 30-39.9) 30-39.9) 00:00: [place] 00 Medical Branch Previous Previous Disease Active 2020-0 Unive rs 4 ity of section section 00:00: [place] 00 Medical Branch History of History of Disease Active 2020-0 U nivers 4- ity of delivery delivery 00:00: [place] 00 Medical Branch 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 Univers intermitte intermitte 11-22 it y of nt asthma nt asthma 00:[place] without without 00 Medical complicati complicati Br anch on on Rh Rh Disease Active 2019-0 Univers negative negative 11-22 ity of state in state in 00:00: [place] antepartum antepartum 00 Me dical period period Branch History of History of Disease Active 2020-0 U nivers depression depression 4- it y of 00:00: [place] 00 Medical Branch Allergies, Adverse Reactions, Alerts Allergy Allergy Status Severity Reaction(s) Onset Inactive Treating Comm ents Source Name Type Date Date Clinician Latex Propensi Active Anaphylaxis 2020-0 Uni vers ty to 11-22 ity of adverse 00:00: [place] reaction 00 Medical s Branch CODEINE DRUG Active Anaphylaxis 2019-0 Univ ers INGREDI 4 ity of 00:00: [place] 00 Medical Branch IODINE DRUG Active N/V 2019-0 Univers INGREDI 11-22 ity of 00:00: [place] 00 Medical Branch LATEX DRUG Active Anaphylaxis 2020-0 Unive rs INGREDI 4 ity of 00:00: [place] 00 Medical Branch Codeine Propensi Active Anaphylaxis 2020-0 Un brayan ty to 4 ity of adverse 00:00: [place] reaction 00 Medical s Branch Iodine Propensi Active Rash 2020-0 Univers ty to 4 ity of adverse 00:00: [place] reaction 00 Medical s Branch phenylep DA Active SV [facility] hrine 8- [facility] HCl 00:00: [facility] 00 l [facility] iodine DA Active PA [facility] 8-26 [place] 00:00: [facility] 00 [facility] codeine DA Active SV 2019-0 [facility] 8-26 [facility] 00:00: [facility] chlorphe DA Active SV 2019-0 [facility] niramine 8 [facility] 00:00: [facility] latex DA Active PA 2019-0 [facility] 8-26 [place] 00:00: [facility] phenylep DA Active SV STATES SHE 2019-0 [facility] hrine STOPS 8 [place] HCl BREATHING 00:00: [facility] WITH 00 l [facility] iodine DA Active PA RASH,VOMITS 2019-0 [facility] 8-26 [place] 00:00: [facility] codeine DA Active SV stop 2019-0 [facility] breathing 8-26 [place] 00:00: [facility] chlorphe DA Active SV STATES SHE 2019-0 [facility] niramine STOPS 04-17 [place] BREATHING 00:00: [facility] WITH 00 l [facility] latex DA Active PA HIVES 2019-0 [facility] 8- [facility] 00:00: [facility] phenylep DA Active SV 2019-0 [facility] hrine 8-06 [place] HCl 00:00: [facility] iodine DA Active PA 2019-0 [facility] 8-06 [place] 00:00: [facility] codeine DA Active SV 2019-0 [facility] 8-06 [place] 00:00: [facility] chlorphe DA Active SV 2019-0 [facility] niramine 8-06 [place] 00:00: [facility] latex DA Active PA 2019-0 [facility] 8-06 [place] 00:00: [address] phenylep DA Active SV 2018-0 [facility] hrine 6-11 [place] HCl 00:00: [address] iodine DA Active PA 2018-0 [facility] 6-11 [place] 00:00: [address] codeine DA Active SV 2018-0 [facility] 6-11 [place] 00:00: [facility] chlorphe DA Active SV 2018-0 [facility] niramine 6-11 Valley 00:00: [address] latex DA Active PA 2018-0 [facility] 6-11 Valley 00:00: [address] Social History Social Habit Start Date Stop Date Quantity Comments Source Exposure to Not sure [facility] SARS-CoV-2 (event) [facility] History of tobacco Cigarette Smoker University of use [place] [facility] History SDOH University o f Alcohol Frequency [place] M edical Branch History [facility] University o f Alcohol Std Drinks [place] [facility] History [facility] o f Alcohol Binge [place] Medic al Branch Alcohol intake 2021-07-15 2021-07-15 Current drinker Unive rsity of 00:00:00 00:00:00 of alcohol [place] Medical (finding) Branch Tobacco use and 2021-05-02 2021-05-02 Never used Universit y of exposure 00:00:00 00:00:00 [facility] Branch Cigarettes smoked 2021-05-02 2021-05-02 Univers ity of current (pack per 00:00:00 00:00:00 [facility] [place] ed) - Reported Branch Alcohol Comment 2021-05-02 2021-05-02 social Universit y of 00:00:00 00:00:00 [facility] Sex Ass[birth year] At [birth year] Universit y of 00:00:00 00:00:00 [facility] Smoking Status Start Date Stop Date Source Current every day smoker 2021-05-02 00:00:00 Uni versity of [facility] Branch Medications Ordered Filled Start Stop Current Ordering Indication Dosage Frequency Signature Comments Components Source Medication Medication Date Date Medication? Clinician (SIG) Name Name [facility] 2020-08- Yes [id number] 650mg Take 1 Univers en (TYLENOL 09-14 [id number] tablet by ity of ARTHRITIS 00:00: 05:59 [place] PAIN[place] 650 00 :00 (three) Medical mg CR times Branch tablet daily as needed for Pain for up to 14 days. [facility] 2020-08- Yes [id number] 650mg Take 1 Univers en (TYLENOL 09-14 [id number] tablet by ity of ARTHRITIS 00:00: 05:59 [place] PA[place] 650 00 :00 (three) Medical mg CR times Branch tablet daily as needed for Pain for up to 14 days. [facility] 2020-08- Yes [id number] 650mg Take 1 Univers en (TYLENOL 09-14 [id number] tablet by ity of ARTHRITIS 00:00: 05:59 [place] PAIN) 650 00 :00 (three) Medical mg CR times Branch tablet daily as needed for Pain for up to 14 days. OMEPRAZOLE 2020-08 Yes [id number] TAKE 1 Univers 40 mg 1-10 CAPSULE BY ity of capsule 00:00: MOUTH [place] 00 EVERY DAY Medical Branch OMEPRAZOLE 2020-08 Yes [id number] TAKE 1 Univers 40 mg 1-10 CAPSULE BY ity of capsule 00:00: MOUTH [place] 00 EVERY DAY Medical Branch OMEPRAZOLE 2020-08 Yes [id number] TAKE 1 Univers 40 mg 1-10 CAPSULE BY ity of capsule 00:00: MOUTH [place] 00 EVERY DAY Medical Branch naproxen 2020-08 Yes [id number] 500mg Take 1 Univers 500 mg 1-01 105 tablet by ity of tablet 00:00: mouth 2 [place] 00 (two) Medical times Branch daily as needed for Pain (scale 4-6). naproxen 2020-08 Yes [id number] 500mg Take 1 Univers 500 mg 1-01 105 tablet by ity of tablet 00:00: mouth 2 [place] 00 (two) Medical times Branch daily as needed for Pain (scale 4-6). naproxen 2020-08 Yes [id number] 500mg Take 1 Univers 500 mg 1-01 105 tablet by ity of tablet 00:00: mouth 2 [place] 00 (two) Medical times Branch daily as needed for Pain (scale 4-6). acetaminoph 2020-08 Yes [id number] 1{tbl} Take 1 Un brayan en-codeine 0-04 tablet by ity of 300-30 mg 00:00: mouth [place] tablet 00 every 6 Medical (six) Branch hours as needed for Pain (scale 7-10). Indication s: acute pain acetaminoph 2020-08 Yes [id number] 1{tbl} Take 1 Un brayan en-codeine 0-04 tablet by ity of 300-30 mg 00:00: mouth [place] tablet 00 every 6 Medical (six) Branch hours as needed for Pain (scale 7-10). Indication s: acute pain acetaminoph 2020-08 Yes [id number] 1{tbl} Take 1 Un brayan en-codeine 0-04 tablet by ity of 300-30 mg 00:00: mouth [place] tablet 00 every 6 Medical (six) Branch hours as needed for Pain (scale 7-10). Indication s: acute pain traZODone Yes 100mg Take 100 Uni vers 100 mg 9-30 mg by ity of tablet 15:07: mouth at [place] [address] bedtime. Medical Branch traZODone Yes 100mg Take 100 Uni vers 100 mg 9-30 mg by ity of tablet 15:07: mouth at [place] [address] bedtime. Medical Branch traZODone 0 Yes 100mg Take 100 Uni vers 100 mg 9-30 mg by ity of tablet 15:07: mouth at [place] [address] bedtime. Medical Branch ibuprofen Yes [id number] 800mg Take 1 U nivers 800 mg 9-30 tablet by ity of tablet 00:00: mouth 3 [place] 00 (three) Medical times Branch daily with meals. ibuprofen Yes [id number] 800mg Take 1 U nivers 800 mg 9-30 tablet by ity of tablet 00:00: mouth 3 [place] 00 (three) Medical times Branch daily with meals. ibuprofen Yes [id number] 800mg Take 1 U nivers 800 mg 9-30 tablet by ity of tablet 00:00: mouth 3 [place] 00 (three) Medical times Branch daily with meals. ciprofloxac Yes [id number] 4[drp] Place 4 Univers in-dexameth 9-17 Drops in ity of asone 00:00: right ear [place] 0.3-0.1 % 00 2 (two) Medical otic drops times Branch daily. ciprofloxac 2020-0 Yes [id number] 4[drp] Place 4 Univers in-dexameth 9-17 Drops in ity of asone 00:00: right ear [place] 0.3-0.1 % 00 2 (two) Medical otic drops times Branch daily. ciprofloxac Yes [id number] 4[drp] Place 4 Univers in-dexameth 9-17 Drops in ity of asone 00:00: right ear [place] 0.3-0.1 % 00 2 (two) Medical otic drops times Branch daily. fluticasone Yes Inhale. Uni vers propion/tasha 9-03 ity of meterol 09:31: [place] (ADVAIR 54 Medical DISKUS Branch INHALE) fluticasone 2020-0 Yes Inhale. Uni vers propion/tasha 9-03 ity of meterol 09:31: [place] (ADVAIR 54 Medical DISKUS Branch INHALE) fluticasone 0 Yes Inhale. Uni vers propion/tasha 9-03 ity of meterol 09:31: [place] (ADVAIR 54 Medical DISKUS Branch INHALE) busPIRone 0 Yes Univers 15 mg 7-11 ity of tablet 00:00: [place] Medical [facility] busPIRone 0 Yes Univers 15 mg 7-11 ity of tablet 00:00: [place] [facility] busPIRone 0 Yes Univers 15 mg 7-11 ity of tablet 00:00: [place] [facility] foLIC acid 0 Yes Univers 1 mg tablet 6-30 ity of 00:00: [place] [facility] foLIC acid 0 Yes Univers 1 mg tablet 6-30 ity of 00:00: [place] [facility] foLIC acid Yes Univers 1 mg tablet 6-30 ity of 00:00: [place] Medical [facility] lamoTRIgine 0 Yes Univer s 100 mg 6-18 ity of tablet 00:00: [place] [facility] Branch lamoTRIgine 0 Yes Univer s 100 mg 6-18 ity of tablet 00:00: [place] [facility] lamoTRIgine 0 Yes Univer s 100 mg 6-18 ity of tablet 00:00: [place] Medical [facility] hydrOXYzine 0 Yes Univer s 10 mg 4-30 ity of tablet 00:00: [place] [facility] hydrOXYzine 0 Yes Univer s 10 mg 4-30 ity of tablet 00:00: [place] Medical [facility] hydrOXYzine 0 Yes Univer s 10 mg 4-30 ity of tablet 00:00: [place] Medical Branch CETIRIZINE 2019-1 Yes [id number] TAKE 1 Univers 10 mg 2-17 TABLET BY ity of tablet 00:00: MOUTH [place] EVERY DAY Medical Branch CETIRIZINE 2020-1 Yes [id number] TAKE 1 Univers 10 mg 2-17 TABLET BY ity of tablet 00:00: MOUTH [place] EVERY DAY Medical Branch CETIRIZINE 2020-1 Yes [id number] TAKE 1 Univers 10 mg 2-17 TABLET BY ity of tablet 00:00: MOUTH [place] EVERY DAY Medical Branch ferrous 2020-0 Yes [id number] 325mg Take 1 Un brayan sulfate 325 9-21 tablet by ity of mg (65 mg 00:00: mouth 2 [place] iron) 00 (two) Medical tablet times Branch daily. ibuprofen 2020-0 Yes [id number] 600mg Take 1 Univers 600 mg 9-21 tablet by ity of tablet 00:00: mouth [place] 00 every 6 Medical (six) Branch hours as needed (Pain). Take with food or milk. ferrous 2020-0 Yes [id number] 325mg Take 1 Un brayan sulfate 325 9-21 tablet by ity of mg (65 mg 00:00: mouth 2 [place] iron) 00 (two) Medical tablet times Branch daily. ibuprofen 2020-0 Yes [id number] 600mg Take 1 Univers 600 mg 9-21 tablet by ity of tablet 00:00: mouth [place] 00 every 6 Medical (six) Branch hours as needed (Pain). Take with food or milk. ferrous 2020-0 Yes [id number] 325mg Take 1 Un brayan sulfate 325 9-21 tablet by ity of mg (65 mg 00:00: mouth 2 [place] iron) 00 (two) Medical tablet times Branch daily. ibuprofen 2020-0 Yes [id number] 600mg Take 1 Univers 600 mg 9-21 tablet by ity of tablet 00:00: mouth [place] 00 every 6 Medical (six) Branch hours as needed (Pain). Take with food or milk. albuterol 2020-0 Yes [id number] 2{puff} Inhale 2 Univers 90 4-02 Puffs ity of mcg/actuati 00:00: every 6 [place] as on inhaler 00 (six) Medical hours as Branch needed for Wheezing, Shortness of Breath, Bronchospa sm or Chest tightness. albuterol 2020-0 Yes [id number] 2{puff} Inhale 2 Univers 90 4-02 Puffs ity of mcg/actuati 00:00: every 6 [place] as on inhaler 00 (six) Medical hours as Branch needed for Wheezing, Shortness of Breath, Bronchospa sm or Chest tightness. albuterol 2020-0 Yes [id number] 2{puff} Inhale 2 Univers 90 4-02 Puffs ity of mcg/actuati 00:00: every 6 [place] as on inhaler 00 (six) Medical hours as Branch needed for Wheezing, Shortness of Breath, Bronchospa sm or Chest tightness. Immunizations Ordered Filled Immunization Date Status Comments Sourc e Immunization Name Name Pneumococcal 13 2021-05-01 Completed Universit y of Conjugate, PCV13 00:00:00 [facility] dical (Prevnar 13) Branch Pneumococcal 13 2021-05-01 Completed Universit y of Conjugate, PCV13 00:00:00 [facility] dical (Prevnar 13) Branch Pneumococcal 13 2021-05-01 Completed Universit y of Conjugate, PCV13 00:00:00 [facility] dical (Prevnar 13) Branch SARS-COV-2 COVID-19 2021-02-11 Completed Unive rsity of MODERNA VACCINE 00:00:00 [facility] SARS-COV-2 COVID-19 2021-02-11 Completed Unive rsity of MODERNA VACCINE 00:00:00 [facility] SARS-COV-2 COVID-19 2021-02-11 Completed Unive rsity of MODERNA VACCINE 00:00:00 [facility] SARS-COV-2 COVID-19 2021-01-14 Completed Unive rsity of MODERNA VACCINE 00:00:00 [facility] SARS-COV-2 COVID-19 2021-01-14 Completed Unive rsity of MODERNA VACCINE 00:00:00 [facility] SARS-COV-2 COVID-19 2021-01-14 Completed Unive rsity of MODERNA VACCINE 00:00:00 [facility] Rho (d) Immune 2020-05-12 Completed University of Globulin 00:00:00 [facility] Rho (d) Immune 2020-05-12 Completed University of Globulin 00:00:00 [facility] Rho (d) Immune 2020-05-12 Completed University of Globulin 00:00:00 [facility] TDAP 2020-03-15 Completed University of 00:00:00 [facility] TDAP 2020-03-15 Completed University of 00:00:00 [facility] TDAP 2020-03-15 Completed University of 00:00:00 [facility] Rho (d) Immune 2020-03-01 Completed University of Globulin 00:00:00 [facility] Rho (d) Immune 2020-03-01 Completed University of Globulin 00:00:00 [facility] Rho (d) Immune 2020-03-01 Completed University of Globulin 00:00:00 [facility] Vital Signs Vital Name Observation Time Observation Value Comments Source Body height 2021-07-15 21:53:00 157.5 cm [facility] Body weight 2021-07-15 21:53:00 95.709 kg [facility] BMI 2021-07-15 21:53:00 38.59 kg/m2 [facility] Procedures This patient has no known procedures. Encounters Start End Encounter Admission Attending Care Care Encounter Source Date/Time Date/Time Type Type Clinicians Facility Department ID 2019-10-17 Inpatient [facility] ER [id number] [facility] 00:36:00 [id number] [facility] 2021-07-29 2021-07-29 Outpatient Yusuf JOSEPH [facility] [id number] Univers 13:40:00 13:40:00 ANA mccormick [facility] 2021-07-24 2021-07-24 [facility] [id number] Univers 00:00:00 00:00:00 [facility] [id number] ity of [facility] 4.2.7.2.686 [place] as ILENE?BLEA [phone] [address] OFFICE [facility] 2021-07-15 2021-07-15 Office [facility] [id number] Univers 15:21:19 16:54:12 Visit [facility] [id number] ity of [place] 4.2.7.2.686 [place] as ILENE?BLEA [phone] [address] OFFICE [facility] 2020-06-07 2020-06-07 Telephone Palacios [facility] 1.2.840.114 [id number] 00:00:00 00:00:00 Cam Clifton [id number] Ernest [id number] Professio [phone] 2020-05-29 2020-05-29 Telephone Philip [facility] [id number] 00:00:00 00:00:00 Cam [place] [id number] Ernest [id number] Professio [phone] [address] 2020-05-29 2020-05-29 Telephone Maureen Palacios [facility] [id number] 00:00:00 00:00:00 Cam [place] [id number] Ernest [id number] Professio [phone] [address] 2020-05-21 2020-05-21 [facility] [id number] 00:00:00 00:00:00 Sarah Beth Cl[place]ton [id number] Ernest 4.2.7.2.686 Professio [id number] [address] 2020-05-11 2020-05-13 [facility] AbALISTAIR 1.2.840.114 [id number] 15:48:00 11:55:00 Encounter Tiffany RUSSELL [id number] [facility] 4.2.7.2.686 [id number] [facility] 2020-05-10 2020-05-10 Telephone Maureen Palacios [facility] 1.2.840.114 [id number] 00:00:00 00:00:00 Cam [place] [id number] Ernest [id number] Professio [phone] [address] 2020-05-10 2020-05-10 Telephone Maureen Palcaios [facility] 1.2.840.114 [id number] 00:00:00 00:00:00 Cam [place] [id number] Ernest [id number] Professio [id number] [address] 2020-05-08 2020-05-08 Telephone Maureen Palacios [facility] 1.2.840.114 [id number] 00:00:00 00:00:00 Cam [place] [id number] Ernest [id number] Professio [phone] [address] 2020-05-06 2020-05-06 Routine Maureen Palacios [facility] [id number] 14:51:16 16:17:56 Cam Clifton [id number] Visit Ernest 4.2.7.2.686 Professio [id number] [address]al [address] Results Test Description Test Time Test Comments [...] URINESPECIMEN DESCRIPTION: CMCIndication for culture: Suprapubic PainUA [id number] 03:35:00 Test Item Value Reference Range Interpretation Comments UA RBC (test code = RBCU) 6-10 0-5 UA EPITHELIAL CELLS (test code = EPIU) 6-10 0-10 UA MUCUS (test code = MUCU) OCC NONE-FEW SOURCE: URINESPECIMEN DESCRIPTION: CMCIndication for culture: Suprapubic PainUA RFLX MICR CULT IF [id number] 03:35:00 Test Item Value Reference Range Interpretation [...] URINESPECIMEN DESCRIPTION: CMCIndication for culture: Suprapubic PainUA [id number] 03:35:00 Test Item Value Reference Range Interpretation Comments UA RBC (test code = RBCU) 6-10 0-5 UA EPITHELIAL CELLS (test code = EPIU) 6-10 0-10 UA MUCUS (test code = MUCU) OCC NONE-FEW SOURCE: URINESPECIMEN DESCRIPTION: CMCIndication for culture: Suprapubic PainUA RFLX MICR CULT IF [id number] 03:34:00 Test Item Value Reference Range Interpretation [...] URINESPECIMEN DESCRIPTION: CMCIndication for culture: Suprapubic PainUA [id number] 03:34:00 Test Item Value Reference Range Interpretation Comments UA RBC (test code = RBCU) 0-5 SOURCE: URINESPECIMEN DESCRIPTION: CMCIndication for culture: Suprapubic PainHCG [id number] 02:15:00 Test Item Value Reference Range Interpretation Comments HCG SERUM (test [id number] mIU/mL <5 Reporting U nits: code = [...] 11,500 - 289,00 012-16 weeks 18,300 - 137,96446-65 we eks 1,400 - 53,000(2nd Trimester)29-41 weeks 940 - 60,000(3r d Trimester) - US ABDOMEN [id number] 02:06:00 [place]: [facility] St: REG Name: SATHISHMARCE NIELSEN [facility] : 1985 Age/S: 34/F [address] Unit #: [id number] Loc: [place], [place] [address] Phys: Desiree Rodriguez MD Acct: [id number] Dis Date: Status: REG ER PHONE #: [phone] Exam Date: 10/17/2019114 FAX #: [phone] Reason: upper abd pain and tenderness EXAMS: CPT CODE: [id number] US ABDOMEN LTD 43591Vahekc ultrasound. History: First trimester . Vaginal bleeding. [...] are normal. PAGE 1 Signed Report (CONTINUED) [place]: [facility] St: REG Name: SATHISHMARCE NIELSEN [facility] : 1985 Age/S: 34/F [address] [facility] Unit #: [id number] Loc: [place], [place] [address] Phys: Desiree Rodriguez MD Acct: [id number] Dis Date: Status: REG ER PHONE #: [phone] Exam Date: 10/17/2019 0115 FAX #: [phone] Reason: upper abdpain and tenderness EXAMS: CPT CODE: [id number] US ABDOMEN LTD 61824 <Continued> Impression: No sonographic evidence of cholelithiasis or acute cholecystitis The appearance the liver is nonspecific but may reflect steatosis versus underlying parenchymal disease at 0206 Reported and signed by: JEAN BORRERO M.D. Facility ACR Accreditation for Ultrasound - September 2011 CC: Bentley Arnett MD; Desiree Rodriguez MD Technologist: ELSIE GAVIN RDMS Transcribed Date/Time/By: 10/17/2019 (020) : By: [email or web address] Orig Print D/T: S: 10/17/2019 (0200) PAGE 2 Signed Report- US PREG 1ST [id number] 02:06:00 [place]: [facility] St: REG Name: MARCE BOWER [facility] : 1985 Age/S: 34/F [address] [facility] Unit #: [id number] Loc: [place], [place] [address] Phys: Desiree Rodriguez MD Acct: [id number] Dis Date: Status: REG ER PHONE #: [phone] Exam Date: 10/17/2019 0115 FAX #: [phone] Reason: pelvic pain EXAMS: CPT CODE: [id number] US PREG 1ST TRIMTR 28198Uusaob ultrasound. History: First trimester . Vaginal bleeding. [...] are normal. PAGE 1 Signed Report (CONTINUED) [place]ers: [facility] St: REG Name: MARCE BOWER [facility] : 1985 Age/S: 34/F [address] Unit #: [id number] Loc: [place], [place] [address] Phys: Desiree Rodriguez MD Acct: [id number] Dis Date: Status: REG ER PHONE #: [phone] Exam Date: 10/17/2019 0115 FAX #: [phone] Reason: pelvic pain EXAMS: CPT CODE: [id number] US PREG 1ST TRIMTR 39468 <Continued> Impression: No sonographic evidence of cholelithiasis [...] By: [email or web address] Orig Print D/T: S: 10/17/2019 (0201) PAGE 2 Signed ReportBASIC METABOLIC [id number] 01:39:00 Test Item Value Reference Range Interpretation [...] 8.4 mg/dL 7.8-10.9 N CA) BASIC METABOLIC [id number] 01:30:00 Test Item Value Reference Range Interpretation [...] CA) 8.4 mg/dL 7.8-10.9 N CBC W/AUTO [id number] 01:10:00 Test Item Value Reference Range Interpretation [...] 0.00 K/mm3 0.00-0.20 N NRBC#) POC LACTIC [id number] 15:26:00 Test Item Value Reference Range Interpretation Comments POC LACTIC ACID (test code = 1.08 MMOL/L 0.40-2.00 N POCLAC) UA RFLX MICR CULT IF [id number] 14:14:00 Test Item Value Reference Range Interpretation [...] for culture: Sev. Sepsis-no other srcHEPATIC FUNCTION [id number] 14:01:00 Test Item Value Reference Range Interpretation [...] 45-117 N TOTAL (test code = ALKP) [id number] 14:01:00 Test Item Value Reference Range Interpretation [...] 0.00-0.05 H PROCAL) - XR CHEST 1 [id number] 13:43:00 FAX: Beto Montgomery MD [place]: ER St: REG FAX: Marcos Mayer FAX: Bentley Chamorro MD [phone] Name: MARCE BOWER [facility] : 1985 Age/S: 33/F [address] Unit #: [id number] Loc: [place], [place] [address] Phys: Marcos Bonilla Acct: [id number] Dis Date: Status: REG ER PHONE #: [phone] Exam Date: 05/29/2019 1253 FAX #: [phone] Reason: cough EXAMS: CPT CODE: [id number] XR CHEST 1 V 44754 - XR CHEST 1 V PROVIDED REASON [...] DEE MILLER RT(R) ARRT Transcribed Date/Time/By: 05/29/2019 (1203) :[email or web address] Orig Print D/T: S: 05/29/2019 (1864) Automated exposure control, iterative reconstruction technique, and/oradjustment of mA and/or kV according to patient's size was utilizedfor optimum radiation dose reduction. PAGE 1 Signed ReportUA RFLX MICR CULT IF [id number] 13:21:00 Test Item Value Reference Range Interpretation [...] for culture: Sev. Sepsis-no other srcHEPATIC FUNCTION [id number] 13:19:00 Test Item Value Reference Range Interpretation [...] 45-117 N TOTAL (test code = ALKP) [id number] 13:19:00 Test Item Value Reference Range Interpretation [...] code = ng/mL 0.00-0.05 PROCAL) CBC W/AUTO [id number] 13:06:00 Test Item Value Reference Range Interpretation [...] 0.00 K/mm3 0.00-0.20 N NRBC#) CHEMISTRY 8 [id number] 12:48:00 Test Item Value Reference Range Interpretation [...] 0.6 MG/DL 0.6-1.0 N CREATBED) POC LACTIC [id number] 12:43:00 Test Item Value Reference Range Interpretation Comments POC LACTIC ACID 2.86 MMOL/L 0.40-2.00 H RESULTS CALL ED TO [] (test code = POCLAC) AT 1243 05/29/19.NMI-MT CRITICA L VALUE READ BA CK BY NURSE AND VERIF IED BY TECH? []REFEREN CE RANGES FOR: 1) ARTERIAL SAMPLE (0.5-1.6MMOL/L) 2) SPINAL FLUID (0.6-2.2MMOL/L) UR HCG [id number] 23:25:00 Test Item Value Reference Range Interpretation Comments UR HCG QUAL (test code = HCGQLU) NEGATIVE Do not do if urine colorless or bloody CLEARUPG RESULT: NEGATIVEPERFORMED BY: LCHCG LOT # : [id number] EXPIRATION DATE: 10/20/20HCG PROCEDURAL CONTROL VERIFIED KIT LOT # [id number]. DATE 10/20/20- CT ABD PELVIS [id number] 16:29:00 Bowers: MARYURI St: [facility] 1985 Age[facility]S: 33/F [address] Unit #: [id number] Loc: [place], [place] [address] Phys: Beto Puri MD Acct: [id number] Dis Date: Status: REG ER PHONE #: [phone] Exam Date: 04/17/2019 1540 FAX #: [phone] Reason: ABD PAIN, RLQ CTDI: DLP: Automated exposure control, iterative reconstruction technique, and/oradjustment of mAand/or kV according to patient's size was utilized fooptimum radiation dose reduction. EXAMS: CPT CODE: [id number] CT ABD PELVIS W/CONT 54254 - CT ABD PELVIS W/CONT REASON FOR [...] joint; chronic PAGE 1 Signed Report (CONTINUED) Bowers: MARYURI St: [facility] 1985 Age/S: 33/F [address] Unit #: [id number] Loc: [place], [place] [address] Phys: Beto Puri MD Acct: [id number] Dis Date: Status: REG ER PHONE #: [phone] Exam Date: 04/17/2019 1540 FAX #: [phone] Reason: ABD PAIN, RLQ CTDI: DLP: Automated exposure control, iterative reconstruction technique, and/oradjustment of mA and/or kV according to patient's size was utilized fooptimum radiation dose reduction. EXAMS: CPT CODE: [id number] CT ABD PELVIS W/CONT 23685 <Continued> IMPRESSION: No acute process in the abdomen or pelvis. The appendix is normal. Location: V20 at 9712 Reported and signed by:DEANDRE ROJAS MD Facility ACR Accreditation for [place] - March 2012 CC: Latasha Corado CAMP MANAGER; Beto Puri MD; Bentley Arnett MD Technologist: LILIAN BOWER RT(R) (ARRT) Transcribed Date/Time/By: 04/17/2019 (6662) : By: [email or web address] Orig Print D/T: S: 04/17/2019 (0973) PAGE 2 Signed ReportURINALYSIS W/O [id number] 15:21:00 Test Item Value Reference Range Interpretation [...] (test code = LEUU) SOURCE: URINESPECIMEN DESCRIPTION: [facility] [id number] 15:21:00 Test Item Value Reference Range Interpretation Comments UA WBC (test code = WBCU) 2-5 0-5 UA RBC (test code = RBCU) 1-5 0-5 UA BACTERIA (test code = BACU) 1+ NONE SEEN UA SQUAMOUS CELLS (test code = 5-10 #/lpf NONE SEEN SQU) SOURCE: URINESPECIMEN DESCRIPTION: CMCURINALYSIS W/O [id number] 14:48:00 Test Item Value Reference Range Interpretation [...] (test code = LEUU) SOURCE: URINESPECIMEN DESCRIPTION: [facility] [id number] 14:48:00 Test Item Value Reference Range Interpretation Comments UA WBC (test code = WBCU) 0-5 UA RBC (test code = RBCU) 0-5 SOURCE: URINESPECIMEN DESCRIPTION: CMCURINALYSIS W/O [id number] 14:48:00 Test Item Value Reference Range Interpretation [...] (test code = LEUU) SOURCE: URINESPECIMEN DESCRIPTION: [facility] [id number] 14:48:00 Test Item Value Reference Range Interpretation Comments UA WBC (test code = WBCU) 0-5 UA RBC (test code = RBCU) 0-5 SOURCE: URINESPECIMEN DESCRIPTION: [facility] [id number] 13:28:00 Test Item Value Reference Range Interpretation [...] TOTAL (test code = ALKP) CHEMISTRY 8 [id number] 13:08:00 Test Item Value Reference Range Interpretation [...] 0.7 MG/DL 0.6-1.0 N CREATBED) CBC W/AUTO [id number] 12:37:00 Test Item Value Reference Range Interpretation [...] 0.00-0.20 N NRBC#) - XR NECK SOFT [id number] 12:32:00 FAX: Latasha Corado [phone] Camps: ER St: REG FAX: Beto Montgomery MD FAX: Bentley Chamorro MD [phone] Name: MARCE BOWER [facility] : 1985 Age/S: 33/F [address] Unit #: [id number] Loc: [place], [place] [address] Phys: Beto Puri MD Acct: [id number] Dis Date: Status: REG ER PHONE #: [phone] Exam Date: 04/17/2019 1212 FAX #: [phone] Reason: PAIN EXAMS: CPT CODE: [id number] XR NECK SOFT TISSUE 39492 - XR NECK SOFT TISSUE PROVIDED REASON FOR EXAM: PAIN Comparison: None available. FINDINGS: Lung apices are clear. Prevertebralsoft tissues are unremarkable. Facets are well aligned.. No acute fracture or subluxation. Regional soft tissues are unremarkable. IMPRESSION: No acute process. Location: V20 at 1232 Reported and signed by: DEANDRE ROJAS MD CC: Latasha Corado CAMP MANAGER; Beto Puri MD; Bentley Arnett MD Technologist: DEE MILLER RT(R) ARRT Transcribed Date/Time/By: 04/17/2019 (4942) :[email or web address] Orig Print D/T: S: 04/17/2019 (6896) Automated exposure control, iterative reconstruction technique, and/oradjustment of mA and/or kV according to patient's size was utilizedfor optimum radiation dose reduction. PAGE 1 Signed ReportUR HCG [id number] 05:51:00 Test Item Value Reference Range Interpretation Comments UR HCG QUAL (test code = HCGQLU) NEGATIVE UPG RESULT: NEGATIVEPERFORMED BY: SMHCG LOT # : [id number] EXPIRATION DATE: 07/22/20HCG PROCEDURAL CONTROL VERIFIED KIT LOT # [id number]. DATE 07/22/20COMPREHENSIVE METABOLIC [id number] 04:54:00 Test Item Value Reference Range Interpretation [...] TOTAL (test code = ALKP) COMPREHENSIVE METABOLIC [id number] 04:48:00 Test Item Value Reference Range Interpretation [...] code = ALKP) - XR CHEST 2 [id number] 04:44:00 FAX: Eric Arnett MD [phone] Camps: ER St: REG Name: MARCE BOWER [facility] : 1985 Age/S: 33/F [address] [facility] Unit #: [id number] Loc: [place], [place] [address] Phys: Eric Arnett MD Acct: [id number] Dis Date: Status: REG ER PHONE #: [phone] Exam Date: 03/28/2019 0425 FAX #: [phone] Reason: cp EXAMS: CPT CODE: [id number] XR CHEST 2 V 06630 HISTORY: Chest pain. Location: C3 COMPARISON:None FINDINGS: 2 views of the chest are provided. Heart size and vascularity are within normal limits. The lungs are clear of focal consolidation. No effusion, pneumothorax, or acute osseous abnormality. IMPRESSION: 1. No focal consolidation. No other acute abnormalities. at 5861 Reported and signed by: JV GUIDO M.D. CC: Eric Arnett MD Technologist: DEE MILLER, RT(R) ARRT Transcribed Date/Time/By: 03/28/2019 (0444) :[email or web address] Orig Print D/T: S: 03/28/2019 (0447) Automated exposure control, iterative reconstruction technique, and/oradjustment of mA and/or kV according to patient's size was utilizedfor optimum radiation dose reduction. PAGE 1 Signed ReportC W/AUTO [id number] 04:33:00 Test Item Value Reference Range Interpretation [...] 0.00 K/mm3 0.00-0.20 N NRBC#) TROPONIN I [id number] 04:19:00 Test Item Value Reference Range Interpretation Comments TROPONIN I RAPID 0.00 NG/ML 0.00-0.08 N 0.00 - 0.08 (test code = Normal0.09 - 0. 40 TROPIRAP) Indeterminate f or AMI 0.41 and above Compatible with AMI HEPATIC FUNCTION [id number] 00:40:00 Test Item Value Reference Range Interpretation [...] 45-117 N TOTAL (test code = ALKP) [id number] 00:40:00 Test Item Value Reference Range Interpretation Comments LIPASE (test code = 76 U/L 73-393 N Reportin g units: LIP) International U nits/L URINALYSIS W/O [id number] 00:39:00 Test Item Value Reference Range Interpretation [...] (test code = LEUU) SOURCE: URINESPECIMEN DESCRIPTION: [facility] [id number] 00:39:00 Test Item Value Reference Range Interpretation Comments UA WBC (test code = WBCU) 0-2 0-5 UA RBC (test code = RBCU) 0-2 0-5 UA BACTERIA (test code = BACU) 2+ NONE SEEN UA SQUAMOUS CELLS (test code = SQU) 3-5 #/lpf NONE SEEN SOURCE: URINESPECIMEN DESCRIPTION: [facility] [place] ABDOMEN [id number] 00:34:00 Bowers: [facility] St: REG Name: MARCE BOWER SUKUMAR [facility] [place] [facility] : 1985 Age/S: 33/F [address] [id number] Loc: [place], [place] [address] Phys: Desiree Rodriguez MD Acct: [id number] Dis Date: Status: REG ER PHONE #: [phone] Exam Date: 02/26/2019 0013 FAX #: [phone] Reason: abdominal pain EXAMS: CPT CODE: [id number] US ABDOMEN LTD 81493 HISTORY: Pain COMPARISON: None FINDINGS: The gallbladder [...] code = LEUU) SOURCE: URINESPECIMEN DESCRIPTION: [facility] [id number] 00:32:00 Test Item Value Reference Range Interpretation Comments UA WBC (test code = WBCU) 0-5 UA RBC (test code = RBCU) 0-5 SOURCE: URINESPECIMEN DESCRIPTION: CMCURINALYSIS W/O [id number] 00:32:00 Test Item Value Reference Range Interpretation [...] code = LEUU) SOURCE: URINESPECIMEN DESCRIPTION: [facility] [id number] 00:32:00 Test Item Value Reference Range Interpretation Comments UA WBC (test code = WBCU) 0-5 UA RBC (test code = RBCU) 0-5 SOURCE: URINESPECIMEN DESCRIPTION: [facility] W/AUTO [id number] 00:18:00 Test Item Value Reference Range Interpretation [...] 0.00 K/mm3 0.00-0.20 N NRBC#) CHEMISTRY 8 [id number] 23:59:00 Test Item Value Reference Range Interpretation [...] 0.8 MG/DL 0.6-1.0 N CREATBED) URINALYSIS W/O [id number] 06:54:00 Test Item Value Reference Range Interpretation [...] CMCUDS PROCEDURAL CONTROL VERIFIED? YKIT LOT # [id number]. DATE DRUGS OF ABUSE SCREEN [id number] 06:54:00 Test Item Value Reference Range Interpretation [...] CMCUDS PROCEDURAL CONTROL VERIFIED? YKIT LOT # [id number]. DATE URINALYSIS W/O [id number] 06:51:00 Test Item Value Reference Range Interpretation [...] (test code = LEUU) SOURCE: URINESPECIMEN DESCRIPTION: [facility] SCREEN [id number] 06:51:00 Test Item Value Reference Range Interpretation [...] [place]) NEGATIVE SOURCE: URINESPECIMEN DESCRIPTION: CMCUR HCG [id number] 06:43:00 Test Item Value Reference Range Interpretation Comments UR HCG QUAL (test code = HCGQLU) NEGATIVE UPG RESULT: NEGATIVEPERFORMED BY: MLMHCG LOT # : [id number] EXPIRATION DATE: 02/20/20HCG PROCEDURAL CONTROL VERIFIED YKIT LOT # [id number]. DATE 02/20/20CBC W/AUTO [id number] 05:46:00 Test Item Value Reference Range Interpretation [...] 0.00 K/mm3 0.00-0.20 N NRBC#) BASIC METABOLIC [id number] 05:15:00 Test Item Value Reference Range Interpretation [...] 8.6 mg/dL 7.8-10.9 N CA) BASIC METABOLIC [id number] 05:12:00 Test Item Value Reference Range Interpretation [...] CA) 8.6 mg/dL 7.8-10.9 N HEPATIC FUNCTION [id number] 05:12:00 Test Item Value Reference Range Interpretation [...] 45-117 N TOTAL (test code = ALKP) [id number] 05:12:00 Test Item Value Reference Range Interpretation Comments ACETAMINOPHEN (test code = ACET) <2 mcg/mL 10-25 L [id number] 05:12:00 Test Item Value Reference Range Interpretation Comments SALICYLATE (test code = TASHA) 3.3 mg/dL 2.8-20.0 N [id number] 05:12:00 Test Item Value Reference Range Interpretation [...] BLOODARE NEEDED TO ASSES S THE EFFECT. [id number] 11:46:00 RUN DATE: 08/15/18 [facility] LAB LIVE PAGE 1 RUN TIME: 1146 Specimen Inquiry RUN USER: INTERFACE PATIENT: MARCE BOWER LOC: [facility] U #: [id number] AGE/SX: 32/F ROOM: [facility] RE08/11[facility]18[facility]: Dmitri Contreras MD : [birth year] BED: 01 DIS: 08/13/18 STATUS: DIS IN TLOC: SPEC #: [id number] RECD: 08/11/18-115 STATUS: RAMON RODRIGUEZ #: [id number] GABRIELE: 08/11/18-[address]: Dmitri Contreras MD ENTERED: 08/12/18 SP TYPE: SURGICAL OTHR DR: Jeff Arguello MD, Viji CRNAORDERED: GROSS/MICRO V CODES: [id number] - PLACENTA, NOS COPIES TO: Jeff Arguello MD Raquel Mancilla [address] [place] [address] Dmitri Contreras MD [address] [place] [address] Tete Pickering BRANCH SERVICE REPRESENTATIVE [address] [facility] [place] [address] PROCEDURES: GROSS/MICRO V (08/12/18) TISSUES: A. PLACENTA, [...] CONTINUED ON NEXT PAGE RUN DATE: 08/15/18 [facility] [place] [facility] LIVE PAGE 2 RUN TIME: 1146 Specimen Inquiry RUN USER: INTERFACE SPEC #: [id number] PATIENT: MARCE BOWER #[id number] (Continued) GROSS DESCRIPTION Specimen 1 received in [...] no masses or other focal lesions identified. Director Of Maintenance sections are submitted as follows: 1A - patient portal representative sections of the umbilical cord. 1B - membranres. 1C-1D - full thickness sections of the chorionic plate. 1E - patient portal representative section of the infarcted area. RPE five blocks 1A - 1E. MICROSCOPIC DESCRIPTION Microscopic examination of all glass slides. Signed SIGNATURE ON FILE Foreign Drake 08/15/18 1146 END OF REPORT
--- NOTE | 2021-07-28 18:22 | ER ---
Nurse's Notes [facility] Name: Bethany Duarte Age: 35 yrs Sex: Female : 1985 Arrival Date: 07/28/2021 Time: 17:28 Bed 20 Private MD: Apoorva Pan Diagnosis: Adjustment disorder with anxiety;Post-traumatic stress disorder (PTSD);Bipolar disorder, unspecified Presentation: 07/28 17:48 Chief complaint: Patient states: 'Bre been seeing my psychiatrist for help I told her vg1 that my anxiety is getting worse, my panic attacks are becoming overwhelming. My dads two year anniversary is coming up and my mom is going to need surgery to have her eye removed bc of a stroke, I just need help with this, I dont know what else to do I feel like my medication is not working.'. Ebola Screen: Patient negative for fever greater than or equal to 101.5 degrees Fahrenheit, and additional compatible Ebola Virus Disease symptoms. Initial Sepsis Screen: Does the patient meet any 2 criteria? No. Patient's initial sepsis screen is negative. Does the patient have a suspected source of infection? No. Patient's initial sepsis screen is negative. Risk Assessment: Do you want to hurt yourself or someone else? Patient reports no desire to harm self or others. Onset of symptoms was July 28, 2021. 17:48 Method Of Arrival: Ambulatory vg1 17:48 Acuity: SHERLYN 3 vg1 Triage Assessment: 17:52 General: Appears uncomfortable, Behavior is anxious, crying. Pain: Denies pain. 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 - Social history:: Smoking status: Patient reports the use of cigarette tobacco products, smokes one pack cigarettes per day. - Family history:: not pertinent. Vital Signs: 17:48 BP 117 / 74; Pulse 93; Resp 18; Temp 98.6; Pulse Ox 99% ; vg1 ED Course: 17:28 Patient arrived in ED. am2 17:29 Aoporva Pan is Private Physician. am2 17:40 Garo Aguilera MD is Attending Physician. [facility] 17:50 Triage completed. vg1 17:52 Arm band placed on. vg1 18:06 Mira Gomez, RN is Primary Nurse. [facility] 18:20 Apoorva Pan is Referral Physician. [facility] 18:20 Chi Laura MD is Referral Physician. [facility] Administered Medications: 18:24 Drug: Ativan (LORazepam) 2 mg Route: PO; [facility] 18:28 Drug: ZyPREXA (OLANZapine) 20 mg Route: PO; [facility] Outcome: 18:22 Discharge ordered by . [facility] 18:28 Patient left the ED. [facility] Signatures: Garo Aguilera MD MD cha Moreno, Amanda am2 Kaylynn Arnett, RN RN [facility] Mira Gomez, WALLACE RN [facility]
--- NOTE | 2021-07-28 18:22 | EDPHYS ---
Physician Documentation [facility] Name: Bethany Duarte Age: 35 yrs Sex: Female : 1985 Arrival Date: 07/28/2021 Time: 17:28 Bed 20 Private MD: Apoorva Pan ED Physician Garo Aguilera HPI: 07/28 18:16 This 35 yrs old Female presents to ER via Ambulatory with complaints of Psych kate Problem, panic attacks/bipolar. 18:16 The patient presents to the emergency department with depression. Onset: The kate symptoms/episode began/occurred 5 day(s) ago. Past psychiatric history: Prior diagnosis: bipolar disorder. Associated signs and symptoms: Pertinent positives; anxiety, depression. Severity of symptoms: At their worst the symptoms were moderate in the emergency department the symptoms have resolved. The patient has experienced similar episodes in the past, several times. 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 - Social history:: Smoking status: Patient reports the use of cigarette tobacco products, smokes one pack cigarettes per day. - Family history:: not pertinent. ROS: 18:16 Constitutional: Negative for fever, chills, and weight loss, Eyes: Negative for injury, kate pain, redness, and discharge, ENT: Negative for injury, pain, and discharge, Neck: Negative for injury, pain, and swelling, Cardiovascular: Negative for chest pain, palpitations, and edema, Respiratory: Negative for shortness of breath, cough, wheezing, and pleuritic chest pain, Abdomen/GI: Negative for abdominal pain, nausea, vomiting, diarrhea, and constipation, Back: Negative for injury and pain, : Negative for injury, bleeding, discharge, and swelling, MS/Extremity: Negative for injury and deformity, Skin: Negative for injury, rash, and discoloration, Neuro: Negative for headache, weakness, numbness, tingling, and seizure, Allergy/Immunology: Negative for hives, rash, and allergies, Endocrine: Negative for neck swelling, polydipsia, polyuria, polyphagia, and marked weight changes, Hematologic/Lymphatic: Negative for swollen nodes, abnormal bleeding, and unusual bruising. 18:16 Psych: Positive for anxiety, depression. Exam: 18:16 Constitutional: This is a well developed, well nourished patient who is awake, alert, kate and in no acute distress. Head/Face: Normocephalic, atraumatic. Eyes: Pupils equal round and reactive to light, extra-ocular motions intact. Lids and lashes normal. Conjunctiva and sclera are non-icteric and not injected. Cornea within normal limits. Periorbital areas with no swelling, redness, or edema. ENT: Nares patent. No nasal discharge, no septal abnormalities noted. Tympanic membranes are normal and external auditory canals are clear. Oropharynx with no redness, swelling, or masses, exudates, or evidence of obstruction, uvula midline. Mucous membranes moist. Neck: Trachea midline, no thyromegaly or masses palpated, and no cervical lymphadenopathy. Supple, full range of motion without nuchal rigidity, or vertebral point tenderness. No Meningismus. Chest/axilla: Normal chest wall appearance and motion. Nontender with no deformity. No lesions are appreciated. Cardiovascular: Regular rate and rhythm with a normal S1 and S2. No gallops, murmurs, or rubs. Normal PMI, no JVD. No pulse deficits. Respiratory: Lungs have equal breath sounds bilaterally, clear to auscultation and percussion. No rales, rhonchi or wheezes noted. No increased work of breathing, no retractions or nasal flaring. Abdomen/GI: Soft, non-tender, with normal bowel sounds. No distension or tympany. No guarding or rebound. No evidence of tenderness throughout. Back: No spinal tenderness. No costovertebral tenderness. Full range of motion. Skin: Warm, dry with normal turgor. Normal color with no rashes, no lesions, and no evidence of cellulitis. MS/ Extremity: Pulses equal, no cyanosis. Neurovascular intact. Full, normal range of motion. Neuro: Awake and alert, GCS 15, oriented to person, place, time, and situation. Cranial nerves II-XII grossly intact. Motor strength 5/5 in all extremities. Sensory grossly intact. Cerebellar exam normal. Normal gait. 18:16 Psych: Behavior/mood is anxious, Affect is animated, Oriented to person, place, time, Patient has no thoughts/intents to harm self or others. Judgement / Insight is normal. Memory is normal. Delusions/hallucinations are not present. Vital Signs: 17:48 BP 117 / 74; Pulse 93; Resp 18; Temp 98.6; Pulse Ox 99% ; vg1 MDM: 17:40 Patient medically screened. kate 18:19 Differential diagnosis: acute psychotic break, depression. Data reviewed: vital signs, [facility] nurses notes. Data interpreted: attenuator: rate is 93 beats/min, rhythm is regular, Pulse oximetry: on room air is 99 %. Test interpretation: by ED physician or midlevel provider:. Counseling: I had a detailed discussion with the patient and/or guardian regarding: the historical points, exam findings, and any diagnostic results supporting the discharge/admit diagnosis, lab results, radiology results, the need for outpatient follow up, for definitive care, a family practitioner, a psychiatrist. 07/28 17:40 Order name: Acetaminophen [facility] 07/28 17:40 Order name: Basic Metabolic Panel [facility] 07/28 17:40 Order name: CBC with Diff [facility] Administered Medications: 18:24 Drug: Ativan (LORazepam) 2 mg Route: PO; jh5 18:28 Drug: ZyPREXA (OLANZapine) 20 mg Route: PO; jh5 Disposition Summary: 07/28/21 18:22 Discharge Ordered Location: Home [facility] Problem: new kate Symptoms: have improved kate Condition: Stable kate Diagnosis - Adjustment disorder with anxiety kate - Post-traumatic stress disorder (PTSD) kate - Bipolar disorder, unspecified kate Followup: kate - With: Apoorva Pan - When: 2 - 3 days - Reason: Recheck today's complaints, Continuance of care, Re-evaluation by your physician Followup: akte - With: Chi Laura MD - When: 2 - 3 days - Reason: Recheck today's complaints, Re-evaluation by your physician Discharge Instructions: - Discharge Summary Sheet kate - Post-Traumatic Stress Disorder, Adult kate - Managing Bipolar Disorder kate - Mixed Bipolar Disorder kate Forms: - Medication Reconciliation Form kate - Thank You Letter kate - Antibiotic Education [facility] - Prescription Opioid Use [facility] Prescriptions: - Klonopin 1 mg Oral Tablet - take 1 tablet by ORAL route every 12 hours As needed; 20 tablet; Refills: 0, [facility] Product Selection Permitted - Zyprexa 10 mg Oral Tablet - take 1 tablet by ORAL route once daily; 20 tablet; Refills: 0, Product [facility] Selection Permitted Signatures: Dispatcher [employer] EDMS Garo Aguilera MD MD cha Garcia, Victoria RN RN vg1 Mira Gomez RN RN jh5 Corrections: (The following items were deleted from the chart) 18:10 17:41 Acetaminophen Level ordered. EDMS EDMS 18:10 17:41 Basic Metabolic Panel ordered. EDMS EDMS 18:10 17:41 CBC with Automated Diff ordered. EDMS EDMS 18:10 17:42 ETHANOL+C.LAB.BRZ ordered. EDMS EDMS 18:10 17:42 HEPATIC FUNCTION+C.LAB.BRZ ordered. EDMS EDMS 18:10 17:42 PROTIME (+INR)+COAG.LAB.BRZ ordered. EDMS EDMS 18:10 17:42 PTT, ACTIVATED+COAG.LAB.BRZ ordered. EDMS EDMS 18:10 17:42 SALICYLATE+C.LAB.BRZ ordered. EDMS EDMS 18:10 17:42 URINE DRUG SCREEN+CHEM UR.LAB.BRZ ordered. EDMS EDMS 18:18 17:40 EKG - Nurse/Tech ordered. [place] [id number] 18:18 17:40 IV Saline Lock [place]. [place] [id number] 18:18 17:40 Suicide Screening ([place]) [place]. [place] [id number] 18:19 17:40 Labs collected and sent ordered. [place] [id number] 18:19 17:40 Urine Dipstick-Ancillary ordered. [place] [id number] 18:19 17:40 Urine Test [place]. [place] [id number]
[2021-07-28] MEDS ORDERED: LORAZEPAM 1 MG TABLET ONE (18:23)
[2021-07-28 18:33] VITALS: BP 117/74; TEMP 98.6; O2SAT 99
== END 2021-07-28 18:28 | disposition home or self-care (01) ==
LOC: ER 17:28
DX: F43.10 Post-traumatic stress disorder, unspecified (principal); F31.9 Bipolar disorder, unspecified; F17.210 Nicotine dependence, cigarettes, uncomplicated; Z88.5 Allergy status to narcotic agent; Z91.040 Latex allergy status; Z91.048 Other nonmedicinal substance allergy status
CPT/HCPCS: 99282